=== PATIENT | male | born 1950 | race Caucasian/White ===

== ENCOUNTER 2018-05-17 08:16 | Outpatient (CLI) | payer OTHER, SELFPAY ==
[2018-05-17 08:35] LABS: Bilirubin Negative (Negative); Blood Negative (Negative); Clarity Clear; Glucose Negative (Negative); Ketones Negative (Negative); Leukocyte Esterase Negative (Negative); Nitrite Negative (Negative); Specific Gravity >= 1.030 (1.005-1.025); Urobilinogen 0.2 EU/dL (Up TO 0.2)
[2018-05-17 09:06] LABS: COMMENT (LAB VIEW ONLY) 278.23 mg/dL; Microalb ug/mg Crea 4.6 ug/mg Cr
[2018-05-17 10:57] LABS: CREATININE 0.91 mg/dL (0.70-1.30); Magnesium 1.9 mg/dL (1.8-2.4); Vitamin B12 258 pg/mL (193-986)
[2018-05-18 12:43] LABS: Hepatitis C Ab w Rflx HCV PCR Negative (NEGAT)
== END 2018-05-17 08:36 ==
LOC: LBO 08:16 → NCHCO 08:20
PROVIDERS: PCP Internal Medicine; Visit Provider Nurse Practitioner Family
DX: I10 Essential (primary) hypertension (principal); F43.0 Acute stress reaction; K50.90 Crohn's disease, unspecified, without complications; K21.9 Gastro-esophageal reflux disease without esophagitis; G47.33 Obstructive sleep apnea (adult) (pediatric); Z11.59 Encounter for screening for other viral diseases
CPT/HCPCS: 36415; 86803; 81003; 82043; 82565; 82570; 82607; 83735

== ENCOUNTER 2018-11-01 08:12 | Outpatient (CLI) | payer OTHER, SELFPAY ==
[2018-11-01 09:31] LABS: Cholesterol 129 mg/dL (50-200); HDL Cholesterol 41 mg/dL (40-60); LDL CHOLESTEROL 62 mg/dL (<100); Triglyceride 152 mg/dL (30-150)
== END 2018-11-01 08:32 ==
PROVIDERS: PCP Internal Medicine; Visit Provider Nurse Practitioner Family
DX: Z13.220 Encounter for screening for lipoid disorders (principal)
CPT/HCPCS: 36415; 80061; 83721

== ENCOUNTER 2019-02-13 11:21 | Outpatient (REF) | payer OTHER, SELFPAY ==
[2019-02-13 21:14] LABS: HCT 43.1 % (40.0-50.0); HGB 14.4 g/dL (13.5-17.5); Mean Corp. HGB Concentration 33.4 g/dL (32.0-36.0); Mean Corpuscular Hemoglobin 28.7 pg (27.0-33.0); Mean Platelet Volume 10.7 fL (8.0-11.0); Platelet Count 347 x1000/uL (130-400); RBC 5.01 m/cumm (4.50-6.00); RBC Distribution Width 13.1 % (11.8-14.1); White Blood Cell Count 7.81 k/cumm (4.4-10.8)
[2019-02-13 21:41] LABS: ALT 31 U/L (12-78); AST 24 U/L (15-37); Albumin 4.1 g/dL (3.4-5.0); Alkaline Phosphatase 56 U/L (46-116); BUN 16 mg/dL (7-18); Bilirubin, Total 0.5 mg/dL (0.2-1.0); CREATININE 0.92 mg/dL (0.70-1.30); Calcium 8.8 mg/dL (8.5-10.1); Chloride 105 mmol/L (98-107); Glucose 88 mg/dL (70-100); Potassium 3.9 mmol/L (3.5-5.1); Sodium 143 mmol/L (136-145); TSH (W/Ref FT4) 1.84 uIU/mL (0.36-3.74); Total Protein 7.2 g/dL (6.4-8.2)
== END 2019-02-13 11:41 ==
LOC: NCHCN 11:21
PROVIDERS: PCP Internal Medicine; Visit Provider Specialist/Technologist Athletic Trainer
DX: Z00.00 Encounter for general adult medical examination without abnormal findings (principal); Z13.29 Encounter for screening for other suspected endocrine disorder; Z13.228 Encounter for screening for other metabolic disorders; Z13.0 Encounter for screening for diseases of the blood and blood-forming organs and certain disorders involving the immune mechanism
CPT/HCPCS: 80053; 85027; 84443

== ENCOUNTER 2019-02-24 11:40 | Outpatient (REF) | payer OTHER, SELFPAY ==
[2019-02-27 12:19] LABS: Syphilis Serology (RPR) Negative (Negative)
[2019-02-27 14:23] LABS: HIV-1/2 Ag & Ab Screen Negative (NEGAT)
== END 2019-02-24 12:00 ==
LOC: NCHCN 11:40
PROVIDERS: PCP Internal Medicine; Visit Provider Specialist/Technologist Athletic Trainer
DX: Z11.3 Encounter for screening for infections with a predominantly sexual mode of transmission (principal); Z11.4 Encounter for screening for human immunodeficiency virus [HIV]
CPT/HCPCS: 87389; 86592

== ENCOUNTER 2019-06-01 10:34 | Outpatient (CLI) | payer OTHER, SELFPAY ==
[2019-06-02 10:03] LABS: PSA, Screening 7.5 ng/ml (0-6.5)
== END 2019-06-01 10:54 ==
PROVIDERS: PCP Internal Medicine; Visit Provider Nurse Practitioner Gerontology
DX: N40.1 Benign prostatic hyperplasia with lower urinary tract symptoms (principal); Z12.5 Encounter for screening for malignant neoplasm of prostate
CPT/HCPCS: 36415; 84153

== ENCOUNTER 2019-08-04 07:28 | Outpatient (CLI) | payer OTHER, SELFPAY ==
[2019-08-07 11:53] LABS: PSA, Screening 8.4 ng/mL (0.0-6.5)
== END 2019-08-04 07:48 ==
PROVIDERS: PCP Internal Medicine; Visit Provider Nurse Practitioner Gerontology
DX: N40.1 Benign prostatic hyperplasia with lower urinary tract symptoms (principal); Z12.5 Encounter for screening for malignant neoplasm of prostate
CPT/HCPCS: 36415; 84153

== ENCOUNTER 2019-08-18 07:50 | Outpatient (CLI) | payer OTHER, SELFPAY ==
[2019-08-18 08:56] LABS: HCT 40.5 % (40.0-50.0); HGB 13.4 g/dL (13.5-17.5); Mean Corp. HGB Concentration 33.1 g/dL (32.0-36.0); Mean Corpuscular Hemoglobin 28.7 pg (27.0-33.0); Mean Corpuscular Volume 86.7 fL (80-95); Mean Platelet Volume 10.4 fL (8.0-11.0); Platelet Count 324 x1000/uL (130-400); RBC 4.67 m/cumm (4.50-6.00); RBC Distribution Width 12.8 % (11.8-14.1); White Blood Cell Count 5.71 k/cumm (4.4-10.8)
[2019-08-18 09:19] LABS: Anion Gap 8.5 mmol/L (3-11); BUN 16 mg/dL (7-18); CO2 29.5 mmol/L (21.0-32.0); CREATININE 0.97 mg/dL (0.70-1.30); Calcium 8.6 mg/dL (8.5-10.1); Chloride 108 mmol/L (98-107); Glucose 89 mg/dL (74-106); Potassium 4.2 mmol/L (3.5-5.1); Sodium 146 mmol/L (136-145)
== END 2019-08-18 08:10 ==
PROVIDERS: PCP Internal Medicine; Visit Provider Internal Medicine
DX: R55 Syncope and collapse (principal)
CPT/HCPCS: 36415; 80048; 85027

== ENCOUNTER 2019-09-06 10:58 | Outpatient (CLI) | payer OTHER, SELFPAY ==
[2019-09-06 11:41] LABS: Bilirubin Negative (Negative); Blood Negative (Negative); Clarity Clear (Clear); Glucose Negative (Negative); Ketones Negative (Negative); Leukocyte Esterase Negative (Negative); Nitrite Negative (Negative); Specific Gravity 1.015 (1.005-1.025); Urobilinogen 0.2 EU/dL (Up TO 0.2)
[2019-09-06 12:06] LABS: COMMENT (LAB VIEW ONLY) 106.63 mg/dL; Microalb ug/mg Crea 13.2 ug/mg Cr
[2019-09-06 12:38] LABS: Vitamin B12 252 pg/mL (193-986)
== END 2019-09-06 11:18 ==
PROVIDERS: PCP Internal Medicine; Visit Provider Nurse Practitioner Family
DX: I10 Essential (primary) hypertension (principal); N40.0 Benign prostatic hyperplasia without lower urinary tract symptoms; M54.5 Low back pain; R55 Syncope and collapse; F43.23 Adjustment disorder with mixed anxiety and depressed mood; F41.8 Other specified anxiety disorders; G47.62 Sleep related leg cramps; K21.9 Gastro-esophageal reflux disease without esophagitis
CPT/HCPCS: 36415; 81003; 82043; 82570; 82607; 83735

== ENCOUNTER 2019-09-27 10:22 | Outpatient (CLI) | payer OTHER, SELFPAY ==
[2019-09-28 14:18] LABS: Free PSA/PSA Ratio 0.16 ratio
== END 2019-09-27 10:42 ==
PROVIDERS: PCP Internal Medicine; Visit Provider Nurse Practitioner Gerontology
DX: N40.1 Benign prostatic hyperplasia with lower urinary tract symptoms (principal); R97.20 Elevated prostate specific antigen [PSA]
CPT/HCPCS: 36415; 84154

== ENCOUNTER 2020-04-05 02:36 | Outpatient (CLI) | payer OTHER, SELFPAY | END 2020-04-05 02:56 | PROVIDERS: PCP Internal Medicine; Visit Provider Nurse Practitioner Gerontology | DX: N40.1 Benign prostatic hyperplasia with lower urinary tract symptoms (principal); Z12.5 Encounter for screening for malignant neoplasm of prostate | CPT/HCPCS: 36415; 84153 ==

== ENCOUNTER 2020-06-16 22:58 | Emergency (ER) | payer OTHER, SELFPAY ==
[2020-06-16] VITALS (11 sets, daily range): BP systolic 137–182; BP diastolic 71–83; PULSE 63–74; RESP 9–18; TEMP 36.5; O2SAT 98–100
--- NOTE | 2020-06-16 23:00 | RT.EKG_ITS ---
APPROVED REPORT Exam: Resting ECG Patient Location: E HR:67 bpm ECG Measurements Heart Rate 67 AXIS NM 203 P 83 QRSd 87 QRS -26 QT 422 T 60 QTc 445 Conclusion Sinus rhythm...normal P axis, V-rate 60- 99 Consider anterior infarct...Q >30mS in V2-V5
--- NOTE | 2020-06-16 23:15 | DI.CT_ITS ---
EXAM: CT HEAD WO CLINICAL HISTORY: dizziness,vertigo. TECHNIQUE: Imaging Protocol: Axial computed tomography images with coronal and sagittal reformatted images were created and reviewed COMPARISON: No exams were available for comparison FINDINGS: Ventricles and Extra axial spaces: Normal in size and morphology for the patient's age. Hemorrhage: None. Cerebral parenchyma: Normal. No infarct or mass. Mild atrophy consistent with the patient's age. Midline shift: None. Brainstem/Cerebellum: Normal. Calvarium: Normal. Visualized Paranasal sinuses/Mastoids: Opacification of the ethmoid sinuses as well as prominent circ umferential mucosal thickening involving the maxillary sinus and appearance suggesting chronic sinusi tis. There is no evidence of acute sinusitis or bony erosion. Mastoid air cells appear clear. Soft Tissues: Unremarkable. IMPRESSION: No acute intracranial process.Severe sinus disease. RADIATION DOSE DELIVERED: 760.2mGy.cm Total DLP DATA REPOSITORY: All CT scans at this facility are submitted to the National Radiology Data Registry (NRDR) Dose Index Registry (DIR) with the [employer] ([employer]). RADIATION OPTIMIZATION: All CT scans at this facility use at least one of these dose optimization te chniques: automated exposure control; mA and/or kV adjustment per patient size (includes targeted exa ms where dose is matched to clinical indication); or iterative reconstruction.
--- NOTE | 2020-06-16 23:18 | W.ED.GENAD ---
Discharge Plan Disposition Patient Disposition: HOME Condition: Stable Discharge Details Clinical Impression: Light-headed, Maxillary sinusitis, Hypokalemia Primary Care Provider: Anil Mcwilliams ED Provider: Cachorro Maharaj Home Meds and New Rx's Prescriptions: New amoxicillin-pot clavulanate [Augmentin] 875-125 mg tablet 1 tab PO BID Qty: 14 RF: 0 Continued tamsulosin [Flomax] 0.4 mg capsule 0.4 mg PO DAILY Qty: 90 RF: 3 venlafaxine 37.5 mg capsule,extended release 24hr 37.5 mg PO DAILY RF: 0 omeprazole 20 MG capsule,delayed release(DR/EC) 20 mg PO DAILY@0730 RF: 0 amlodipine 5 MG tablet 5 mg PO DAILY RF: 0 oxcarbazepine 300 mg tablet 300 mg PO DAILY RF: 0 sildenafil 100 mg tablet 100 mg PO PRN RF: 0 aspirin [Ecotrin Low Strength] 81 MG tablet,delayed release (DR/EC) 81 mg PO DAILY RF: 0 multivitamin 1 EACH capsule 1 ea PO DAILY RF: 0 Discharge Instructions Instructions: Sinusitis (ED), Hypokalemia (ED) Additional Instructions: your blood work showed your potassium level was mildly low, this should be rechecked when you follow up with your primary care provider within 1-2 weeks your cat scan showed sinus disease otherwise no concerning findings in the head if you feel more ill, have chest pain or difficulty breathing return to the emergency department Medical Decision Making 70 yo male with hx of bph, gerd, who comes in with 2 weeks of intermittent head fogginess and feeling lightheaded and dizziness with standing up primarily but has been more persistent today. Denies fevers, cough, headache, n/v, chest pain, dyspnea, falls. He arrives walking with normal gait and speaking in full sentences with clear speech. NIH of 0 on exam, CN II-XII intact, no neck stiffness, normal lung exam no carotid bruits. Suspect possible vertigo normal ecg so doubt arrythmia as feels lightheaded now with normal rhythm. Exam reassuring including HINTS exam that it is not central vertigo but given head fogginess sensation will image to evaluate for possible mass and monitor. He does have bilateral cerumen impaction, will have nursing irrigate this to see if it relieves any symptoms ct shows sinus disease otherwise unremarkable and labs show mild low K otherwise unremarkable, did have some relief of symptoms after ear irrigation and normal tm's on exam. He still has reassuring neuro exam and stable gait and is tolerating PO. Will d/c and have him f/u with pcp, return precautions given Differential Diagnosis Differential Diagnosis: vertigo, dizziness, anemia, electrolyte abnormality Medical Records Medical records reviewed: Yes I reviewed the patient's medical records. Imaging Data Radiologic Study: Attestation: I personally reviewed and interpreted this imaging study as follows: Imaging: CT Scan Radiologist's impression: IMPRESSION: 1. No acute intracranial findings. 2. Moderate sinus disease, likely at least partially chronic. Lab Data Lab results reviewed: Yes I reviewed the patient's lab results. ECG Data Attestation: I personally reviewed and interpreted this ECG (s) as follows: Prior ECG tracings: not available for review Interpretation: sinus rhythm, rate of 67, pr 203, qtc 445 HPI General Mode of arrival: ambulatory. Date/Time Provider Initiated Documentation: 06/16/20 22:58. Limitations to Documentation: no limitations. Information obtained by: patient. History of Present Illness 70 year old M presents to the emergency department with the chief complaint of head foggy, described as moderate, Patient started experiencing this week(s) (2) and it has been intermittent. No relieving factors improve symptom(s), No exacerbating factors reported . Patient did receive the following treatments prior to arrival, none Related Data Home Medications Medication Instructions Recorded Confirmed omeprazole 20 mg PO DAILY@0730 02/04/13 06/16/20 amlodipine 5 mg PO DAILY 11/01/14 06/16/20 aspirin [Ecotrin Low Strength] 81 mg PO DAILY 07/01/16 06/16/20 multivitamin 1 ea PO DAILY 07/01/16 06/16/20 tamsulosin 0.4 mg capsule 0.4 mg PO DAILY #90 cap 05/16/19 06/16/20 venlafaxine 37.5 mg 37.5 mg PO DAILY 05/16/19 06/16/20 capsule,extended release 24 hr oxcarbazepine 300 mg PO DAILY 06/16/20 06/16/20 sildenafil 100 mg PO PRN 06/16/20 06/16/20 amoxicillin-pot clavulanate 1 tab PO BID #14 tab 06/17/20 [Augmentin] Previous Rx's Medication Instructions Recorded tamsulosin 0.4 mg capsule 0.4 mg PO DAILY #90 cap 05/16/19 amoxicillin-pot clavulanate 1 tab PO BID #14 tab 06/17/20 [Augmentin] Allergies Allergy/AdvReac Type Severity Reaction Status Date / Time oxycodone Allergy Intermediate Hives, Verified 06/16/20 23:08 Itching lisinopril AdvReac Cough Verified 06/16/20 23:08 General Stated Complaint: Dizzy/Sync WAYNE: 3 Review of Systems All systems reviewed & are unremarkable except as noted in HPI and below Constitutional Constitutional: Denies chills, Denies fever(s) and Denies weakness Cardiovascular Cardiovascular: Denies chest pain and Denies dyspnea Respiratory Respiratory: Denies cough and Denies dyspnea Gastrointestinal Gastrointestinal: Denies abdominal pain, Denies nausea and Denies vomiting Musculoskeletal Musculoskeletal: Denies joint swelling Neurologic Neurologic: Denies weakness [facility] Medical History (Updated 06/17/20 @ 00:21 by Cachorro Maharaj MD) Abnormal EKG BPH (benign prostatic hyperplasia) GERD (gastroesophageal reflux disease) HBP (high blood pressure) Sleep apnea Surgical History (Updated 05/11/18 @ 14:35 by for; to (do) [facility] [place]) Repair of inguinal hernia (08/03/17) right, direct Transurethral prostatectomy Social History Smoking/Tobacco Use Status: Former Tobacco Use Smoking risk assessment performed?: Yes Alcohol Intake: current Alcohol Intake frequency: holidays/special occasions only Drug use: Never Do you feel safe at home: Yes Do you feel safe in your relationship?: Yes Exam Const General: no acute distress Orientation: alert [facility] Head: normal to inspection Ears: external ears normal General nose exam: external nose normal Mouth: moist mucous membranes Eyes General: appearance normal, both eyes and all related structures Neck Neck: normal visual inspection Resp Effort & Inspection: normal respiratory effort and able to speak in complete sentences Cardio Rate: regular rate Skin General skin exam: no rashes or lesions noted Neuro General: patient alert and patient oriented x3 Extrem General: normal to inspection Psych Mental Status: mental status grossly normal Course Vital Signs Vital signs: Vital Signs Temperature 36.5 C 06/16/20 23:02 Pulse 70 06/16/20 23:02 Respiratory Rate 13 06/16/20 23:02 Blood Pressure 182/79 H 06/16/20 23:02 Pulse Oximetry 99 06/16/20 23:02 Temperature 36.5 C 06/16/20 23:02 Pulse 70 06/16/20 23:02 Respiratory Rate 16 06/16/20 23:13 Respiratory Effort Non-Labored 06/16/20 23:13 Blood Pressure 182/79 H 06/16/20 23:02 Pulse Oximetry 99 06/16/20 23:02 Pain Level 0 06/16/20 23:02
[2020-06-16 23:30] LABS: Abs Immature Grans 0.02 10^3/uL (0.0-0.06); Absolute Basophil Count 0.06 10^3/uL (0.0-0.2); Absolute Eosinophil Count 0.33 10^3/uL (0.0-0.7); Absolute Lymphocyte Count 1.79 10^3/uL (1.2-3.4); Absolute Neutrophil Count 2.62 10^3/uL (1.2-6.7); Basophils % 1.1; Eosinophils % 6.2; HCT 39.5 % (40.0-50.0); HGB 13.7 g/dL (13.5-17.5); Immature Grans % 0.4; Lymphocytes % 33.6; MCH 29.7 pg (27.0-33.0); MCHC 34.7 % (32.0-36.0); MCV 85.5 fL (80-95); Monocytes % 9.4; Neutrophils % 49.3; Nucleated RBC 0 %; Platelet Count 268 10^3/uL (130-400); RBC 4.62 10^6/uL (4.36-5.78); RDW 12.3 % (11.8-14.1); RDW-SD 38.4 fL; WBC 5.32 10^3/uL (4.4-10.8)
[2020-06-16 23:44] LABS: ALT 26 U/L (16-63); AST 23 U/L (15-37); Alkaline Phosphatase 67 U/L (46-116); Anion Gap 9.3 mmol/L (3-11); BUN 15 mg/dL (7-18); Bilirubin, Total 0.3 mg/dL (0.2-1.0); CO2 25.7 mmol/L (21.0-32.0); Calcium 8.1 mg/dL (8.5-10.1); Chloride 107 mmol/L (98-107); Glucose 142 mg/dL (74-106); PTT Activated 21.9 sec (21.0-27.5); Potassium 3.1 mmol/L (3.5-5.1); Prothrombin Time 10.4 sec (9.3-11.0); Sodium 142 mmol/L (136-145); Total Protein 7.4 g/dL (6.4-8.2)
[2020-06-16 23:54] LABS: Magnesium 2.1 mg/dL (1.8-2.4)
[2020-06-16 23:55] LABS: ETHANOL BLOOD < 3.0 mg/dL (<3); Troponin I < 0.05 ng/mL (<0.06)
--- NOTE | 2020-06-16 23:55 | DI.VRAD_ITS ---
PROCEDURE INFORMATION: Exam: CT Head Without Contrast Exam date and time: 06/16/2020 23:40 Age: 70 years old Clinical indication: Patient HX: Dizziness, vertigo; Additional info: Dizziness, vertigo, usually in morning had improved but worse again and felt bad all day TECHNIQUE: Imaging protocol: Computed tomography of the head without contrast. Radiation optimization: All CT scans at this facility use at least one of these dose optimization techniques: automated exposure control; mA and/or kV adjustment per patient size (includes targeted exams where dose is matched to clinical indication); or iterative reconstruction. COMPARISON: No relevant prior studies available. FINDINGS: Brain: Mild cerebral atrophy. No edema or hemorrhage. No significant white matter disease for the patient's age. Cerebral ventricles: No ventriculomegaly. Bones/joints: Moderate opacification in the maxillary sinuses associated with hyperostosis. Moderate mucosal thickening in the ethmoid and right frontal sinuses. No air-fluid levels. Paranasal sinuses: Moderate sinus disease, likely at least partially chronic. Mastoid air cells: No mastoid effusion. Soft tissues: No suspicious lesions. IMPRESSION: 1. No acute intracranial findings. 2. Moderate sinus disease, likely at least partially chronic. Dictated and Authenticated by: Zuly Malagon MD. Ordering:SARAH Ivory MD
[2020-06-17] VITALS: BP 158/84; PULSE 69; PULSE 70; RESP 19; O2SAT 97
[2020-06-17 00:01] VITALS: PULSE 69; RESP 14; O2SAT 96
[2020-06-17 00:10] VITALS: PULSE 71; RESP 14; O2SAT 97
[2020-06-17 00:16] VITALS: BP 162/83; PULSE 72; PULSE 74; RESP 15; O2SAT 98
[2020-06-17 00:20] VITALS: PULSE 74; RESP 14; O2SAT 96
[2020-06-17] MEDS: Amoxicillin 875/Clav. 125 TAB PO (00:25)
== END 2020-06-17 00:35 | disposition home or self-care (01) ==
PROVIDERS: Emergency Provider Emergency Medicine; PCP Internal Medicine
DX: J01.00 Acute maxillary sinusitis, unspecified (principal); R42 Dizziness and giddiness; E87.6 Hypokalemia
CPT/HCPCS: 36415; 69209; 80053; 93005; 99285; 70450; 80320; 83735; 84443; 84484; 85025; 85610; 85730; 93010; 99284

== ENCOUNTER 2020-06-25 18:45 | Outpatient (REF) | payer OTHER, SELFPAY ==
[2020-06-25 23:39] LABS: Potassium 3.3 mmol/L (3.5-5.1)
== END 2020-06-25 19:05 ==
LOC: NCHCN 18:45
PROVIDERS: PCP Internal Medicine; Visit Provider Internal Medicine
DX: E87.6 Hypokalemia (principal)
CPT/HCPCS: 84132

== ENCOUNTER 2020-07-30 11:48 | Outpatient (REF) | payer BC, SELFPAY ==
[2020-07-30 14:11] LABS: BUN 12 mg/dL (7-18); CREATININE 0.99 mg/dL (0.70-1.30); Calcium 8.5 mg/dL (8.5-10.1); Calculated LDL 60 mg/dL (<100); Chloride 106 mmol/L (98-107); Cholesterol 119 mg/dL (<200); Glucose 87 mg/dL (74-106); HDL Cholesterol 38 mg/dL (40-60); Magnesium 1.9 mg/dL (1.8-2.4); Potassium 3.6 mmol/L (3.5-5.1); Sodium 141 mmol/L (136-145); Triglyceride 107 mg/dL (<150); Vitamin B12 324 pg/mL (193-986)
== END 2020-07-30 12:08 ==
LOC: NCHCN 11:48
PROVIDERS: PCP Internal Medicine; Visit Provider Nurse Practitioner Family
DX: H83.09 Labyrinthitis, unspecified ear (principal); J32.9 Chronic sinusitis, unspecified; R42 Dizziness and giddiness; E87.6 Hypokalemia; M54.5 Low back pain; F41.8 Other specified anxiety disorders; G47.62 Sleep related leg cramps; I10 Essential (primary) hypertension
CPT/HCPCS: 80048; 80061; 82607; 83735

== ENCOUNTER 2020-09-02 11:01 | Outpatient (REF) | payer MEDICARE, SELFPAY ==
[2020-09-02 17:36] LABS: Microalb ug/mg Crea 7.6 ug/mg Cr
== END 2020-09-02 11:02 | disposition home or self-care (01) ==
LOC: NCHCN 11:01
PROVIDERS: PCP Internal Medicine; Visit Provider Nurse Practitioner Family
DX: R42 Dizziness and giddiness (principal); E87.6 Hypokalemia; F41.8 Other specified anxiety disorders; G47.62 Sleep related leg cramps; M54.5 Low back pain
CPT/HCPCS: 82043; 82570

== ENCOUNTER → 2020-10-07 11:06 | Outpatient (BNVA) | payer MEDICARE, SELFPAY | PROVIDERS: PCP Internal Medicine; Referring Provider Internal Medicine; Visit Provider Student in an Organized Health Care Education/Training Program | DX: M65.312 Trigger thumb, left thumb (principal) | CPT/HCPCS: 99213 ==

== ENCOUNTER 2020-11-08 01:01 | Outpatient (CLI) | payer MEDICARE, SELFPAY | END 2020-11-08 01:02 | disposition home or self-care (01) | LOC: LOS 01:01 | PROVIDERS: PCP Internal Medicine; Visit Provider Nurse Practitioner Gerontology | DX: R97.20 Elevated prostate specific antigen [PSA] (principal); N40.1 Benign prostatic hyperplasia with lower urinary tract symptoms | CPT/HCPCS: 36415; 84153 ==

== ENCOUNTER → 2020-11-11 09:22 | Outpatient (BNVA) | payer MEDICARE, SELFPAY | PROVIDERS: PCP Internal Medicine; Referring Provider Internal Medicine; Visit Provider Nurse Practitioner Gerontology | DX: N40.1 Benign prostatic hyperplasia with lower urinary tract symptoms (principal); R97.20 Elevated prostate specific antigen [PSA]; N28.89 Other specified disorders of kidney and ureter | CPT/HCPCS: 99214 ==

== ENCOUNTER 2020-12-04 08:57 | Emergency (ER) | payer MEDICARE, OTHER, SELFPAY ==
[2020-12-04] VITALS (58 sets, daily range): BP systolic 135–172; BP diastolic 72–128; PULSE 63–89; RESP 10–29; TEMP 36.4–36.5; O2SAT 96–100
--- NOTE | 2020-12-04 09:00 | RT.EKG_ITS ---
APPROVED REPORT Exam: Resting ECG Reason for Exam: dizziness Patient Location: E HR:66 bpm ECG Measurements Heart Rate 66 AXIS ID 178 P 26 QRSd 86 QRS -29 QT 423 T 31 QTc 444 Conclusion Sinus rhythm...normal P axis, V-rate 60- 99 Inferior infarct, old...Q >35mS, II III aVF Anterior infarct, old...Q >40mS, abnormal ST-T, V2-V5 sinus rhythm at 66, normal axis, QTC 444, no WPW, no Brugada, no HOCM, Q waves leads III and aVF, ross ds V1 through V3, no STEMI, nondiagnostic EKG
--- NOTE | 2020-12-04 09:23 | ED.GENADUL_ITS ---
Discharge Plan Disposition Patient Disposition: HOME Condition: Stable Discharge Details Clinical Impression: Vertigo, Fatigue, Hematuria Primary Care Provider: Anil Mcwilliams ED Provider: Mercedes Damon Home Meds and New Rx's Prescriptions: New diazepam [Valium] 5 mg tablet 5 mg PO BID PRN (Reason: vertigo) Qty: 8 RF: 0 Continued mesalamine [Lialda] 1.2 gram tablet,delayed release (DR/EC) 2.4 g PO DAILY RF: 0 prednisone 2.5 mg tablet 2.5 mg PO DAILY RF: 0 venlafaxine 37.5 mg capsule,extended release 24hr 37.5 mg PO DAILY RF: 0 tamsulosin [Flomax] 0.4 mg capsule 0.4 mg PO DAILY Qty: 90 RF: 3 omeprazole 20 MG capsule,delayed release(DR/EC) 20 mg PO DAILY@0730 RF: 0 amlodipine 5 MG tablet 5 mg PO DAILY RF: 0 oxcarbazepine 300 mg tablet 300 mg PO DAILY RF: 0 sildenafil 100 mg tablet 100 mg PO PRN RF: 0 losartan 25 mg tablet 25 mg PO DAILY RF: 0 aspirin [Ecotrin Low Strength] 81 MG tablet,delayed release (DR/EC) 81 mg PO DAILY RF: 0 multivitamin 1 EACH capsule 1 ea PO DAILY RF: 0 Discharge Instructions Instructions: Vertigo (ED), Hematuria (ED), Fatigue (ED) Additional Instructions: Please return immediately to the emergency department if you develop any new or worsening symptoms, if your condition does not improve as expected, or if you become otherwise concerned. It is extremely important that you call soon as possible to make an appointment to be seen in follow-up for this visit by your primary care doctor. Referrals: Anil Mcwilliams MD [Primary Care Provider] - Discharge Data Discharge Date/Time-TO BE ENTERED AT DEPARTURE: 12/04/20 16:00 Medical Decision Making Ashkan Mejia is a 70-year-old man who presented to the emergency department with intermittent sensation that his head is moving, brain fog, fatigue over the past 2 days. On exam patient is well enough and nontoxic appearing. Right-sided cerumen impaction, left TM normal. Neurologic exam is nonfocal. HINTS exam is normal except for absence of saccade during horizontal head impulse test. Concern for peripheral versus central vertigo, metabolic/lyte disturbance, other. Doubt acute coronary syndrome. Exam/history at this time is not consistent with sepsis, meningitis, subarachnoid hemorrhage. Plan for CT head, EKG, screening labs. Will monitor and reassess. CT head negative. Labs reviewed, WBC 8.5, lactate 2.3, potassium 3.4, anion gap 11.3, trace hematuria on UA. Suspect dehydration, will continue IV fluid hydration. Plan for MRI/MRA for rule out central vertigo. MRI is negative per radiology. Patient reports feeling significantly improved after fluids, though does state that he has occasional spinning sensation with movement. Patient again declines meclizine due to risk of urinary retention that he has had with medication in the past, plan for Valium, outpatient follow- up. Patient is scheduled to have outpatient follow-up with his PCP next week. I had a lengthy discussion with the patient regarding RTED precautions, home care, and importance of outpt f/u. Pt verbalized understanding of the plan and was amenable. All questions were answered. Pt was discharged to home with clear plan for outpt f/u. Medical Records Medical records reviewed: Yes I reviewed the patient's medical records. Imaging Data Radiologic Study: Attestation: I personally reviewed and interpreted this imaging study as follows: Radiologist's impression: EXAM: CT HEAD WO CLINICAL HISTORY: vertigo. TECHNIQUE: Imaging Protocol: Axial computed tomography images with coronal and sagittal reformatted images were created and reviewed COMPARISON: CT CT HEAD WO from 06/16/2020 FINDINGS: There are no skull fractures. Mucoperiosteal thickening in the visualized maxillary sinuses again noted. Also mucosal thickening in the ethmoid air cells. There is no evidence of intracranial hemorrhage, mass effect, or shift of midline structures. There are no extra-axial fluid collections. The ventricles are not enlarged or shifted and there is no blood within the ventricular system nor within the basal cisterns. IMPRESSION: No acute intracranial findings on this noninfused CT scan of the brain. No significant change compared to 06/16/2020. Paranasal sinus disease again noted described above. Please note that only part of the paranasal sinuses are included in the field of view of this study. EXAM: XR CHEST 2V PA LATERAL CLINICAL HISTORY: dizzy, general malaise. TECHNIQUE: 2D digital imaging was performed. COMPARISON: No exams were available for comparison FINDINGS: Heart size is normal. The mediastinum is not widened. There is subtle suggestion of a 7 millimeter noncalcified nodule in the mid- lower right lung field. Possibly significant versus is breast nipple. Recommend repeating the frontal view with bilateral metallic nipple markers in place. No other pulmonary findings nor pleural effusions. No pneumothorax. Chest leads in place. There is a moderate compression fracture midthoracic vertebral body which not evident IMPRESSION: As above. Recommend repeating the frontal view with bilateral metallic nipple markers in place. Mid level thoracic compression fracture, not previously present in 2016. Lab Data Lab results reviewed: Yes I reviewed the patient's lab results. Labs: Laboratory Tests Range/Units 12/04/20 12/04/20 12/04/20 10:00 10:00 10:00 WBC (4.4-10.8) 10^3/uL 8.52 RBC (4.36-5.78) 10^6/uL 5.41 Hgb (13.5-17.5) g/dL 15.5 Hct (40.0-50.0) % 46.1 MCV (80-95) fL 85.2 MCH (27.0-33.0) pg 28.7 MCHC (32.0-36.0) % 33.6 RDW (11.8-14.1) % 12.9 Plt Count (130-400) 10^3/uL 352 MPV (8.0-11.0) fL 9.6 Immature Gran % 0.6 Neutrophils % 74.3 Lymphocytes % 15.1 Monocytes % 6.9 Eosinophils % 2.2 Basophils % 0.9 Nucleated RBC % % 0 Absolute Neutrophils (1.2-6.7) 10^3/uL 6.32 Absolute Lymphocytes (1.2-3.4) 10^3/uL 1.29 Absolute Monocytes (0.1-0.8) 10^3/uL 0.59 Absolute Eosinophils (0.0-0.7) 10^3/uL 0.19 Absolute Basophils (0.0-0.2) 10^3/uL 0.08 VBG Lactate (0.6-1.4) mmol/L 2.3 H* Sodium (136-145) mmol/L 143 Potassium (3.5-5.1) mmol/L 3.4 L Chloride (98-107) mmol/L 104 Carbon Dioxide (21.0-32.0) mmol/L 27.7 Anion Gap (3-11) mmol/L 11.3 H BUN (7-18) mg/dL 12 Creatinine (0.70-1.30) mg/dL 1.0 Estimated GFR/1.73 m2 (mL/min/1.73m2) >= 60.00 Glucose (74-106) mg/dL 99 Calcium (8.5-10.1) mg/dL 8.9 Total Bilirubin (0.2-1.0) mg/dL 0.4 AST (15-37) U/L 20 ALT (16-63) U/L 28 Alkaline Phosphatase (46-116) U/L 57 Troponin I (<0.06) ng/mL < 0.05 Total Protein (6.4-8.2) g/dL 8.2 Albumin (3.4-5.0) g/dL 4.3 TSH (0.36-3.74) uIU/mL 1.84 Urine Color (Yellow) Urine Clarity (Clear) Urine pH (5-8) Ur Specific [place] (1.005-1.025) Urine Protein (Negative) mg/dL Urine Ketones (Negative) mg/dL Urine Blood (Negative) Urine Nitrite (Negative) Urine Bilirubin (Negative) Urine Urobilinogen (Up TO 0.2) EU/dL Ur Leukocyte Esterase (Negative) Urine RBC (0-2) HPF Urine WBC (0-5) HPF Ur Epithelial Cells (Negative) HPF Urine Crystals (Negative) HPF Urine Bacteria (Negative) HPF Urine Casts (Negative) LPF Urine Mucus (Negative) Ur Culture Indicated? Urine Glucose (Negative) mg/dL Range/Units 12/04/20 12/04/20 12:33 14:18 WBC (4.4-10.8) 10^3/uL RBC (4.36-5.78) 10^6/uL Hgb (13.5-17.5) g/dL Hct (40.0-50.0) % MCV (80-95) fL MCH (27.0-33.0) pg MCHC (32.0-36.0) % RDW (11.8-14.1) % Plt Count (130-400) 10^3/uL MPV (8.0-11.0) fL Immature Gran % Neutrophils % Lymphocytes % Monocytes % Eosinophils % Basophils % Nucleated RBC % % Absolute Neutrophils (1.2-6.7) 10^3/uL Absolute Lymphocytes (1.2-3.4) 10^3/uL Absolute Monocytes (0.1-0.8) 10^3/uL Absolute Eosinophils (0.0-0.7) 10^3/uL Absolute Basophils (0.0-0.2) 10^3/uL VBG Lactate (0.6-1.4) mmol/L Sodium (136-145) mmol/L Potassium (3.5-5.1) mmol/L Chloride (98-107) mmol/L Carbon Dioxide (21.0-32.0) mmol/L Anion Gap (3-11) mmol/L BUN (7-18) mg/dL Creatinine (0.70-1.30) mg/dL Estimated GFR/1.73 m2 (mL/min/1.73m2) Glucose (74-106) mg/dL Calcium (8.5-10.1) mg/dL Total Bilirubin (0.2-1.0) mg/dL AST (15-37) U/L ALT (16-63) U/L Alkaline Phosphatase (46-116) U/L Troponin I (<0.06) ng/mL < 0.05 Total Protein (6.4-8.2) g/dL Albumin (3.4-5.0) g/dL TSH (0.36-3.74) uIU/mL Urine Color (Yellow) Yellow Urine Clarity (Clear) Clear Urine pH (5-8) 7.0 Ur Specific [place] (1.005-1.025) 1.020 Urine Protein (Negative) mg/dL Negative Urine Ketones (Negative) mg/dL Negative Urine Blood (Negative) Trace-lysed H Urine Nitrite (Negative) Negative Urine Bilirubin (Negative) Negative Urine Urobilinogen (Up TO 0.2) EU/dL 0.2 Ur Leukocyte Esterase (Negative) Negative Urine RBC (0-2) HPF 3-5 H Urine WBC (0-5) HPF 0-2 Ur Epithelial Cells (Negative) HPF Few Urine Crystals (Negative) HPF Negative Urine Bacteria (Negative) HPF Rare Urine Casts (Negative) LPF Negative Urine Mucus (Negative) Trace Ur Culture Indicated? No Urine Glucose (Negative) mg/dL Negative ECG Data Attestation: I personally reviewed and interpreted this ECG (s) as follows: Interpretation: EKG shows sinus rhythm at 66, normal axis, QTC 444, no WPW, no Brugada, no HOCM, Q waves leads III and aVF, leads V1 through V3, no STEMI, nondiagnostic EKG HPI General Mode of arrival: ambulatory . Date/Time Provider Initiated Documentation: 12/04/20 09:21 . Limitations to Documentation: no limitations . Information obtained by: patient, RN notes reviewed and old records reviewed . HPI Narrative: Ashkan Mejia is a 70-year-old man with history of GERD, hypertension presenting to the emergency department with dizziness. Patient reports that he has a history of high blood pressure and takes amlodipine. He recently was trialed on lisinopril but developed a cough, and that medication was stopped. Patient was reports that he was prescribed losartan by PCP and started that medication on 12/01/2020. Patient reports that that day he had some intermittent episodes of feeling dizzy with bending over, they resolved within seconds. Patient reports that he gradually has begun to feel overall unwell, including fatigue, clammy, and brain fog. Patient also reports that he did have some further sensation of motion this morning that is currently not occurring. Patient reports that his dizziness feels like his head is moving when it is not. Patient reports that he had all of these symptoms when he was seen here previously in May, per patient and record review, he was seen here in this emergency department, underwent CT head, was diagnosed with sinusitis and labyrinthitis, and was discharged home. Patient then underwent further work-up by GI in [place], and it was determined that he has ulcerative colitis. Patient has been treated with high-dose prednisone since that diagnosis, and is currently tapering off prednisone. His current dose is 2.5 mg/day, and he is on day 10 of that dose. Patient reports that he received a second dose of the Moderna Covid vaccine on October 04. Patient reports that he felt like his vision was blurry this morning and he could not focus. Patient states that his vision is now normal and at baseline. He denies appetite changes, fever, shortness of breath, cough, vomiting, diarrhea, constipation, numbness, weakness, rash, hearing changes. Related Data Home Medications Medication Instructions Recorded Confirmed omeprazole 20 mg PO DAILY@0730 02/04/13 12/04/20 amlodipine 5 mg PO DAILY 11/01/14 12/04/20 aspirin [Ecotrin Low Strength] 81 mg PO DAILY 07/01/16 12/04/20 multivitamin 1 ea PO DAILY 07/01/16 12/04/20 venlafaxine 37.5 mg 37.5 mg PO DAILY 05/16/19 12/04/20 capsule,extended release 24 hr oxcarbazepine 300 mg PO DAILY 06/16/20 11/11/20 sildenafil 100 mg PO PRN 06/16/20 12/04/20 tamsulosin 0.4 mg capsule 0.4 mg PO DAILY #90 cap 06/26/20 12/04/20 mesalamine 1.2 gram tablet,delayed 2.4 g PO DAILY 11/11/20 12/04/20 release prednisone 2.5 mg tablet 2.5 mg PO DAILY 11/11/20 12/04/20 diazepam [Valium] 5 mg PO BID PRN #8 tab 12/04/20 losartan 25 mg PO DAILY 12/04/20 12/04/20 Previous Rx's Medication Instructions Recorded tamsulosin 0.4 mg capsule 0.4 mg PO DAILY #90 cap 06/26/20 diazepam [Valium] 5 mg PO BID PRN #8 tab 12/04/20 Allergies Allergy/AdvReac Type Severity Reaction Status Date / Time oxycodone Allergy Intermediate Hives, Verified 12/04/20 09:22 Itching lisinopril AdvReac Cough Verified 12/04/20 09:22 General Stated Complaint: Dizzy/Sync WAYNE: 3 Review of Systems Narrative: Constitutional: denies fevers Eyes: denies eye pain, reports blurry vision this morning now resolved ENT: denies ear pain,, hearing changes, dental pain, sore throat Cardiovascular: denies chest pain, edema Respiratory: denies SOB, cough GI: denies abdominal pain, vomiting, diarrhea : denies flank pain MSK: denies back pain, neck pain, arthralgias, myalgias Skin: denies rash Neuro: denies headaches, numbness, weakness reports a sensation of his head moving [facility] Medical History Abnormal EKG BPH (benign prostatic hyperplasia) GERD (gastroesophageal reflux disease) HBP (high blood pressure) Sleep apnea Trigger thumb of left hand Surgical History (Updated 05/11/18 @ 14:35 by [place]) Repair of inguinal hernia (08/03/17) right, direct Transurethral prostatectomy Social History Smoking/Tobacco Use Status: Former Tobacco Use Smoking risk assessment performed?: Yes Alcohol Intake: current Alcohol Intake frequency: holidays/special occasions only Drug use: Never Substance use type: does not use Do you feel safe at home: Yes Do you feel safe in your relationship?: Yes Exam Narrative Exam Narrative: Constitutional: well and [id number], pleasant, conversing normally HENT: head atraumatic/normocephalic/normal inspection, mucous membranes moist, right TM not visible secondary to cerumen, left TM normal Eyes: conjunctiva normal, sclera normal, pupils 3mm b/l, equal round reactive to light and accommodation, right-sided horizontal nystagmus, extraocular movements intact Neck: no stridor, normal ROM, trachea midline Chest: normal inspection Resp: normal work of breathing, LCTAB Cardio: normal rate, normal rhythm, no murmur appreciated GI: abdomen soft, non-tender, non-distended Back: normal inspection, no rash Skin: warm, dry, normal color, no rash Neuro: alert, not altered, grossly non-focal, normal tone, cranial nerves II through XII intact, motor 5 out of 5 throughout, no session and heel-to-toe intact bilaterally. Sensation intact throughout. Ext: no edema, no posterior calf tenderness to palpation Psych: normal mood, normal affect, normal behavior Course Vital Signs Vital signs: Vital Signs Temperature 36.4 C L 12/04/20 09:17 Pulse 70 12/04/20 09:17 Respiratory Rate 12 12/04/20 09:17 Blood Pressure 156/73 H 12/04/20 09:17 Pulse Oximetry 97 12/04/20 09:17 Temperature 36.4 C L 12/04/20 09:17 Temperature Source Skin 12/04/20 09:17 Pulse 70 12/04/20 09:17 Respiratory Rate 12 12/04/20 09:17 Respiratory Effort Non-Labored 12/04/20 09:20 Blood Pressure 156/73 H 12/04/20 09:17 Blood Pressure Position Supine 12/04/20 09:17 Pulse Oximetry 97 12/04/20 09:17 Oxygen Delivery Method Room Air 12/04/20 09:17 Oxygen Flow Rate 0 12/04/20 09:17 Pain Level 0 12/04/20 09:17
--- NOTE | 2020-12-04 09:45 | DI.CT_ITS ---
Exam(s) CT HEAD WO EXAM: CT HEAD WO CLINICAL HISTORY: vertigo. TECHNIQUE: Imaging Protocol: Axial computed tomography images with coronal and sagittal reformatted images were created and reviewed COMPARISON: CT CT HEAD WO from 06/16/2020 FINDINGS: There are no skull fractures. Mucoperiosteal thickening in the visualized maxillary sinuses again n oted. Also mucosal thickening in the ethmoid air cells. There is no evidence of intracranial hemorrhage, mass effect, or shift of midline structures. There are no extra-axial fluid collections. The ventricles are not enlarged or shifted and there is no blo od within the ventricular system nor within the basal cisterns. IMPRESSION: No acute intracranial findings on this noninfused CT scan of the brain. No significant change compar ed to 06/16/2020. Paranasal sinus disease again noted described above. Please note that only part of the paranasal sin uses are included in the field of view of this study. RADIATION DOSE DELIVERED: 726.06mGy.cm Total DLP DATA REPOSITORY: All CT scans at this facility are submitted to the National Radiology Data Registry (NRDR) Dose Index Registry (DIR) with the [employer] ([employer]). RADIATION OPTIMIZATION: All CT scans at this facility use at least one of these dose optimization te chniques: automated exposure control; mA and/or kV adjustment per patient size (includes targeted exa ms where dose is matched to clinical indication); or iterative reconstruction.
[2020-12-04 10:09] LABS: Abs Immature Grans 0.05 10^3/uL (0.0-0.06); Absolute Basophil Count 0.08 10^3/uL (0.0-0.2); Absolute Eosinophil Count 0.19 10^3/uL (0.0-0.7); Absolute Lymphocyte Count 1.29 10^3/uL (1.2-3.4); Absolute Monocyte Count 0.59 10^3/uL (0.1-0.8); Absolute Neutrophil Count 6.32 10^3/uL (1.2-6.7); Basophils % 0.9; Eosinophils % 2.2; HCT 46.1 % (40.0-50.0); HGB 15.5 g/dL (13.5-17.5); Immature Grans % 0.6; Lactate 2.3 mmol/L (0.6-1.4); Lymphocytes % 15.1; MCH 28.7 pg (27.0-33.0); MCHC 33.6 % (32.0-36.0); MCV 85.2 fL (80-95); MPV 9.6 fL (8.0-11.0); Monocytes % 6.9; Neutrophils % 74.3; Nucleated RBC 0 %; Platelet Count 352 10^3/uL (130-400); RBC 5.41 10^6/uL (4.36-5.78); RDW 12.9 % (11.8-14.1); RDW-SD 39.8 fL; WBC 8.52 10^3/uL (4.4-10.8)
[2020-12-04 10:30] LABS: ALT 28 U/L (16-63); AST 20 U/L (15-37); Albumin 4.3 g/dL (3.4-5.0); Alkaline Phosphatase 57 U/L (46-116); Anion Gap 11.3 mmol/L (3-11); BUN 12 mg/dL (7-18); Bilirubin, Total 0.4 mg/dL (0.2-1.0); CO2 27.7 mmol/L (21.0-32.0); Calcium 8.9 mg/dL (8.5-10.1); Chloride 104 mmol/L (98-107); Glucose 99 mg/dL (74-106); Potassium 3.4 mmol/L (3.5-5.1); Sodium 143 mmol/L (136-145); TSH (W/Ref FT4) 1.84 uIU/mL (0.36-3.74); Total Protein 8.2 g/dL (6.4-8.2); Troponin I < 0.05 ng/mL (<0.06)
--- NOTE | 2020-12-04 11:26 | DI.RAD_ITS ---
Exam(s) XR CHEST 2V PA LATERAL EXAM: XR CHEST 2V PA LATERAL CLINICAL HISTORY: dizzy, general malaise. TECHNIQUE: 2D digital imaging was performed. COMPARISON: No exams were available for comparison FINDINGS: Heart size is normal. The mediastinum is not widened. There is subtle suggestion of a 7 millimeter noncalcified nodule in the mid-lower right lung field. Possibly significant versus is breast nipple. Recommend repeating the frontal view with bilateral me tallic nipple markers in place. No other pulmonary findings nor pleural effusions. No pneumothorax. Chest leads in place. There is a moderate compression fracture midthoracic vertebral body which not evident IMPRESSION: As above. Recommend repeating the frontal view with bilateral metallic nipple markers in place. Mid level thoracic compression fracture, not previously present in 2016. DATA REPOSITORY: RADIATION DOSE DELIVERED:
--- NOTE | 2020-12-04 12:15 | DI.MRI_ITS ---
Exam(s) MR ANGIO BRAIN WO EXAM: MR ANGIO BRAIN WO CLINICAL HISTORY: vertigo, visual changes TECHNIQUE: Performed on 1.5 raphael unit with [id number] sequence. COMPARISON: CT scan earlier same date was reviewed FINDINGS: ANTERIOR CIRCULATION: Both internal carotid arteries are demonstrated be patent in the skull base-carotid canals as well as within the cavernous sinuses and the supraclinoid aspect of these vessels are also demonstrated to b e patent. Both middle cerebral arteries are patent. Also no aneurysms evident in these vessels. David th A1 segments are patent as are both anterior cerebral arteries. There is no evidence of aneurysm a t the level of the anterior communicating artery. POSTERIOR CIRCULATION: The basilar artery at the skull base is formed by both vertebral arteries and the basilar artery asce nds slightly to the left of midline with normal luminal diameter and no intraluminal thrombus nor dis section. Distally the basilar artery gives off superior cerebellar arteries which appear patent and above this level terminates as patent bilateral posterior cerebral arteries. There is a thin posterior communi cating artery on the left side of the [id number]. There is no evidence of aneurysm of the tip of the basilar artery nor elsewhere in the [id number] IMPRESSION: 1. Patent intracranial arteries. No evidence of intraluminal thrombus. 2. No aneurysm is evident. DATA REPOSITORY:
--- NOTE | 2020-12-04 12:15 | DI.MRI_ITS ---
Exam(s) MR BRAIN WO EXAM: MR BRAIN WO CLINICAL HISTORY: visual changes, vertigo TECHNIQUE: Multiplanar multisequence MRI of the brain was performed. COMPARISON: CT CT HEAD WO from 12/04/[address] HEAD WO from 12/04/2020 FINDINGS: CEREBRAL PARENCHYMA: There is no evidence of intracranial hemorrhage, mass effect, or shift of midline structures. There are no extra-axial fluid collections. Ventricles are not enlarged or shifted. There is no significant focal signal abnormality in the cerebellar hemispheres nor within the tanya, m idbrain, and thalami. There is no abnormal signal abnormality in the periventricular white matter. There is no significant focal signal abnormality evident on diffusion imaging to suggest acute ischem ic event. PITUITARY GLAND: No mass nor parasellar abnormality. No obvious abnormality in the cavernous sinuses. FLOW VOIDS: The expected flow void are noted. No evidence of obvious aneurysm nor obvious vascular ma lformation. PARANASAL SINUSES: Mucosal thickening noted in the maxillary sinuses as well as the sphenoid sinuses and frontal sinuses. Also mild mucosal thickening noted in the mastoid air cells right side. ORBITS: No obvious findings. IMPRESSION: No significant acute intracranial findings on this noninfused MRI scan of the brain. Paranasal sinus disease. DATA REPOSITORY:
--- NOTE | 2020-12-04 12:15 | DI.MRI_ITS ---
Exam(s) MR ANGIO NECK WO EXAM: MRA of the neck CLINICAL HISTORY: vertigo, visual changes. TECHNIQUE: Noninfused study performed on 1.5 raphael unit with [id number] sequence. CONTRAST MATERIAL: None COMPARISON: CT scan earlier today reviewed FINDINGS: The aortic arch and appear appears conventional. There is no obvious stenosis at the origin of the c ommon carotid arteries. Mild plaque seen at the carotid bifurcations and proximal ICAs but no eviden ce of significant stenosis at these levels and the internal carotid arteries are demonstrated to be n icely patent in the mid-upper neck and skull base. POSTERIOR CIRCULATION: Both vertebral arteries are patent in the foramen transverse area. The right is dominant. Both vert ebral arteries contribute to the formation of the basilar artery at the skull base. There is no evid ence of vertebral artery thrombosis nor vertebral artery dissection IMPRESSION: No evidence of hemodynamically significant stenosis in the visualized common carotid arteries, caroti d bulbs, and internal carotid arteries in the neck. Both vertebral arteries are patent and both contribute to the formation of the basilar artery. DATA REPOSITORY:
[2020-12-04 13:15] LABS: Bilirubin Negative (Negative); Blood Trace-lysed (Negative); Clarity Clear (Clear); Glucose Negative (Negative); Ketones Negative (Negative); Leukocyte Esterase Negative (Negative); Nitrite Negative (Negative); Urobilinogen 0.2 EU/dL (Up TO 0.2)
[2020-12-04 13:31] LABS: Bacteria Rare HPF (Negative); C & S Indicated? No; Casts Negative LPF (Negative); Crystals Negative HPF (Negative); Epithelial Cells Few HPF (Negative); Mucus Trace (Negative); WBC 0-2 HPF (0-5)
[2020-12-04 14:42] LABS: Troponin I < 0.05 ng/mL (<0.06)
[2020-12-04] MEDS: diazePAM 5 MG TAB PO (15:26)
== END 2020-12-04 16:00 | disposition home or self-care (01) ==
PROVIDERS: Emergency Provider Student in an Organized Health Care Education/Training Program; PCP Internal Medicine
DX: R42 Dizziness and giddiness (principal); R53.83 Other fatigue; R31.9 Hematuria, unspecified
CPT/HCPCS: 70544; 70547; 80053; 93005; 99285; 70450; 70551; 71046; 81003; 81015; 83605; 84443; 84484; 85025; 93010; 99284

== ENCOUNTER → 2021-03-27 09:25 | Outpatient (BNVA) | payer MEDICARE, SELFPAY | PROVIDERS: PCP Internal Medicine; Referring Provider Internal Medicine; Visit Provider Nurse Practitioner Gerontology | DX: R31.9 Hematuria, unspecified (principal); R31.0 Gross hematuria | CPT/HCPCS: 81003; 99214 ==

== ENCOUNTER 2021-03-27 14:43 | Outpatient (REF) | payer MEDICARE, OTHER, SELFPAY ==
[2021-03-27 12:42] LABS: WBC >50 HPF (0-5)
[2021-03-27 12:43] LABS: Bacteria Moderate HPF (Negative); C & S Indicated? C&S Done As Ordered; Casts Negative LPF (Negative); Crystals Few Calcium Oxalate HPF (Negative); Epithelial Cells Rare HPF (Negative); Mucus Trace (Negative)
== END 2021-03-27 14:44 | disposition home or self-care (01) ==
LOC: LBN 14:43
PROVIDERS: PCP Internal Medicine; Visit Provider Nurse Practitioner Gerontology
DX: R31.0 Gross hematuria (principal)
CPT/HCPCS: 87077; 81015; 87086; 87186

== ENCOUNTER 2021-06-04 02:54 | Outpatient (CLI) | payer MEDICARE, SELFPAY ==
[2021-06-04 22:46] LABS: PSA, Diagnostic 10.1 ng/mL (0.0-6.5)
== END 2021-06-04 02:55 | disposition home or self-care (01) ==
LOC: LBO 02:54
PROVIDERS: PCP Internal Medicine; Visit Provider Nurse Practitioner Gerontology
DX: N40.1 Benign prostatic hyperplasia with lower urinary tract symptoms (principal); R97.20 Elevated prostate specific antigen [PSA]
CPT/HCPCS: 36415; 84153

== ENCOUNTER 2021-06-05 01:21 | Outpatient (CLI) | payer MEDICARE, SELFPAY ==
--- NOTE | 2021-06-05 08:00 | DI.US_ITS ---
Exam(s) US RENAL EXAM: US RENAL CLINICAL HISTORY: left kidney concern on CT done at [facility],LT RENAL MASS,BPH,ELEVATED PSA. TECHNIQUE: Harris scale, color and spectral Doppler were used. COMPARISON: CT CT ABD/PELVIS W CONTRAST from 10/17/[address] ABD/PELVIS W CONTRAST from 10/17/2020 FINDINGS: Renal size in cm: Right: 11.8 left: 10.2 Echogenicity: Normal Hydronephrosis: No Cyst or mass: 2.7 x 1.8 x 3.2 centimeters exophytic cyst superior pole right kidney. Contour deformi ty inferior pole left kidney with a small amount of fluid, likely a postsurgical or post ablation fin ding. There is no visible mass. Nephrolithiasis: No Bladder:Normal Prevoid vol: 288 Postvoid vol:Patient unable to void Prostate: Enlarged, 65 cc IMPRESSION: Contour deformity inferior pole left kidney. No mass is visible. Further follow-up with CT could be considered for direct comparison with the previous exam. DATA REPOSITORY:
== END 2021-06-05 01:41 ==
PROVIDERS: PCP Internal Medicine; Visit Provider Nurse Practitioner Gerontology
DX: N28.89 Other specified disorders of kidney and ureter (principal); N28.1 Cyst of kidney, acquired; N40.1 Benign prostatic hyperplasia with lower urinary tract symptoms; R97.20 Elevated prostate specific antigen [PSA]
CPT/HCPCS: 76770

== ENCOUNTER → 2021-06-09 08:30 | Outpatient (BNVA) | payer MEDICARE, SELFPAY | PROVIDERS: PCP Internal Medicine; Referring Provider Internal Medicine; Visit Provider Nurse Practitioner Gerontology | DX: R31.0 Gross hematuria (principal); N40.1 Benign prostatic hyperplasia with lower urinary tract symptoms; R97.20 Elevated prostate specific antigen [PSA]; N28.89 Other specified disorders of kidney and ureter | CPT/HCPCS: 81003; 99214 ==

== ENCOUNTER 2021-08-01 10:49 | Emergency (ER) | payer MEDICARE, SELFPAY ==
[2021-08-01] VITALS (49 sets, daily range): BP systolic 118–170; BP diastolic 44–96; PULSE 70–95; RESP 11–22; TEMP 36–37.2; O2SAT 92–100
--- NOTE | 2021-08-01 10:30 | RT.EKG_ITS ---
APPROVED REPORT Exam: Resting ECG Reason for Exam: Syncope Patient Location: E HR:81 bpm ECG Measurements Heart Rate 81 AXIS WA 188 P 59 QRSd 87 QRS -36 QT 403 T 62 QTc 471 Conclusion Sinus rhythm...normal P axis, V-rate 60- 99 Multiple ventricular premature complexes...V complexes w/ short R-R intervls Inferior infarct, old...Q >35mS, II III aVF Consider anteroseptal infarct...Q >30mS, dimin R, V1-V2. Sinus. PVCs. No STEMI. I have reviewed and interpreted ECG and agree with software generated interpretation.
--- NOTE | 2021-08-01 10:58 | ED.GENADUL_ITS ---
Discharge Plan Disposition Patient Disposition: HOME Condition: Improving Discharge Details Clinical Impression: Vertigo, Acute urinary retention, History of BPH Primary Care Provider: Anil Mcwilliams ED Provider: Claudette Currie Home Meds and New Rx's Prescriptions: New ondansetron 4 mg tablet,disintegrating 4 mg PO TID PRN (Reason: nausea and vomiting) Qty: 6 RF: 0 diazepam 5 mg tablet 5 mg PO BID PRNQty: 7 RF: 0 Continued mesalamine [Lialda] 1.2 gram tablet,delayed release (DR/EC) 2.4 g PO DAILY RF: 0 venlafaxine 37.5 mg capsule,extended release 24hr 37.5 mg PO DAILY RF: 0 tamsulosin [Flomax] 0.4 mg capsule 0.4 mg PO DAILY Qty: 90 RF: 3 omeprazole 20 MG capsule,delayed release(DR/EC) 20 mg PO DAILY@0730 RF: 0 amlodipine 5 MG tablet 5 mg PO DAILY RF: 0 sildenafil 100 mg tablet 100 mg PO PRN RF: 0 losartan 25 mg tablet 25 mg PO DAILY RF: 0 aspirin [Ecotrin Low Strength] 81 MG tablet,delayed release (DR/EC) 81 mg PO DAILY RF: 0 multivitamin 1 EACH capsule 1 ea PO DAILY RF: 0 Discharge Instructions Instructions: Urinary Retention in Men (ED), Vertigo (ED), Benign Paroxysmal Positional Vertigo (ED) Additional Instructions: Your lab work, EKG and imaging is reassuring today and shows no evidence of acute concerning findings. It is suspected that your episode of dizziness today is likely related to your previous diagnosis of BPPV which is benign positional paroxysmal vertigo which is usually due to a small crystal within the bone of your ear which can become dislodged and can cause a sensation of dizziness that occurs with head movement. Drink plenty of fluids and get plenty of rest. Prescriptions for Valium which may help with dizziness and Zofran which can help with nausea or vomiting were sent electronically to your pharmacy. If you have no relief with the medication, you can repeat the Art maneuver on your own at home which was performed in the ED today and resulted in improvement of your symptoms. Follow-up with your primary care doctor in 1 week. A urinary catheter has been placed today for your urinary retention. Call Dr. Graham's office on Wednesday morning for follow-up next week with plan for likely removal of the catheter next week. Continue your Flomax as directed. Return to the emergency department with any worsening or new concerning symptoms. Referrals: Steven Graham MD [ [facility] STAFF PHYSICIAN] - Discharge Data Discharge Date/Time-TO BE ENTERED AT DEPARTURE: 08/01/21 16:27 Discharge Physician: Claudette Currie Medical Decision Making 71-year-old male with a history of BPPV, GERD, BPH, hypertension presents for dizziness since this morning. States this feels similar compared to his previous BPPV. Blood pressure hypertensive, remainder vitals within normal limits. Patient appears uncomfortable and vertigo appears reproducible with head movement. He h as horizontal nystagmus. No focal deficits. Review of records note that patient had a normal brain MRI and MRA during his ED visit in November 2020 for vertigo. Suspect most likely BPPV. Will place an IV, bolus IV fluids, meclizine, Valium, Zofran, screening labs and chest x-ray. Do not feel indication for repeat brain imaging as he has no focal deficits and presentation similar to previous vertigo 8 months ago and he has no focal deficits or meningeal signs. Labs reviewed and unremarkable for acute significant findings. Patient reassessed and he admitted to feeling better until having to sit up for x-ray. He declines further meclizine due to history of urinary retention with it. Will give additional IV fluids, IV Decadron, IV Tylenol and p.o. Valium and reassess. Patient admitted to some improvement of his dizziness after medication. Art maneuver performed at bedside and patient had complete relief of his vertigo and no further nystagmus noted. Patient was able to eat and drink and feels much better. Patient expressed concern for inability to urinate since 8 AM. He does have a history of BPH and has had Conner catheters placed several times. Bladder scan revealed 820 cc. Case discussed with Dr. Graham who recommends placing a Conner catheter which patient is agreeable with --Dr. Graham does not give 1 dose of meclizine would contribute to his retention. Plan is for patient to follow-up with Dr. Graham on Wednesday to check in with plan for likely removal of the catheter midweek Case discussed with patient's who is here to pick him up. Just prior to p lacement of Conner catheter, patient vomited. He was given a dose of Zofran. If patient has no further vomiting and feels comfortable, will plan for discharge home with Conner catheter with follow-up with Dr. Graham and his primary care doctor next week. Case d/w Dr. Whyte to follow up with pt prior to discharge if his symptoms do not improve. Otherwise, he will be discharged to home with his . Usual and customary return precautions given prior to discharge. Medical Records Medical records reviewed: Yes I reviewed the patient's medical records. Imaging Data Radiologic Study: Radiologist's impression: XR PORTABLE CHEST AP CLINICAL HISTORY: repeat exam with nipple markers TECHNIQUE: 2D digital imaging was performed of the chest. One image was obtained. An AP view was obtained. COMPARISON: CR XR PORTABLE CHEST AP from 08/01/2021 FINDINGS: MEDIASTINUM: Normal. HEART: Normal. PULMONARY VASCULATURE: Normal. LUNGS: Clear. No pulmonary nodules are identified. PLEURAL SPACE: No pleural effusion or pneumothorax. BONE:Within normal limits for the patient's age. OTHER FINDINGS:Normal. IMPRESSION: 1. No acute pulmonary findings. 2. Results of this exam have been verbally communicated with provider. Lab Data Lab results reviewed: Yes I reviewed the patient's lab results. Labs: Laboratory Tests Range/Units 08/01/21 08/01/21 10:58 10:58 WBC (4.4-10.8) 10^3/uL 8.73 RBC (4.36-5.78) 10^6/uL 5.76 Hgb (13.5-17.5) g/dL 16.6 Hct (40.0-50.0) % 50.0 MCV (80-95) fL 86.8 MCH (27.0-33.0) pg 28.8 MCHC (32.0-36.0) % 33.2 RDW (11.8-14.1) % 12.3 Plt Count (130-400) 10^3/uL 371 MPV (8.0-11.0) fL 10.2 Immature Gran % 0.5 Neutrophils % 71.4 Lymphocytes % 17.2 Monocytes % 7.2 Eosinophils % 2.9 Basophils % 0.8 Nucleated RBC % % 0 Absolute Neutrophils (1.2-6.7) 10^3/uL 6.24 Absolute Lymphocytes (1.2-3.4) 10^3/uL 1.50 Absolute Monocytes (0.1-0.8) 10^3/uL 0.63 Absolute Eosinophils (0.0-0.7) 10^3/uL 0.25 Absolute Basophils (0.0-0.2) 10^3/uL 0.07 Sodium (136-145) mmol/L 142 Potassium (3.5-5.1) mmol/L 3.8 Chloride (98-107) mmol/L 104 Carbon Dioxide (21.0-32.0) mmol/L 23.0 Anion Gap (3-11) mmol/L 15.0 H BUN (7-18) mg/dL 14 Creatinine (0.70-1.30) mg/dL 1.2 Estimated GFR/1.73 m2 (mL/min/1.73m2) 59.35 Glucose (74-106) mg/dL 128 H Calcium (8.5-10.1) mg/dL 9.5 Total Bilirubin (0.2-1.0) mg/dL 0.4 AST (15-37) U/L 27 ALT (16-63) U/L 34 Alkaline Phosphatase (46-116) U/L 77 Total Protein (6.4-8.2) g/dL 8.6 H Albumin (3.4-5.0) g/dL 4.5 ECG Data Attestation: I personally reviewed and interpreted this ECG (s) as follows: Interpretation: Rate of 81, sinus, PVCs, no acute ST elevation or depression. OK 188. QRS 87. QTc 471. HPI General Mode of arrival: EMS . Date/Time Provider Initiated Documentation: 08/01/21 11:03 . Limitations to Documentation: no limitations . Information obtained by: patient . HPI Narrative: Patient is a 71-year-old male with a history of BPPV seen in the emergency department in November 2020 for vertigo presents with dizziness this morning. Patient states he felt fine yesterday and upon awakening this morning. He states he was walking around the house when he felt that the room began spinning. Patient has not taken any medication for his symptoms this morning. He states that he began vomiting just outside the emergency department. Patient states his dizziness is worse with head movement. He denies any headache, blurry vision, chest pain, shortness of breath, abdominal pain, extremity weakness or numbness. He denies any recent illness, fever, new medications, recent surgeries, leg pain or swelling, recent travel. Related Data Home Medications Medication Instructions Recorded Confirmed omeprazole 20 mg PO DAILY@0730 02/04/13 08/01/21 amlodipine 5 mg PO DAILY 11/01/14 08/01/21 aspirin [Ecotrin Low Strength] 81 mg PO DAILY 07/01/16 08/01/21 multivitamin 1 ea PO DAILY 07/01/16 08/01/21 venlafaxine 37.5 mg 37.5 mg PO DAILY 05/16/19 08/01/21 capsule,extended release 24 hr sildenafil 100 mg PO PRN 06/16/20 08/01/21 mesalamine 1.2 gram tablet,delayed 2.4 g PO DAILY 11/11/20 08/01/21 release losartan 25 mg PO DAILY 12/04/20 08/01/21 tamsulosin 0.4 mg capsule 0.4 mg PO DAILY #90 cap 06/09/21 08/01/21 diazepam 5 mg PO BID PRN #7 tab 08/01/21 ondansetron 4 mg PO TID PRN #6 tab 08/01/21 Previous Rx's Medication Instructions Recorded tamsulosin 0.4 mg capsule 0.4 mg PO DAILY #90 cap 06/09/21 diazepam 5 mg PO BID PRN #7 tab 08/01/21 ondansetron 4 mg PO TID PRN #6 tab 08/01/21 Allergies Allergy/AdvReac Type Severity Reaction Status Date / Time oxycodone Allergy Intermediate Hives, Verified 08/01/21 11:01 Itching lisinopril AdvReac Cough Verified 08/01/21 11:01 General Stated Complaint: Dizzy/Sync WAYNE: 3 Review of Systems All systems reviewed & are unremarkable except as noted in HPI and below Constitutional Constitutional: Reports as per HPI, Denies chills and Denies fever(s) Eyes Eyes: Denies blurry vision ENT Ears, Nose, Mouth, and Throat: Reports dizziness, Denies sore throat and Denies throat swelling Cardiovascular Cardiovascular: Denies chest pain and Denies dyspnea Respiratory Respiratory: Denies cough and Denies dyspnea Gastrointestinal Gastrointestinal: Denies abdominal pain, Denies diarrhea and Reports vomiting Genitourinary Genitourinary: Denies hematuria and Denies dysuria Musculoskeletal Musculoskeletal: Denies back pain and Denies numbness Integumentary/Breasts Skin/Breast: Denies lesions and Denies rash Neurologic Neurologic: Reports dizziness, Denies localized weakness and Denies numbness Allergic/Immunologic Allergic/Immunologic: Denies throat swelling PFSH All Active Problems (Updated 08/01/21 @ 15:29 by Claudette Currie DO) Vertigo (Acute) Acute urinary retention (Acute) History of BPH (Acute) Gross hematuria (Acute) Vertigo (Acute) Fatigue (Acute) Hematuria (Acute) Trigger thumb of left hand (Acute) Gastroesophageal reflux disease (Chronic 02/04/13) Fracture of tibia with fibula, left, closed (Acute 09/19/15) BPH loc w urin obs/LUTS (Acute) Elevated PSA (Acute) Medical History Abnormal EKG BPH (benign prostatic hyperplasia) GERD (gastroesophageal reflux disease) HBP (high blood pressure) Sleep apnea Trigger thumb of left hand Surgical History Repair of inguinal hernia (08/03/17) right, direct Transurethral prostatectomy Social History Smoking/Tobacco Use Status: Former Tobacco Use Smoking risk assessment performed?: Yes Alcohol Intake: current Alcohol Intake frequency: holidays/special occasions only Drug use: Never Substance use type: does not use Do you feel safe at home: Yes Do you feel safe in your relationship?: Yes Exam Const General: cooperative, uncomfortable and no acute distress Orientation: alert, awake and oriented x3 HENMT Head: normal to inspection Ears: hearing grossly normal bilaterally, external ears normal and TM's normal bilaterally General nose exam: external nose normal Face and sinus: normal facial exam Mouth: oral mucosae normal Throat: posterior oropharynx normal Eyes General: appearance normal, both eyes and all related structures Pupils: PERRL EOM: EOM intact bilaterally Neck Neck: normal visual inspection and No submandibular swelling Lymphatic: no lymphadenopathy noted Chest Chest: normal inspection of the chest and no tenderness Resp Effort & Inspection: normal respiratory effort and able to speak in complete sentences Auscultation: clear to auscultation bilaterally Cardio Rate: regular rate Rhythm: regular rhythm GI Inspection: normal to inspection Palpation: soft, not firm, not rigid and nontender Auscultation: normal bowel sounds Skin General skin exam: no rashes or lesions noted Neuro General: patient alert, patient awake, patient oriented x3, moves all extr emities, no meningeal signs, no focal motor deficits and CN's II-XI intact bilaterally Cranial Nerves: CN's II-XI intact bilaterally and nystagmus horizontal Cognition: normal cognition Speech: speech normal Motor: muscle tone normal throughout and strength 5/5 throughout Sensory Exam: no sensory deficits noted Extrem General: normal to inspection, full ROM, capillary refill normal, no calf tenderness bilaterally and no edema Psych Appearance: grossly normal Mental Status: mental status grossly normal Speech and Movement: speech and movement normal Affect: normal affect Course Vital Signs Vital signs: Vital Signs Pulse 78 08/01/21 10:48 Respiratory Rate 16 08/01/21 10:48 Temperature Source Oral 08/01/21 10:48 Pulse 78 08/01/21 10:48 Respiratory Rate 16 08/01/21 10:48 Blood Pressure Position Supine 08/01/21 10:48 Oxygen Delivery Method Room Air 08/01/21 10:48 Oxygen Flow Rate 0 08/01/21 10:48
[2021-08-01] MEDS: Ondansetron 4 MG/2 ML VIAL IVP (11:13)
[2021-08-01 11:18] LABS: Abs Immature Grans 0.04 10^3/uL (0.0-0.06); Absolute Basophil Count 0.07 10^3/uL (0.0-0.2); Absolute Eosinophil Count 0.25 10^3/uL (0.0-0.7); Absolute Monocyte Count 0.63 10^3/uL (0.1-0.8); Absolute Neutrophil Count 6.24 10^3/uL (1.2-6.7); Basophils % 0.8; Eosinophils % 2.9; HGB 16.6 g/dL (13.5-17.5); Immature Grans % 0.5; Lymphocytes % 17.2; MCH 28.8 pg (27.0-33.0); MCHC 33.2 % (32.0-36.0); MCV 86.8 fL (80-95); MPV 10.2 fL (8.0-11.0); Monocytes % 7.2; Neutrophils % 71.4; Nucleated RBC 0 %; Platelet Count 371 10^3/uL (130-400); RBC 5.76 10^6/uL (4.36-5.78); RDW 12.3 % (11.8-14.1); RDW-SD 39.2 fL; WBC 8.73 10^3/uL (4.4-10.8)
[2021-08-01 11:30] LABS: ALT 34 U/L (16-63); AST 27 U/L (15-37); Albumin 4.5 g/dL (3.4-5.0); Alkaline Phosphatase 77 U/L (46-116); BUN 14 mg/dL (7-18); Bilirubin, Total 0.4 mg/dL (0.2-1.0); CREATININE 1.2 mg/dL (0.70-1.30); Calcium 9.5 mg/dL (8.5-10.1); Chloride 104 mmol/L (98-107); Estimated GFR 59.35 (mL/min/1.73m2); Glucose 128 mg/dL (74-106); Potassium 3.8 mmol/L (3.5-5.1); Sodium 142 mmol/L (136-145); Total Protein 8.6 g/dL (6.4-8.2)
[2021-08-01] MEDS: Normal Saline 1,000 ML 1000 ML IV (11:42)
[2021-08-01] MEDS: diazePAM 5 MG TAB PO ×2 (11:42→13:23)
[2021-08-01] MEDS: Meclizine 25 MG TAB PO (11:42)
--- NOTE | 2021-08-01 12:30 | DI.RAD_ITS ---
Exam(s) XR PORTABLE CHEST AP EXAM: XR PORTABLE CHEST AP CLINICAL HISTORY: dizziness, r/o acute disease TECHNIQUE: 2D digital imaging was performed of the chest. One image was obtained. An AP view was ob tained. COMPARISON: CR CHEST ONE VIEW IN RAD DEPT from 09/19/2015 CR XR CHEST 2V PA LATERAL from 12/04/2020 FINDINGS: There is poor inspiration and the patient is rotated. MEDIASTINUM: Normal. HEART: Normal. PULMONARY VASCULATURE: Normal. LUNGS: There is a rounded nodule at the lateral aspect of the left lung overlying the 8th rib. Its l ocation suggests a nipple shadow. The lungs are otherwise clear. PLEURAL SPACE: No pleural effusion or pneumothorax. BONE:Within normal limits for the patient's age. OTHER FINDINGS:Normal. IMPRESSION: 1. No focal consolidating infiltrates. 2. Rounded density projected over the posterior aspect of the left 8th rib laterally. This may repre sent a nipple shadow. A repeat examination may be obtained with nipple markers. DATA REPOSITORY: RADIATION DOSE DELIVERED:
[2021-08-01] MEDS: ACETAMINOPHEN 1,000 MG/100 ML BTL 400 MG IVPB (13:21)
[2021-08-01] MEDS: Dexamethasone 10 MG/ML VIAL IVP (13:21)
[2021-08-01] MEDS: Normal Saline 500 ML IV (13:22)
--- NOTE | 2021-08-01 14:00 | DI.RAD_ITS ---
Exam(s) XR PORTABLE CHEST AP EXAM: XR PORTABLE CHEST AP CLINICAL HISTORY: repeat exam with nipple markers TECHNIQUE: 2D digital imaging was performed of the chest. One image was obtained. An AP view was ob tained. COMPARISON: CR XR PORTABLE CHEST AP from 08/01/2021 FINDINGS: MEDIASTINUM: Normal. HEART: Normal. PULMONARY VASCULATURE: Normal. LUNGS: Clear. No pulmonary nodules are identified. PLEURAL SPACE: No pleural effusion or pneumothorax. BONE:Within normal limits for the patient's age. OTHER FINDINGS:Normal. IMPRESSION: 1. No acute pulmonary findings. 2. Results of this exam have been verbally communicated with provider. DATA REPOSITORY: RADIATION DOSE DELIVERED:
--- NOTE | 2021-08-01 15:36 | NUR.NOTE ---
Nursing Note: Pt info faxed to urology to be seen by next week for catheter and urinary retention. Sonam, ED
[2021-08-01] MEDS: Ondansetron 4 MG/2 ML VIAL (16:02)
== END 2021-08-01 16:27 | disposition home or self-care (01) ==
PROVIDERS: Emergency Provider Physician Assistant; PCP Internal Medicine
DX: R42 Dizziness and giddiness (principal); N40.1 Benign prostatic hyperplasia with lower urinary tract symptoms; R33.8 Other retention of urine; I10 Essential (primary) hypertension
CPT/HCPCS: 36415; 51702; 80053; 93005; 96361; 96365; 96375; 96376; 99284; 71045; 85025; 93010; J0131; J1100; J2405

== ENCOUNTER → 2021-08-05 08:09 | Outpatient (BNVA) | payer MEDICARE, SELFPAY | PROVIDERS: PCP Internal Medicine; Referring Provider Internal Medicine; Visit Provider Nurse Practitioner Gerontology | DX: R33.8 Other retention of urine (principal) | CPT/HCPCS: 99213 ==

== ENCOUNTER 2021-09-05 02:19 | Outpatient (CLI) | payer MEDICARE, SELFPAY ==
[2021-09-08 09:32] LABS: PSA, Diagnostic 7.5 ng/mL (0.0-6.5)
== END 2021-09-05 02:20 | disposition home or self-care (01) ==
LOC: LBO 02:19
PROVIDERS: PCP Internal Medicine; Visit Provider Nurse Practitioner Gerontology
DX: N40.1 Benign prostatic hyperplasia with lower urinary tract symptoms (principal); R31.0 Gross hematuria; R97.20 Elevated prostate specific antigen [PSA]
CPT/HCPCS: 36415; 84153

== ENCOUNTER → 2021-09-09 08:31 | Outpatient (BNVA) | payer MEDICARE, SELFPAY | PROVIDERS: PCP Internal Medicine; Visit Provider Nurse Practitioner Gerontology | DX: N40.1 Benign prostatic hyperplasia with lower urinary tract symptoms (principal); R97.20 Elevated prostate specific antigen [PSA]; R31.0 Gross hematuria; N28.89 Other specified disorders of kidney and ureter | CPT/HCPCS: 99214 ==

== ENCOUNTER 2021-09-15 19:46 | Outpatient (REF) | payer MEDICARE, SELFPAY ==
[2021-09-15 15:20] LABS: Vitamin B12 222 pg/mL (193-986)
== END 2021-09-15 19:47 | disposition home or self-care (01) ==
LOC: NCHCN 19:46
PROVIDERS: PCP Internal Medicine; Visit Provider Nurse Practitioner Family
DX: I10 Essential (primary) hypertension (principal); F43.23 Adjustment disorder with mixed anxiety and depressed mood; K21.9 Gastro-esophageal reflux disease without esophagitis; M54.59 Other low back pain
CPT/HCPCS: 82607; 83735

== ENCOUNTER 2022-03-03 03:23 | Outpatient (CLI) | payer MEDICARE, SELFPAY ==
[2022-03-03 19:00] LABS: PSA, Diagnostic 6.4 ng/mL (<=6.5)
== END 2022-03-03 03:24 | disposition home or self-care (01) ==
LOC: LBO 03:23
PROVIDERS: PCP Internal Medicine; Visit Provider Nurse Practitioner Gerontology
DX: R97.20 Elevated prostate specific antigen [PSA] (principal); N40.1 Benign prostatic hyperplasia with lower urinary tract symptoms
CPT/HCPCS: 36415; 84153

== ENCOUNTER → 2022-03-17 08:02 | Outpatient (BNVA) | payer MEDICARE, SELFPAY | PROVIDERS: PCP Internal Medicine; Referring Provider Internal Medicine; Visit Provider Nurse Practitioner Gerontology | DX: Z98.890 Other specified postprocedural states (principal); N40.1 Benign prostatic hyperplasia with lower urinary tract symptoms; R31.0 Gross hematuria; R97.20 Elevated prostate specific antigen [PSA]; N28.89 Other specified disorders of kidney and ureter | CPT/HCPCS: 51798; 81003; 99214 ==

== ENCOUNTER 2022-09-02 04:09 | Outpatient (CLI) | payer MEDICARE, SELFPAY ==
[2022-09-02 22:56] LABS: PSA, Diagnostic 7.9 ng/mL (<=6.5)
== END 2022-09-02 04:10 | disposition home or self-care (01) ==
LOC: LBO 04:10
PROVIDERS: PCP Internal Medicine; Visit Provider Nurse Practitioner Gerontology
DX: N40.1 Benign prostatic hyperplasia with lower urinary tract symptoms (principal); R97.20 Elevated prostate specific antigen [PSA]
CPT/HCPCS: 36415; 84153

== ENCOUNTER 2022-09-03 01:13 | Outpatient (CLI) | payer MEDICARE, SELFPAY ==
--- NOTE | 2022-09-03 07:15 | DI.US_ITS ---
Exam(s) US RENAL EXAM: US RENAL CLINICAL HISTORY: monitoring area to left renal,lt renal mass, n28.89 TECHNIQUE: Ultrasound of both kidneys performed using standard protocol. COMPARISON: CT CT ABD/PELVIS W CONTRAST from 10/17/2020 US US RENAL from 06/05/2021 FINDINGS: RIGHT KIDNEY: Measures 12 cm in length. There is a superior pole cyst which measures 3.5 x 2.6 cm. Normal cortical thickness and corticomedullary differentiation .No solid masses No intrarenal calculi nor hydronephrosis. LEFT KIDNEY: Measures 12 cm in length. There is an inferior pole partially exophytic cyst which measures 1.2 x 1. 2 cm. Normal cortical thickness and corticomedullary differentiaion. No solids masses. No intrarena l calculi nor hydonephrosis. URINARY BLADDER: Prevoid volume is 208 cc Postvoid volume is 208 cc Patient apparently not able to void upon request No evidence of bladder mass nor diverticuli. Ureterovesical jets: Both identified and appear symmetrical IMPRESSION: 1. Bilateral cysts as described above. No solid renal masses. No calculi. No hydronephrosis. 2. No obvious abnormality in the urinary bladder although the patient was apparently not able to voi d upon demand. DATA REPOSITORY:
== END 2022-09-03 01:33 ==
LOC: DI 01:13
PROVIDERS: PCP Internal Medicine; Visit Provider Nurse Practitioner Gerontology
DX: N28.89 Other specified disorders of kidney and ureter (principal); N28.1 Cyst of kidney, acquired
CPT/HCPCS: 76770

== ENCOUNTER → 2022-09-16 10:21 | Outpatient (BNVA) | payer MEDICARE, SELFPAY | PROVIDERS: PCP Internal Medicine; Visit Provider Nurse Practitioner Gerontology | DX: N40.1 Benign prostatic hyperplasia with lower urinary tract symptoms (principal); R31.0 Gross hematuria; R97.20 Elevated prostate specific antigen [PSA]; N28.89 Other specified disorders of kidney and ureter | CPT/HCPCS: 51798; 81003; 99214 ==

== ENCOUNTER 2022-10-01 12:00 | Outpatient (REF) | payer MEDICARE, SELFPAY ==
[2022-10-01 21:04] LABS: Estimated GFR 78.98 (mL/min/1.73m2)
[2022-10-01 21:07] LABS: Vitamin B12 > 2000 pg/mL (193-986)
== END 2022-10-01 12:01 | disposition home or self-care (01) ==
LOC: NCHCN 12:00
PROVIDERS: PCP Internal Medicine; Visit Provider Nurse Practitioner Family
DX: I10 Essential (primary) hypertension (principal); F41.1 Generalized anxiety disorder; F43.23 Adjustment disorder with mixed anxiety and depressed mood; R42 Dizziness and giddiness; G47.33 Obstructive sleep apnea (adult) (pediatric); M19.041 Primary osteoarthritis, right hand; M19.042 Primary osteoarthritis, left hand; K50.90 Crohn's disease, unspecified, without complications
CPT/HCPCS: 82565; 82607; 83735

== ENCOUNTER 2022-10-02 11:40 | Outpatient (REF) | payer MEDICARE, SELFPAY ==
[2022-10-02 11:14] LABS: Bilirubin Negative (Negative); Blood Negative (Negative); Clarity Clear (Clear); Glucose Negative (Negative); Ketones Negative (Negative); Leukocyte Esterase Negative (Negative); Nitrite Negative (Negative); Specific Gravity 1.025 (1.005-1.025); Urobilinogen 0.2 mg/dL (Up to 0.2); pH 5.5 (5-8)
[2022-10-02 12:01] LABS: COMMENT (LAB VIEW ONLY) 169.43 mg/dL; Microalb ug/mg Crea 17.9 ug/mg Cr
== END 2022-10-02 11:41 | disposition home or self-care (01) ==
LOC: NCHCN 11:40
PROVIDERS: PCP Internal Medicine; Visit Provider Nurse Practitioner Family
DX: R42 Dizziness and giddiness; J32.9 Chronic sinusitis, unspecified; M54.50 Low back pain, unspecified; M43.3 Recurrent atlantoaxial dislocation with myelopathy; F41.1 Generalized anxiety disorder; G47.33 Obstructive sleep apnea (adult) (pediatric); I10 Essential (primary) hypertension
CPT/HCPCS: 81003; 82043; 82570

== ENCOUNTER 2023-03-10 02:53 | Outpatient (CLI) | payer MEDICARE, SELFPAY ==
[2023-03-10 19:13] LABS: PSA, Diagnostic 7.8 ng/mL (<=6.5)
== END 2023-03-10 02:54 | disposition home or self-care (01) ==
LOC: LBO 02:53
PROVIDERS: PCP Internal Medicine; Visit Provider Nurse Practitioner Gerontology
DX: N40.1 Benign prostatic hyperplasia with lower urinary tract symptoms (principal); R97.20 Elevated prostate specific antigen [PSA]
CPT/HCPCS: 36415; 84153

== ENCOUNTER → 2023-03-17 09:54 | Outpatient (BNVA) | payer MEDICARE, SELFPAY | PROVIDERS: PCP Internal Medicine; Visit Provider Nurse Practitioner Gerontology | DX: N40.1 Benign prostatic hyperplasia with lower urinary tract symptoms (principal); R31.0 Gross hematuria; R31.9 Hematuria, unspecified; N28.89 Other specified disorders of kidney and ureter | CPT/HCPCS: 51798; 81003; 99214 ==

== ENCOUNTER 2023-04-01 09:41 | Outpatient (REF) | payer MEDICARE, SELFPAY ==
[2023-04-01 12:35] LABS: COMMENT (LAB VIEW ONLY) 219.73 mg/dL; Microalb ug/mg Crea 20.5 ug/mg Cr
== END 2023-04-01 09:42 | disposition home or self-care (01) ==
LOC: NCHCN 09:41
PROVIDERS: PCP Internal Medicine; Visit Provider Nurse Practitioner Family
DX: I10 Essential (primary) hypertension (principal); F41.8 Other specified anxiety disorders
CPT/HCPCS: 82043; 82570

== ENCOUNTER 2023-05-21 15:41 | Outpatient (REF) | payer MEDICARE, SELFPAY ==
--- OUTSIDE RECORDS SUMMARY | 2023-05-21 15:44 | XMS_ITS | Continuity of Care Document ---
Author Name Unknown Organization [facility] Address [address] [place] [address] Encounter LTTL_ID FIN NBR [id number] Date(s): 12/31/22 - 12/31/22 [facility] [address], [place] [address] Encounter Diagnosis Indeterminate colitis(Discharge Diagnosis) - 12/31/22 Discharge Disposition: Home or Self Care Attending Physician: Ortiz Daniel MD Admitting Physician: Ortiz Daniel MD Allergies, Adverse Reactions, Alerts Substance Reaction Severity Status lisinopril Cough Unknown Active losartan Dizzy Unknown Active oxyCODONE Rash Unknown Active Assessment and Plan Future Appointments Functional Status 12/31/22 Other exposure to Infectious Disease Non e 12/28/22 Living Situation Home independently ADLs Independent Medications !-Aspir 81 oral delayed release tablet 81 mg = 1 tab, Oral, Daily, # 30 tab, 0 Refill(s) Start Date: 11/02/22 Status: Ordered amLODIPine 5 mg oral tablet 5 mg = 1 tab, Oral, Daily, # 30 tab, 0 Refill(s) Start Date: 11/02/22 Status: Ordered Lialda 1.2 g oral delayed release tablet 4.8 g 4 tab, Oral, Daily, 0 Refill(s) Start Date: 11/02/22 Status: Ordered metoprolol succinate 25 mg oral capsule, extended release 25 mg = 1 cap, Oral, Daily, # 30 cap, 0 Refill(s) Start Date: 11/02/22 Status: Ordered multivitamin adult, oral tablet 1 tab, Oral, Daily, # 30 tab, 0 Refill(s) Start Date: 11/02/22 Status: Ordered omeprazole 20 mg oral delayed release tablet 20 mg = 1 tab, Oral, Daily, # 90 tab, 0 Refill(s) Start Date: 11/02/22 Status: Ordered sildenafil 100 mg oral tablet 100 mg = 1 tab, Oral, Daily, PRN as needed for erectile dysfunction, # 10 tab, 0 Refill(s) Start Date: 11/02/22 Status: Ordered tamsulosin 0.4 mg oral capsule 0.4 mg = 1 cap, Oral, Daily, # 30 cap, 0 Refill(s) Start Date: 11/02/22 Status: Ordered venlafaxine 37.5 mg oral tablet 37.5 mg = 1 tab, Oral, Daily, 0 Refill(s) Start Date: 11/02/22 Stop Date: 12/02/22 Status: Ordered Problem List Condition Confirmation Course Effective Dates Status Health St atus Informant BPH - benign prostatic hyperplasia Confirmed Active Elevated PSA Confirmed Active Erectile dysfunction Confirmed Active Laceration - injury, artery left foot Confirmed Active SHANIQUE - Obstructive sleep apnea Confirmed Active UTI - Urinary tract infection Confirmed Active Procedures Procedure Date Related Diagnosis Body Site Status Colonoscopy Biopsy 1 12/31/22 Comp leted Colonoscopy 09/23/21 Completed TURP - Transurethral resecti on of prostate 08/19/11 Completed Adenotonsillectomy Comple jaz TRUS (transrectal ultrasound ) guided cryoablation of prostate 2 Compl eted 1auto-populated from documented surgical case 2bx 07/2011 Vital Signs Most recent to oldest [Reference Range]: 1 2 3 Temperature Temporal Artery [36-38 Deg C] 36.3 Deg C (12/31/22 9:53 AM) 36.3 Deg C (12/31/22 9:51 AM) 36.5 Deg C (12/31/22 9:22 AM) Temperature Temporal Artery (DegF) [97.3-100 Deg F] 97.34 Deg F (12/31/22 9:53 AM) 97.34 Deg F (12/31/22 9:51 AM) 97.7 Deg F (12/31/22 9:22 AM) Peripheral Pulse Rate [60-100 bpm] 68 bpm (12/31/22 9:51 AM) 25 bpm *LOW* (12/31/22 9:34 AM) 63 bpm (12/31/22 9:22 AM) Heart Rate Monitored [60-100 bpm] 64 bpm (12/31/22 9:53 AM) 69 bpm (12/31/22 9:51 AM) 68 bpm (12/31/22 9:34 AM) Respiratory Rate [12-24 br/min] 18 br/min (12/31/22 7:38 AM) 18 br/min (12/31/22 7:15 AM) Blood Pressure [90-140/60-90 mmHg] 114/64mmHg (12/31/22 9:53 AM) 112/88mmHg (12/31/22 9:51 AM) 113/71mmHg (12/31/22 9:34 AM) Mean Arterial Pressure, Cuff [65-140 mmHg] 81 mmHg (12/31/22 9:53 AM) 96 mmHg (12/31/22 9:51 AM) 85 mmHg (12/31/22 9:34 AM) Mean Arterial Pressure Cuff 79 mmHg (12/31/22 9:53 AM) 96 mmHg (12/31/22 9:51 AM) 83 mmHg (12/31/22 9:34 AM) Weight 79.380 kg (12/28/22 6:20 PM) Weight Dosing 79.380 kg (12/28/22 6:20 PM) Height 182.880 cm (12/28/22 6:20 PM) Height/Length Dosing 182.880 cm (12/28/22 6:20 PM) Social History Social History Type Response Tobacco Never tobacco user T obacco Use:. Sex Hospital Discharge Instructions Patient Education 12/31/2022 08:26:41 Colon Polyps Colon Polyps Colon polyps are tissue growths inside the colon, which is part of the large intestine. They are one of the types of polyps that can grow in the body. A polyp may be a round bump or a mushroom-shapedgrowth. You could have one polyp or more than one. Most colon polyps are noncancerous (benign). However, some colon polyps can become cancerous over time. Finding and removing the polyps early can help prevent this. What are the causes? The exact cause of colon polyps is not known. What increases the risk? The following factors may make you more likely to develop this condition: ??? Having a family history of colorectal cancer or colon polyps. ??? Being older than 45 years of age. ??? Being younger than 45 years of age and having a significant family history of colorectal canceror colon polyps or a genetic condition that puts you at higher risk of getting colon polyps. ??? Having inflammatory bowel disease, such as ulcerative colitis or Crohn's disease. ??? Having certain conditions passed from parent to child (hereditary conditions), such as: ??? Familial adenomatous polyposis (FAP). ??? Kowalski syndrome. ??? Turcot syndrome. ??? Peutz???Jeghers syndrome. ??? MUTYH-associated polyposis (MAP). ??? Being overweight. ??? Certain lifestyle factors. These include smoking cigarettes, drinking too much alcohol, not getting enough exercise, and eating a diet that is high in fat and red meat and low in fiber. ??? Having had childhood cancer that was treated with radiation of the abdomen. What are the signs or symptoms? Many times, there are no symptoms. If you have symptoms, they may include: ??? Blood coming from the rectum during a bowel movement. ??? Blood in the stool (feces). The blood may be bright red or very dark in color. ??? Pain in the abdomen. ??? A change in bowel habits, such as constipation or diarrhea. How is this diagnosed? This condition is diagnosed with a colonoscopy. This is a procedure in which a lighted, flexible scope is inserted into the opening between the buttocks (anus) and then passed into the colon to examine the area. Polyps are sometimes found when a colonoscopy is done as part of routine cancer screening tests. How is this treated? This condition is treated by removing any polyps that are found. Most polyps can be removed during a colonoscopy. Those polyps will then be tested for cancer. Additional treatment may be needed depending on the results of testing. Follow these instructions at home: Eating and drinking ??? Eat foods that are high in fiber, such as fruits, vegetables, and whole grains. ??? Eat foods that are high in calcium and vitamin D, such as milk, cheese, yogurt, eggs, liver, fish, and broccoli. ??? Limit foods that are high in fat, such as fried foods and desserts. ??? Limit the amount of red meat, precooked or cured meat, or other processed meat that you eat, such as hot dogs, sausages, diez, or meat loaves. ??? Limit sugary drinks. Lifestyle ??? Maintain a healthy weight, or lose weight if recommended by your health care provider. ??? Exercise every day or as told by your health care provider. ??? Do not use any products that contain nicotine or tobacco, such as cigarettes, e-cigarettes, andchewing tobacco. If you need help quitting, ask your health care provider. ??? Do not drink alcohol if: ??? Your health care provider tells you not to drink. ??? You are , may be , or are planning to become . ??? If you drink alcohol: ??? Limit how much you use to: ??? 0???1 drink a day for women. ??? 0???2 drinks a day for men. ??? Know how much alcohol is in your drink. In the [place] one drink equals one 12 oz bottle of beer (355 mL), one 5 oz glass of wine (148 mL), or one 1?? oz glass of hard liquor (44 mL). General instructions ??? Take mihv-xjf-qmehopt and prescription medicines only as told by your health care provider. ??? Keep all follow-up visits. This is important. This includes having regularly scheduled colonoscopies. Talk to your health care provider about when you need a colonoscopy. Contact a health care provider if: ??? You have new or worsening bleeding during a bowel movement. ??? You have new or increased blood in your stool. ??? You have a change in bowel habits. ??? You lose weight for no known reason. Summary ??? Colon polyps are tissue growths inside the colon, which is part of the large intestine. They are one type of polyp that can grow in the body. ??? Most colon polyps are noncancerous (benign), but some can become cancerous over time. ??? This condition is diagnosed with a colonoscopy. ??? This condition is treated by removing any polyps that are found. Most polyps can be removed during a colonoscopy. This information is not intended to replace advice given to you by your health care provider. Make sure you discuss any questions you have with your health care provider. Document Revised: 10/30/2020 Document Reviewed: 10/30/2020 [employer] Patient Education ?? 2021 [employer]. 12/31/2022 08:26:39 Colonoscopy, Adult, Care After Colonoscopy, Adult, Care After This sheet gives you information about how to care for yourself after your procedure. Your health care provider may also give you more specific instructions. If you have problems or questions, contact your health care provider. What can I expect after the procedure? After the procedure, it is common to have: ??? A small amount of blood in your stool for 24 hours after the procedure. ??? Some gas. ??? Mild cramping or bloating of your abdomen. Follow these instructions at home: Eating and drinking ??? Drink enough fluid to keep your urine pale yellow. ??? Follow instructions from your health care provider about eating or drinking restrictions. ??? Resume your normal diet as instructed by your health care provider. Avoid heavy or fried foods that are hard to digest. Activity ??? Rest as told by your health care provider. ??? Avoid sitting for a long time without moving. Get up to take short walks every 1???2 hours. This is important to improve blood flow and breathing. Ask for help if you feel weak or unsteady. ??? Return to your normal activities as told by your health care provider. Ask your health care provider what activities are safe for you. Managing cramping and bloating ??? Try walking around when you have cramps or feel bloated. ??? Apply heat to your abdomen as told by your health care provider. Use the heat source that your health care provider recommends, such as a moist heat pack or a heating pad. ??? Place a towel between your skin and the heat source. ??? Leave the heat on for 20???30 minutes. ??? Remove the heat if your skin turns bright red. This is especially important if you are unable to feel pain, heat, or cold. You may have a greater risk of getting burned. General instructions ??? If you were given a sedative during the procedure, it can affect you for several hours. Do not drive or operate machinery until your health care provider says that it is safe. ??? For the first 24 hours after the procedure: ??? Do not sign important documents. ??? Do not drink alcohol. ??? Do your regular daily activities at a slower pace than normal. ??? Eat soft foods that are easy to digest. ??? Take awwg-nbv-zqbcvae and prescription medicines only as told by your health care provider. ??? Keep all follow-up visits as told by your health care provider. This is important. Contact a health care provider if: ??? You have blood in your stool 2???3 days after the procedure. Get help right away if you have: ??? More than a small spotting of blood in your stool. ??? Large blood clots in your stool. ??? Swelling of your abdomen. ??? Nausea or vomiting. ??? A fever. ??? Increasing pain in your abdomen that is not relieved with medicine. Summary ??? After the procedure, it is common to have a small amount of blood in your stool. You may also have mild cramping and bloating of your abdomen. ??? If you were given a sedative during the procedure, it can affect you for several hours. Do not drive or operate machinery until your health care provider says that it is safe. ??? Get help right away if you have a lot of blood in your stool, nausea or vomiting, a fever, or increased pain in your abdomen. This information is not intended to replace advice given to you by your health care provider. Make sure you discuss any questions you have with your health care provider. Document Revised: 07/05/2020 Document Reviewed: 02/05/2020 [employer] Patient Education ?? 2021 [employer]. 12/31/2022 08:26:36 Colitis Colitis Colitis is a condition in which the colon is inflamed. It can cause diarrhea, blood in the stool, and abdominal pain. Colitis can last a short time (be acute), or it may last a long time (become chronic). What are the causes? This condition may be caused by: ??? Infections from viruses or bacteria. ??? A reaction to medicine. ??? Certain autoimmune diseases, such as Crohn's disease or ulcerative colitis. ??? Radiation treatment. ??? Decreased blood flow to the bowel (ischemia). What are the signs or symptoms? Symptoms of this condition include: ??? Diarrhea, blood in the stool, or black, tarry stool. ??? Pain in the joints or abdominal pain. ??? Fever or fatigue. ??? Vomiting. ??? Weight loss. ??? Bloating. ??? Having fewer bowel movements than usual. ??? A strong and sudden urge to have a bowel movement. ??? Feeling like the bowel is not empty after a bowel movement. How is this diagnosed? This condition may be diagnosed based on a stool test and a blood test. You may also have other tests, such as: ??? X-rays. ??? CT scan. ??? Colonoscopy. ??? Endoscopy. ??? Biopsy. How is this treated? Treatment for this condition depends on the cause. This condition may be treated with: ??? Steps to rest the bowel, such as not eating or drinking for a period of time. ??? Fluids that are given through an IV. ??? Medicine for pain and diarrhea. ??? Antibiotic medicines. ??? Cortisone medicines. ??? Surgery. Follow these instructions at home: Eating and drinking ??? Follow instructions from your health care provider about eating or drinking restrictions. ??? Drink enough fluid to keep your urine pale yellow. ??? Work with a dietitian to determine whether certain foods cause your condition to flare up. ??? Avoid foods or drinks that cause flare-ups. ??? Eat a well-balanced diet. General instructions ??? If you were prescribed an antibiotic medicine, take it as told by your health care provider. Donot stop taking the antibiotic even if you start to feel better. ??? Take xziz-ibu-mhadewh and prescription medicines only as told by your health care provider. ??? Keep all follow-up visits. This is important. Contact a health care provider if: ??? Your symptoms do not go away. ??? You develop new symptoms. Get help right away if: ??? You have a fever that does not go away with treatment. ??? You develop chills. ??? You have extreme weakness, fainting, or dehydration. ??? You vomit repeatedly. ??? You develop severe pain in your abdomen. ??? You pass bloody or tarry stool. Summary ??? Colitis is a condition in which the colon is inflamed. Colitis can last a short time (be acute), or it may last a long time (become chronic). ??? Treatment for this condition depends on the cause and may include resting the bowel, taking medicines, or having surgery. ??? If you were prescribed an antibiotic medicine, take it as told by your health care provider. Donot stop taking the antibiotic even if you start to feel better. ??? Get help right away if you develop severe pain in your abdomen. ??? Keep all follow-up visits. This is important. This information is not intended to replace advice given to you by your health care provider. Make sure you discuss any questions you have with your health care provider. Document Revised: 03/18/2021 Document Reviewed: 03/18/2021 [employer] Patient Education ?? 2021 [employer]. Discharge instructions * Donya Allred: PERFORM Event Display: Discharge Instructions Authored Date: [id number] DINORAH JOE Genevieve :1950 Age:72 years Sex:Male Visit Date:12/31/2022 Hospital Discharge Instructions We would like to thank you for allowing us to assist you with your healthcare needs. The following includes patient education materials and information regarding your injury/illness. Your Next Steps Discharge Orders Discharge Patient Instructions, You may experience some gas cramps and abdominal bloating Discharge Patient Instructions, Cramping and abdominal bloating should subside in 1 hour or so Discharge Patient Instructions, Passing gas rectally and belching is normal Discharge Patient Instructions, A light first meal may feel better in your stomach Discharge Patient Instructions, You may resume your normal activity in 24 hours Discharge Patient Instructions, It is important that a responsible adult drive you home today Discharge Patient Instructions, Do not sign any contracts, make any major decisions, or drive or operate machinery for 24 hours Discharge Patient Instructions, You should not be responsible for the care of others Discharge Patient Instructions, Avoid alcohol, tranquilizers, sleeping pills, or cold medicines for24 hours Discharge Patient Instructions, Call or come to emergency department if having unusual pain or severe abdominal pain Discharge Patient Instructions, Call or come to emergency department if vomiting blood or having black bowel movements, rectal bleeding or passing blood clots Discharge Patient Instructions, Call or come to emergency department for dizziness Discharge Patient Instructions, Call or come to emergency department chest pain, or shortness of breath Discharge Patient Instructions, Call or come to emergency department for fever greater than 100 ??F Discharge Patient Instructions, Call with any additional questions or concerns Scheduled Future Appointments Wednesday 9:00 AM EDT ?? Medications What How Much When Instructions Next Dose Unchanged amLODIPine (amLODIPine 5 mg oral tablet) 1 tab Oral (given by mouth) Every day Unchanged aspirin (!-Aspir 81 oral delayed release tablet) 1 tab Oral (given by mouth) Every day Unchanged mesalamine (Lialda 1.2 g oral delayed release tablet) 4 tab Oral (given by mouth) Every day Unchanged metoprolol (metoprolol succinate 25 mg oral capsule, extended release) 1 Capsules Oral (given by mouth) Every day Unchanged multivitamin (multivitamin adult, oral tablet) 1 tab Oral (given by mouth) Every day Unchanged omeprazole (omeprazole 20 mg oral delayed release tablet) 1 tab Oral (given by mouth) Every day Unchanged sildenafil (sildenafil 100 mg oral tablet) 1 tab Oral (given by mouth) Every day as needed for as needed for erectile dysfunction Unchanged tamsulosin (tamsulosin 0.4 mg oral capsule) 1 Capsules Oral (given by mouth) Every day Unchanged venlafaxine (venlafaxine 37.5 mg oral tablet) 1 tab Oral (given by mouth) Every day Duration: 30 Days Your Summary Your Care Team Admitting Physician - Ortiz Daniel MD Attending Physician - Ortiz Daniel MD Your Diagnosis Indeterminate colitis Problems Ongoing - Any problem that you are currently receiving treatment for. BPH - benign prostatic hyperplasia Elevated PSA Erectile dysfunction Laceration - injury, artery left foot SHANIQUE - Obstructive sleep apnea UTI - Urinary tract infection Procedures Performed ???Colonoscopy Biopsy (12/31/2022) Discharge Vitals Temperature??(Temporal Artery) 97.7 ??F (36.5 ??C) Heart Rate??(Peripheral) 25 Heart Rate??(Monitored) 68 Respiratory Rate?? 18 Blood Pressure?? 113/71?? Allergies lisinopril??(Cough) losartan??(Dizzy) oxyCODONE??(Rash) Education Materials Colon Polyps Colon polyps are tissue growths inside the colon, which is part of the large intestine. They are one of the types of polyps that can grow in the body. A polyp may be a round bump or a mushroom-shapedgrowth. You could have one polyp or more than one. Most colon polyps are noncancerous (benign). However, some colon polyps can become cancerous over time. Finding and removing the polyps early can help prevent this. What are the causes? The exact cause of colon polyps is not known. What increases the risk? The following factors may make you more likely to develop this condition: ? Having a family history of colorectal cancer or colon polyps. ? Being older than 45 years of age. ? Being younger than 45 years of age and having a significant family history of colorectal cancer or colon polyps or a genetic condition that puts you at higher risk of getting colon polyps. ? Having inflammatory bowel disease, such as ulcerative colitis or Crohn's disease. ? Having certain conditions passed from parent to child (hereditary conditions), such as: ? Familial adenomatous polyposis (FAP). ? Kowalski syndrome. ? Turcot syndrome. ? Peutz???Jeghers syndrome. ? MUTYH-associated polyposis (MAP). ? Being overweight. ? Certain lifestyle factors. These include smoking cigarettes, drinking too much alcohol, not gettingenough exercise, and eating a diet that is high in fat and red meat and low in fiber. ? Having had childhood cancer that was treated with radiation of the abdomen. What are the signs or symptoms? Many times, there are no symptoms. If you have symptoms, they may include: ? Blood coming from the rectum during a bowel movement. ? Blood in the stool (feces). The blood may be bright red or very dark in color. ? Pain in the abdomen. ? A change in bowel habits, such as constipation or diarrhea. How is this diagnosed? This condition is diagnosed with a colonoscopy. This is a procedure in which a lighted, flexible scope is inserted into the opening between the buttocks (anus) and then passed into the colon to examine the area. Polyps are sometimes found when a colonoscopy is done as part of routine cancer screening tests. How is this treated? This condition is treated by removing any polyps that are found. Most polyps can be removed during a colonoscopy. Those polyps will then be tested for cancer. Additional treatment may be needed depending on the results of testing. Follow these instructions at home: Eating and drinking ? Eat foods that are high in fiber, such as fruits, vegetables, and whole grains. ? Eat foods that are high in calcium and vitamin D, such as milk, cheese, yogurt, eggs, liver, fish, and broccoli. ? Limit foods that are high in fat, such as fried foods and desserts. ? Limit the amount of red meat, precooked or cured meat, or other processed meat that you eat, such as hot dogs, sausages, diez, or meat loaves. ? Limit sugary drinks. Lifestyle ? Maintain a healthy weight, or lose weight if recommended by your health care provider. ? Exercise every day or as told by your health care provider. ? Do not use any products that contain nicotine or tobacco, such as cigarettes, e- cigarettes, and chewing tobacco. If you need help quitting, ask your health care provider. ? Do not drink alcohol if: ? Your health care provider tells you not to drink. ? You are , may be , or are planning to become . ? If you drink alcohol: ? Limit how much you use to: ? 0???1 drink a day for women. ? 0???2 drinks a day for men. ? Know how much alcohol is in your drink. In the [place] one drink equals one 12 oz bottle of beer (355mL), one 5 oz glass of wine (148 mL), or one 1?? oz glass of hard liquor (44 mL). General instructions ? Take tiot-tka-tlvbcti and prescription medicines only as told by your health care provider. ? Keep all follow-up visits. This is important. This includes having regularly scheduled colonoscopies. Talk to your health care provider about when you need a colonoscopy. Contact a health care provider if: ? You have new or worsening bleeding during a bowel movement. ? You have new or increased blood in your stool. ? You have a change in bowel habits. ? You lose weight for no known reason. Summary ? Colon polyps are tissue growths inside the colon, which is part of the large intestine. They are one type of polyp that can grow in the body. ? Most colon polyps are noncancerous (benign), but some can become cancerous over time. ? This condition is diagnosed with a colonoscopy. ? This condition is treated by removing any polyps that are found. Most polyps can be removed during a colonoscopy. This information is not intended to replace advice given to you by your health care provider. Make sure you discuss any questions you have with your health care provider. Document Revised: 10/30/2020 Document Reviewed: 10/30/2020 [employer] Patient Education ?? 2021 [employer]. Colonoscopy, Adult, Care After This sheet gives you information about how to care for yourself after your procedure. Your health care provider may also give you more specific instructions. If you have problems or questions, contact your health care provider. What can I expect after the procedure? After the procedure, it is common to have: ? A small amount of blood in your stool for 24 hours after the procedure. ? Some gas. ? Mild cramping or bloating of your abdomen. Follow these instructions at home: Eating and drinking ? Drink enough fluid to keep your urine pale yellow. ? Follow instructions from your health care provider about eating or drinking restrictions. ? Resume your normal diet as instructed by your health care provider. Avoid heavy or fried foods thatare hard to digest. Activity ? Rest as told by your health care provider. ? Avoid sitting for a long time without moving. Get up to take short walks every 1???2 hours. This isimportant to improve blood flow and breathing. Ask for help if you feel weak or unsteady. ? Return to your normal activities as told by your health care provider. Ask your health care provider what activities are safe for you. Managing cramping and bloating ? Try walking around when you have cramps or feel bloated. ? Apply heat to your abdomen as told by your health care provider. Use the heat source that your health care provider recommends, such as a moist heat pack or a heating pad. ? Place a towel between your skin and the heat source. ? Leave the heat on for 20???30 minutes. ? Remove the heat if your skin turns bright red. This is especially important if you are unable to feel pain, heat, or cold. You may have a greater risk of getting burned. General instructions ? If you were given a sedative during the procedure, it can affect you for several hours. Do not drive or operate machinery until your health care provider says that it is safe. ? For the first 24 hours after the procedure: ? Do not sign important documents. ? Do not drink alcohol. ? Do your regular daily activities at a slower pace than normal. ? Eat soft foods that are easy to digest. ? Take oqgk-aul-zeyaafc and prescription medicines only as told by your health care provider. ? Keep all follow-up visits as told by your health care provider. This is important. Contact a health care provider if: ? You have blood in your stool 2???3 days after the procedure. Get help right away if you have: ? More than a small spotting of blood in your stool. ? Large blood clots in your stool. ? Swelling of your abdomen. ? Nausea or vomiting. ? A fever. ? Increasing pain in your abdomen that is not relieved with medicine. Summary ? After the procedure, it is common to have a small amount of blood in your stool. You may also have mild cramping and bloating of your abdomen. ? If you were given a sedative during the procedure, it can affect you for several hours. Do not drive or operate machinery until your health care provider says that it is safe. ? Get help right away if you have a lot of blood in your stool, nausea or vomiting, a fever, or increased pain in your abdomen. This information is not intended to replace advice given to you by your health care provider. Make sure you discuss any questions you have with your health care provider. Document Revised: 07/05/2020 Document Reviewed: 02/05/2020 [employer] Patient Education ?? 2021 [employer] Colitis Colitis is a condition in which the colon is inflamed. It can cause diarrhea, blood in the stool, and abdominal pain. Colitis can last a short time (be acute), or it may last a long time (become chronic). What are the causes? This condition may be caused by: ? Infections from viruses or bacteria. ? A reaction to medicine. ? Certain autoimmune diseases, such as Crohn's disease or ulcerative colitis. ? Radiation treatment. ? Decreased blood flow to the bowel (ischemia). What are the signs or symptoms? Symptoms of this condition include: ? Diarrhea, blood in the stool, or black, tarry stool. ? Pain in the joints or abdominal pain. ? Fever or fatigue. ? Vomiting. ? Weight loss. ? Bloating. ? Having fewer bowel movements than usual. ? A strong and sudden urge to have a bowel movement. ? Feeling like the bowel is not empty after a bowel movement. How is this diagnosed? This condition may be diagnosed based on a stool test and a blood test. You may also have other tests, such as: ? X-rays. ? CT scan. ? Colonoscopy. ? Endoscopy. ? Biopsy. How is this treated? Treatment for this condition depends on the cause. This condition may be treated with: ? Steps to rest the bowel, such as not eating or drinking for a period of time. ? Fluids that are given through an IV. ? Medicine for pain and diarrhea. ? Antibiotic medicines. ? Cortisone medicines. ? Surgery. Follow these instructions at home: Eating and drinking ? Follow instructions from your health care provider about eating or drinking restrictions. ? Drink enough fluid to keep your urine pale yellow. ? Work with a dietitian to determine whether certain foods cause your condition to flare up. ? Avoid foods or drinks that cause flare-ups. ? Eat a well-balanced diet. General instructions ? If you were prescribed an antibiotic medicine, take it as told by your health care provider. Do notstop taking the antibiotic even if you start to feel better. ? Take czyk-khx-olhiltu and prescription medicines only as told by your health care provider. ? Keep all follow-up visits. This is important. Contact a health care provider if: ? Your symptoms do not go away. ? You develop new symptoms. Get help right away if: ? You have a fever that does not go away with treatment. ? You develop chills. ? You have extreme weakness, fainting, or dehydration. ? You vomit repeatedly. ? You develop severe pain in your abdomen. ? You pass bloody or tarry stool. Summary ? Colitis is a condition in which the colon is inflamed. Colitis can last a short time (be acute), diego may last a long time (become chronic). ? Treatment for this condition depends on the cause and may include resting the bowel, taking medicines, or having surgery. ? If you were prescribed an antibiotic medicine, take it as told by your health care provider. Do notstop taking the antibiotic even if you start to feel better. ? Get help right away if you develop severe pain in your abdomen. ? Keep all follow-up visits. This is important. This information is not intended to replace advice given to you by your health care provider. Make sure you discuss any questions you have with your health care provider. Document Revised: 03/18/2021 Document Reviewed: 03/18/2021 [employer] Patient Education ?? 2021 [employer] Patient Name:DINORAH JOE I have received this information and my questions have been answered. 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 The following includes patient education materials and information regarding your injury/illness. Your Next Steps Discharge Orders Discharge Patient Instructions, You may experience some gas cramps and abdominal bloating Discharge Patient Instructions, Cramping and abdominal bloating should subside in 1 hour or so Discharge Patient Instructions, Passing gas rectally and belching is normal Discharge Patient Instructions, A light first meal may feel better in your stomach Discharge Patient Instructions, You may resume your normal activity in 24 hours Discharge Patient Instructions, It is important that a responsible adult drive you home today Discharge Patient Instructions, Do not sign any contracts, make any major decisions, or drive or operate machinery for 24 hours Discharge Patient Instructions, You should not be responsible for the care of others Discharge Patient Instructions, Avoid alcohol, tranquilizers, sleeping pills, or cold medicines for24 hours Discharge Patient Instructions, Call or come to emergency department if having unusual pain or severe abdominal pain Discharge Patient Instructions, Call or come to emergency department if vomiting blood or having black bowel movements, rectal bleeding or passing blood clots Discharge Patient Instructions, Call or come to emergency department for dizziness Discharge Patient Instructions, Call or come to emergency department chest pain, or shortness of breath Discharge Patient Instructions, Call or come to emergency department for fever greater than 100 ??F Discharge Patient Instructions, Call with any additional questions or concerns Scheduled Future Appointments Wednesday 9:00 AM EDT ?? Medications What How Much When Instructions Next Dose Unchanged amLODIPine (amLODIPine 5 mg oral tablet) 1 tab Oral (given by mouth) Every day Unchanged aspirin (!-Aspir 81 oral delayed release tablet) 1 tab Oral (given by mouth) Every day Unchanged mesalamine (Lialda 1.2 g oral delayed release tablet) 4 tab Oral (given by mouth) Every day Unchanged metoprolol (metoprolol succinate 25 mg oral capsule, extended release) 1 Capsules Oral (given by mouth) Every day Unchanged multivitamin (multivitamin adult, oral tablet) 1 tab Oral (given by mouth) Every day Unchanged omeprazole (omeprazole 20 mg oral delayed release tablet) 1 tab Oral (given by mouth) Every day Unchanged sildenafil (sildenafil 100 mg oral tablet) 1 tab Oral (given by mouth) Every day as needed for as needed for erectile dysfunction Unchanged tamsulosin (tamsulosin 0.4 mg oral capsule) 1 Capsules Oral (given by mouth) Every day Unchanged venlafaxine (venlafaxine 37.5 mg oral tablet) 1 tab Oral (given by mouth) Every day Duration: 30 Days Your Summary Your Care Team Admitting Physician - Ortiz Daniel MD Attending Physician - Fredy COLORADO, Ortiz Your Diagnosis Indeterminate colitis Problems Ongoing - Any problem that you are currently receiving treatment for. BPH - benign prostatic hyperplasia Elevated PSA Erectile dysfunction Laceration - injury, artery left foot SHANIQUE - Obstructive sleep apnea UTI - Urinary tract infection Discharge Vitals Temperature??(Temporal Artery) 98.1 ??F (36.7 ??C) Heart Rate??(Peripheral) 71 Respiratory Rate?? 18 Blood Pressure?? 150/86?? Allergies lisinopril??(Cough) losartan??(Dizzy) oxyCODONE??(Rash) Patient Name:DINORAH JOE I have received this information and my questions have been answered. 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 Disease for over 15 years. Physical Exam Vitals & Measurements T:??36.7?C ??(Temporal Artery)?? HR:??71??(Peripheral)?? RR:??18?? BP:??150/86?? SpO2:??99%?? O2 Therapy:??Room air?? 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 Orders: Normal Saline Flush, 10 mL, IV Flush, Soln, As Directed, PRN lineman a class, First Dose: :56:00 EDT, Routine Sodium Chloride 0.9% 1,000 mL, Total Volume (mL): 1,000, 1,000 mL, Soln-IV, IV, 50 mL/hr, Start Date: 12/31/22 6:56:00 EDT, 79.38 kg, Populate Charting Weight From Order, 2.01, m2 Blood Glucose Monitoring POC RE, 12/31/22 6:56:00 EDT, Stop date 12/31/22 6:56:00 EDT NPO, 12/31/22 6:56:00 EDT, Constant Indicator Obtain consent, 12/31/22 6:56:00 EDT, Constant Order, 12/31/22 6:56:00 EDT Peripheral IV Insertion, 12/31/22 6:56:00 EDT Saline Lock Convert From IV, 12/31/22 6:56:00 EDT, Stop date 12/31/22 6:56:00 EDT Vital Signs, 12/31/22 6:56:00 EDT, Stop date 12/31/22 6:56:00 EDT, Routine Problem List/Past Medical History Ongoing BPH - benign prostatic hyperplasia Elevated PSA Erectile dysfunction Laceration - injury, artery left foot SHANIQUE - Obstructive sleep apnea UTI - Urinary tract infection Historical No qualifying data Procedure/Surgical History ???Colonoscopy (09/24/2021)???TURP - Transurethral resection of prostate (08/20/2011)???Adenotonsillectomy???TRUS (transrectal ultrasound) guided cryoablation of prostate Medications Inpatient Normal Saline Flush, 10 mL, IV Flush, As Directed, PRN Sodium Chloride 0.9% 1,000 mL, 1000 mL, IV Home !-Aspir 81 oral delayed release tablet, 81 mg= 1 tab, Oral, Daily amLODIPine 5 mg oral tablet, 5 mg= 1 tab, Oral, Daily Lialda 1.2 g oral delayed release tablet, 4.8 g= 4 tab, Oral, Daily metoprolol succinate 25 mg oral capsule, extended release, 25 mg= 1 cap, Oral, Daily multivitamin adult, oral tablet, 1 tab, Oral, Daily omeprazole 20 mg oral delayed release tablet, 20 mg= 1 tab, Oral, Daily sildenafil 100 mg oral tablet, 100 mg= 1 tab, Oral, Daily, PRN tamsulosin 0.4 mg oral capsule, 0.4 mg= 1 cap, Oral, Daily venlafaxine 37.5 mg oral tablet, 37.5 mg= 1 tab, Oral, Daily Allergies lisinopril??(Cough) losartan??(Dizzy) oxyCODONE??(Rash) Social History Alcohol Current, 1-2 times per month Electronic Cigarette/Vaping Electronic Cigarette Use: Never. Substance Use Never Tobacco Never tobacco user Tobacco Use:. Family History Alcohol abuse: Father. Heart disease: Mother. Family Member(s): ?? FATHER, at age: Unknown. Cause of : Family Member(s): ?? MOTHER, at age: Unknown. Cause of : Electronically Signed on 12/31/22 08:18 AM Ortiz Daniel MD Patient Care team information Care Team Related Persons Name: IDALIA JOE
--- OUTSIDE RECORDS SUMMARY | 2023-05-21 15:44 | XMS_ITS | Continuity of Care Document ---
Author Name Unknown Organization [facility] Address [address] [place] [address] Care Team Providers Care Graduate Internship Name Role Phone Unavailable, Physician Primary Care Physician Un available Encounter [facility] NBR [id number] Date(s): 11/03/22 - 11/03/22 [facility] [address] [place] [address]- Encounter Diagnosis Indeterminate colitis(Discharge Diagnosis) - 11/03/22 Discharge Disposition: Home or Self Care Attending Physician: Ortiz Daniel MD Allergies, Adverse Reactions, Alerts Substance Reaction Severity Status lisinopril Cough Unknown Active losartan Unknown Active oxyCODONE Rash Unknown Active Assessment and Plan Future Appointments Functional Status 11/03/22 Other exposure to Infectious Disease Non e Medications !-Aspir 81 oral delayed release tablet 81 mg = 1 tab, Oral, Daily, # 30 tab, 0 Refill(s) Start Date: 11/02/22 Status: Ordered amLODIPine 5 mg oral tablet 5 mg = 1 tab, Oral, Daily, # 30 tab, 0 Refill(s) Start Date: 11/02/22 Status: Ordered Lialda 1.2 g oral delayed release tablet 0 Refill(s) Start Date: 11/02/22 Status: Ordered [...] BPH - benign prostatic hyperplasia Confirmed Active Crohns disease Confirmed Active Elevated PSA Confirmed Active Erectile dysfunction Confirmed Active Laceration - injury Confirmed Active UTI - Urinary tract infection Confirmed Active Procedures Procedure Date Related Diagnosis Body Site Status Colonoscopy 09/23/21 Completed TURP - Transurethral resecti on of prostate 08/19/11 Completed Adenotonsillectomy Comple jaz TRUS (transrectal ultrasound ) guided cryoablation of prostate 1 Compl eted 1bx 07/2011 Vital Signs Most recent to oldest [Reference Range]: 1 Temperature Temporal Artery [36-38 Deg C ] 35.9 Deg C *LOW* (11/03/22 11:28 AM) Apical Heart Rate [60-100 bpm] 89 bpm (11/03/22 11:28 AM) Blood Pressure [90-140/60-90 mmHg] 138/7 0mmHg (11/03/22 11:28 AM) Weight 83.6 kg (11/03/22 11:28 AM) Weight Measured (lbs) 184.306 lb (11/03/22 11:28 AM) [place] Body Weight Calculated 77.6 kg (11/03/22 11:28 AM) Height 182.88 cm (11/03/22 11:28 AM) Height/Length Measured (inches) 72 inch (11/03/22 11:28 AM) BSA Measured 2.06 m2 (11/03/22 11:28 AM) Body Mass Index 25 kg/m2 (11/03/22 11:28 AM) Social History Social History Type Response Tobacco Never tobacco user T obacco Use:. Sex Physician Outpatient Note * Ortiz Daniel MD: PERFORM Event Display: Office Clinic Note Physician Authored Date: [id number] DINORAH JOE :1950 Age:72 years Sex:Male Visit Date:11/03/2022 Primary Care Physician: Unavailable, Physician Chief Complaint Follow-up indeterminate colitis History of Present Illness 72-year-old male??with indeterminate colitis.?? Patient was diagnosed with??Crohns ??disease??approximately??16 years ago at [facility].?? He has been treated in the past??for flares which have recurred only 2-3 times since diagnosis??and has been??able to be controlled with??mesalamine.?? Patient was lost to GI follow-up??for several years??until he experienced??diarrhea in 2020??and was treated witha??prednisone taper with??resolution.?? On 09/10/2020??calprotectin was 599.?? Flexible sigmoidoscopy on 10/11/2020??showed severe inflammatory changes with luminal narrowing.?? At that time he had cont inuous moderate chronic active colitis from the rectum to the splenic flexure without dysplasia.?? He was again started on prednisone taper??and Lialda 4.8 g daily.?? CRP was normal at that time.?? ET scan for further staging on 10/17/2020 revealed a normal terminal ileum with inflammatory changes noted??in the area of the sigmoid colon.?? Colonoscopy on 09/24/2021??revealed 2 aphthous ulcers in the terminal ileum??and mild gross inflammation in the sigmoid??as well as multiple pseudopolyps.?? Remainder of the colon and rectum are grossly normal.?? Segmental biopsies??were performed.?? Terminal ileum was normal as were the cecum a sending transverse and descending colon.?? In the sigmoid colonminimally active chronic colitis was noted??in the rectal biopsies showed quiescent colitis.?? Sigmoid polyp was??an inflammatory polyp.?? At that time the patient was on Lialda 2.4 g daily??having??self reduced his??Lialda.?? Since he was not in endoscopic remission??he was advised to increase Lialda back to 4.8 g daily??although??he was essentially asymptomatic??on 2.4 g.?? He has received complete Twinrix series??completed on 03/03/2022 which was his last visit.?? He reports daily bowel movements 2-3, without blood, diarrhea, or pain.?? No extraintestinal complaints. Physical Exam Vitals & Measurements T:??35.9?C ??(Temporal Artery)?? HR:??89??(Apical)?? BP:??138/70?? SpO2:??97%?? HT:??182.88??cm?? WT:??83.6??kg?? BMI:??25?? BSA:??2.06?? 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 It is likely that??the patient has??left- sided ulcerative colitis.?? Since he has??had inflammatory bowel disease for over 15 years,??and??had??active endoscopic disease??on 10/17/2020,??will repeat colonoscopy??for screen for dysplasia as well as??to restage.?? He appears to be in clinical remission at this time.?? The exact dose of mesalamine is unclear??since??his formulary has changed.?He will bring his pill bottle with him??when he comes in for colonoscopy. ??We will obtain routine labs??as well as??hepatitis B surface antibody,??hepatitis A total antibody??when he returns for??colonoscopy??on??December 31.?? Return to clinic in 6 months. Ordered: Surgical Procedure Booking Request [facility]TT[facility], 11/03/22 11:47:00 EDT, 12/31/22 10:00:00 EDT, [facility] Endoscopy, ulcerative colitis, Indeterminate colitis, Outpatient, Colonoscopy, Primary Procedure, 30, MAC, [address], [place], [id number], [id number], [id number] ?? Voice recognition software utilized which may result in minor sales representative rural power errors. Problem List/Past Medical History Ongoing BPH - benign prostatic hyperplasia Crohns disease Elevated PSA Erectile dysfunction Laceration - injury UTI - Urinary tract infection Historical No qualifying data Procedure/Surgical History ???Colonoscopy (09/24/2021)???TURP - Transurethral resection of prostate (08/20/2011)???Adenotonsillectomy???TRUS (transrectal ultrasound) guided cryoablation of prostate Medications !-Aspir 81 oral delayed release tablet, 81 mg= 1 tab, Oral, Daily amLODIPine 5 mg oral tablet, 5 mg= 1 tab, Oral, Daily Lialda 1.2 g oral delayed release tablet metoprolol succinate 25 mg oral capsule, extended [...] mg= 1 tab, Oral, Daily Allergies lisinopril??(Cough) losartan oxyCODONE??(Rash) Social History Alcohol Current, 1-2 times per month Electronic Cigarette/Vaping Electronic Cigarette Use: Never. Substance Use Never Tobacco Never tobacco user Tobacco Use:. Family History Alcohol abuse: Father. Heart disease: Mother. Family Member(s): ?? FATHER, at age: Unknown. Cause of : Family Member(s): ?? MOTHER, at age: Unknown. Cause of : Electronically Signed on 11/03/22 11:50 AM Ortiz Daniel MD Patient Care team information Care Team Personnel Name: Unavailable, Physician Position: No Access Member Role: Primary Care Physician
--- OUTSIDE RECORDS SUMMARY | 2023-05-21 15:44 | XMS_ITS | Continuity of Care Document ---
Author Name Unknown Organization [facility] Address [address] [place] [address] Care Team Providers Care Control Room Tender Name Role Phone Anil Mcwilliams Og Primary Care Physician [phone] [facility]counter [facility] Date(s): 03/15/23 - 03/15/[address] [address] Encounter Diagnosis Benign neoplasm of sigmoid colon(Final) - Discharge Disposition: Home or Self Care Attending Physician: Dex Suresh MD Admitting Physician: Dex Suresh MD Referring Physician: Dex Suresh MD Allergies, Adverse Reactions, Alerts Substance Reaction Severity Status lisinopril Unknown Active losartan Dizzy Mild Active oxyCODONE Anaphylactic reaction Unknown Active Assessment and Plan Future Appointments Diagnostic Tests Pending * Surgical Pathology [facility] 03/15/23 Functional Status 03/15/23 ADLs Independent Recent Travel History No recent travel Immunizations Given and Recorded Vaccine Date Status Refusal Reason pneumococcal 13-valent conjugate vaccine 05/14/16 Recorded zoster vaccine live 08/04/12 Recorded tetanus/diphth/pertuss (Tdap) adult/adol 11/28/07 Recorded Medications [facility] 90 EA, TAKE ONE TABLET BY MOUTH EVERY DAY, 0 Refill(s) Start Date: 01/21/23 Status: Ordered amLODIPine 10 mg oral tablet 10 mg = 1 tab, Oral, Daily, # 30 tab, 0 Refill(s) Start Date: 06/22/22 Status: Ordered aspirin 81 mg oral capsule 81 mg = 1 cap, Oral, Daily, do not exceed 48 capsules in 24 hours, # 30 cap, 0 Refill(s) Start Date: 06/22/22 Status: Ordered Lialda 1.2 g oral delayed release tablet 2.4 g 2 tab, Oral, Daily, # 112 tab, 0 Refill(s) Start Date: 01/21/23 Status: Ordered metoprolol succinate Daily, 0 Refill(s) Start Date: 03/15/23 Status: Ordered omeprazole 20 mg oral delayed release capsule 20 mg = 1 cap, Oral, Daily, # 90 cap, 0 Refill(s) Start Date: 06/22/22 Status: Ordered OXcarbazepine 300 mg oral tablet, extended release 300 mg = 1 tab, Oral, Daily, # 30 tab, 0 Refill(s) Start Date: 06/22/22 Status: Ordered sildenafil 100 mg oral tablet 100 mg = 1 tab, Oral, Daily, 1 hour before sexual activity, # 5 tab, 0 Refill(s) Start Date: 06/22/22 Status: Ordered tamsulosin 0.4 mg oral capsule 0.4 mg = 1 cap, Oral, Daily, # 30 cap, 0 Refill(s) Start Date: 06/22/22 Status: Ordered venlafaxine 75 mg oral capsule, extended release 75 mg = 1 cap, Oral, Daily, # 30 cap, 0 Refill(s) Start Date: 06/22/22 Status: Ordered Problem List Condition Confirmation Course Effective Dates Status Health St atus Informant Abnormal leg movement Confirmed Active Cardiac arrhythmia Confirmed Active Acute Crohn's disease Confirmed Active Impotence Confirmed Active Hypertensive disorder Confirmed Active Prostate enlargement Confirmed Active Obstructive sleep apnea, adult 1, 2 Confirmed Active 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 He has been using APAP 7-10 cm even though it was supposed to be set at10-16 cm. His AHI is still above goal at 15.6/hr and he is maxing out his pressure so today I set it to 9-14 cm (he actually did not have the cord so he will bring the machine back tomorrow so I can change the setting). I will want to see a one month compliance. He will try to get his CPAP connected back to [employer] so we can get the data. He had some difficulty with aerophagia in the past with a nasal mask (he now uses FFM) so we will need to keep an eye on this. He is directed to [facility] for a mask liner. He has a [employer] machine and was advised not to use it. He is encouraged to keep up with the routine maintenance of the machine and to clean and replace parts as indicated. He is encouraged to use [facility]HS. He was made aware of the recall and advised to register his machine with [employer] (he has done this). I explained the exact risks of continuing to use the machine are unknown at this time and the decision to continue is up to him. He is reminded there are potential risks of not using CPAP as well.\ ADDENDUM 07/24/21: compliance with AHI 13.9/hr, mean pressure 11.6 cm, order in to set CPAP to 11-16 cm and check one months compliance. I provided greater than 30 minutes in the care of this patient, more than half the time was spent in fzje-cs-[id number] counseling. 2CPAP 11-16 cm Raysa 3From 12-21-2017 visit: PLMi 83.2/hr, PLMai 2.3/hr during recent titration study. He denies any RLS symptoms and is not aware of any leg movements in sleep. He feels he sleeps soundly. Not likely clinically significant but will continue to monitor. Procedures Procedure Date Related Diagnosis Body Site Status Vasectomy 07/25/81 Completed Colonoscopy 1 Completed Extraction of wisdom tooth Completed Surgery 2 Completed Surgery 3 Completed Tonsillectomy Completed 1in Fredi 2Repair of Lt. Artery in Foot 3Repair of LT. Tib/Fib Fx Vital Signs Most recent to oldest [Reference Range]: 1 2 3 Temperature Temporal Artery [36-38 Deg C] 36 Deg C (03/15/23 8:34 AM) 36.1 Deg C (03/15/23 7:07 AM) Temperature Temporal Artery (DegF) [97.3-100 Deg F] 96.8 Deg F *LOW* (03/15/23 8:34 AM) Peripheral Pulse Rate [60-100 bpm] 68 bpm (03/15/23 9:12 AM) 62 bpm (03/15/23 9:00 AM) 63 bpm (03/15/23 8:45 AM) Heart Rate Monitored [60-100 bpm] 71 bpm (03/15/23 9:12 AM) 63 bpm (03/15/23 9:00 AM) 63 bpm (03/15/23 8:45 AM) Respiratory Rate [12-24 br/min] 15 br/min (03/15/23 9:12 AM) 14 br/min (03/15/23 9:00 AM) 15 br/min (03/15/23 8:45 AM) Blood Pressure [90-140/60-90 mmHg] 120/56mmHg (03/15/23 9:00 AM) 115/62mmHg (03/15/23 8:45 AM) 100/54mmHg (03/15/23 8:40 AM) Mean Arterial Pressure, Cuff [65-140 mmHg] 77 mmHg (03/15/23 9:00 AM) 80 mmHg (03/15/23 8:45 AM) 69 mmHg (03/15/23 8:40 AM) Mean Arterial Pressure Cuff 101 mmHg (03/15/23 7:07 AM) Blood Pressure Location Left arm (03/15/23 7:07 AM) Weight 85.3 kg (03/15/23 7:07 AM) Weight Estimated 84.8 kg (03/05/23 2:21 PM) Height 183 cm (03/15/23 7:07 AM) Body Mass Index Estimated 25.35 kg/m2 (03/05/23 2:21 PM) Height/Length Estimated 182.88 cm (03/05/23 2:21 PM) Social History Social History Type Response Tobacco Former tobacco user Tobacco Use:. 1 Sex Male 1quit 40+ years ago, smoked for 5-6 years Hospital Discharge Instructions Patient Education 03/15/2023 07:50:44 Colon Polyps Colon Polyps Colon polyps are [...] liquor (44 mL). General instructions ??? Take [id number]-[id number]-[id number] and prescription medicines only as told by [...] provider. Document Revised: 10/30/2020 Document Reviewed: 10/30/2020 [employer] Patient Education ?? 2022 [employer]. Discharge instructions * Windy Garcia RN: PERFORM Event Display: Discharge Instructions Authored Date: [id number] DINORAH JOE :1950 Age:72 years Sex:Male Visit Date:03/15/2023 Primary Care Physician: Anil Mcwilliams MD Hospital Discharge Instructions We would like to thank you for allowing us to assist you with your healthcare needs. The following includes patient education materials and information regarding your injury/illness. Your Next Steps Discharge Orders Discharge Patient Instructions, Rest today. Resume diet and activities as tolerated. Scheduled Future Appointments Wednesday 11:30 AM EST ?? With: Afshan Soto STATOR TESTER Where: [address] [address] Status: Confirmed Medications What How Much When Instructions Next Dose Unchanged amLODIPine (amLODIPine 10 mg oral tablet) 1 tab Oral (given by mouth) Every day Unchanged aspirin (aspirin 81 mg oral capsule) 1 Capsules Oral (given by mouth) Every day do not exceed 48 capsules in 24 hours ?? Unchanged mesalamine (Lialda 1.2 g oral delayed release tablet) 2 tab Oral (given by mouth) Every day Unchanged metoprolol (metoprolol succinate) Every day Unchanged omeprazole (omeprazole 20 mg oral delayed release capsule) 1 Capsules Oral (given by mouth) Every day Unchanged Other Prescription ([facility] Prescription) 90 EA, TAKE ONE TABLET BY MOUTH EVERY DAY ?? Unchanged OXcarbazepine (OXcarbazepine 300 mg oral tablet, extended release) 1 tab Oral (given by mouth) Every day Unchanged sildenafil (sildenafil 100 mg oral tablet) 1 tab Oral (given by mouth) Every day 1 hour before sexual activity ?? Unchanged tamsulosin (tamsulosin 0.4 mg oral capsule) 1 Capsules Oral (given by mouth) Every day Unchanged venlafaxine (venlafaxine 75 mg oral capsule, extended release) 1 Capsules Oral (given by mouth) Every day Your Summary Your Care Team Admitting Physician - Dex Suresh MD Attending Physician - Dex Suresh MD Primary Care Physician - Anil Mcwilliams MD Referring Physician - Dex Suresh MD Problems Ongoing - Any problem that you are currently receiving treatment for. Abnormal leg movement Acute Crohn's disease Cardiac arrhythmia Colon polyps Hypertensive disorder Impotence Obstructive sleep apnea, adult Periodic leg movements of sleep Prostate enlargement Sigmoid polyp Procedures Performed ???Colonoscopy???Surgery???Surgery Tests Performed/Pending Surgical Pathology [facility]?-- Results Pending -- Discharge Vitals Temperature??(Temporal Artery) 96.8 ??F (36 ??C) Heart Rate??(Peripheral) 63 Heart Rate??(Monitored) 63 Respiratory Rate?? 12 Blood Pressure?? 100/54?? Blood Pressure?? 157/84(Sitting)?? Height?? 72.05 in (183 cm) Weight?? 188.09 lb (85.3 kg) Allergies losartan??(Dizzy) lisinopril oxyCODONE??(Anaphylactic reaction) Education Materials Colon Polyps Colon polyps are [...] liquor (44 mL). General instructions ? Take qpgq-ckv-bbobcno and prescription medicines only as told by [...] provider. Document Revised: 10/30/2020 Document Reviewed: 10/30/2020 [employer] Patient Education ?? 2022 [employer] Dialog. Patient/Data Warehousing Manager Signature Patient Name:DINORAH JOE I have received this information and my questions have been answered. Patient/Data Warehousing Manager Name: Patient/Data Warehousing Manager Signature: Relationship to Patient: Witness Name/Signature: Date: Electronically Signed on: 03/15/2023 08:52 EDTSigned by:MS History and physical note * Dex Suresh MD: PERFORM Event Display: History and Physical Authored Date: [id number] DINORAH JOE :1950 Age:72 years Sex:Male Visit Date:03/15/2023 Primary Care Physician: Anil Mcwilliams MD H&P??reviewed from 02/16/2023, pt examined,??no significant changes to medical history. Proceed as planned.? Dex Suresh MD 03/15/2023 ?? Electronically Signed on 03/15/23 07:59 AM Dex Suresh MD * Yamilex Russell: PERFORM Event Display: History and Physical Authored Date: [id number] JOE, DINORAH :1950 Age:72 years Sex:Male Primary Care Physician: Anil Mcwilliams MD Patient was seen in the office on 02/16/2023 Electronically Signed on 02/22/23 07:28 AM Yamilex Russell Patient Care team information Care Team Personnel Name: Anil Mcwilliams MD Position: No Access Member Role: Informed Provider Address: Address: [address] [place] [id number] Care Team Related Persons Name: LUIS F BAKER Address: [address] [id number] Address: [address] [phone] Name: HILARIO JOE Address: Home [address] [facility], [id number]
[2023-05-21 21:14] LABS: Anion Gap 8.7 mmol/L (3-11); BUN 15 mg/dL (7-18); CO2 28.3 mmol/L (21.0-32.0); CREATININE 1.1 mg/dL (0.70-1.30); Calcium 9.2 mg/dL (8.5-10.1); Chloride 107 mmol/L (98-107); Estimated GFR 70.01 (mL/min/1.73m2); Glucose 109 mg/dL (74-106); Sodium 144 mmol/L (136-145)
== END 2023-05-21 15:42 | disposition home or self-care (01) ==
LOC: NCHCN 15:41
PROVIDERS: PCP Internal Medicine; Visit Provider Nurse Practitioner Family
DX: J32.9 Chronic sinusitis, unspecified (principal); K51.90 Ulcerative colitis, unspecified, without complications; I10 Essential (primary) hypertension; F41.8 Other specified anxiety disorders; N40.0 Benign prostatic hyperplasia without lower urinary tract symptoms
CPT/HCPCS: 80048

== ENCOUNTER 2023-09-08 03:46 | Outpatient (CLI) | payer MEDICARE, SELFPAY ==
--- OUTSIDE RECORDS SUMMARY | 2023-09-08 03:47 | XMS_ITS | Continuity of Care Document ---
Author Name Unknown Organization [facility] Address [address] [place] [address] Encounter [facility] [facility] NBR [id number] Date(s): 06/15/23 - 06/15/23 [facility] [address] [place] [address]- Encounter Diagnosis Indeterminate colitis(Discharge Diagnosis) - 06/15/23 Indeterminate colitis(Final) - Discharge Disposition: Home or Self Care Attending Physician: Ortiz Daniel MD Admitting Physician: Ortiz Daniel MD Allergies, Adverse Reactions, Alerts Substance Reaction Severity Status lisinopril Cough Unknown Active losartan Dizzy Unknown Active oxyCODONE Rash Unknown Active Assessment and Plan Future Appointments Diagnostic Tests Pending * Hepatitis B Surf Ab Quant LC 06/15/23 * Hep A Ab, Total LC 06/15/23 Medications !-Aspir 81 oral delayed release tablet [...] 0 Refill(s) Start Date: 11/02/22 Status: Ordered valsartan 40 mg oral tablet 0 Refill(s) Start Date: 06/15/23 Status: Ordered venlafaxine 37.5 mg oral tablet 37.5 mg = 1 tab, Oral, Daily, 0 Refill(s) Start Date: 11/02/22 Stop Date: 12/02/22 Status: Ordered Problem List Condition Confirmation Course Effective Dates Status H ealth Status Informant BPH - benign prostatic hyperplasia Confirmed Active Colonic polyp Confirmed Active Elevated PSA Confirmed Active Erectile dysfunction Confirmed Active Indeterminate colitis Confirmed Active Laceration - injury, artery left [...] 1auto-populated from documented surgical case 2bx 07/2011 Results Laboratory List Name Date CBC w/ Diff 06/15/23 Comprehensive Metabolic Panel (CMP) 05/27 08/17 Automated Diff 06/15/23 Most recent to oldest [Reference Range]: 1 WBC [4.8-10.8 K/mcL] 6.8 K/mcL (06/15/23 10:59 AM) RBC [4.70-6.10 Million/mcL] 5.25 Million /mcL (06/15/23 10:59 AM) Neutro Auto [42.2-75.2 %] 68.3 % (06/15/23 10:59 AM) Lymph Auto [20.5-51.1 %] 21.7 % (06/15/23 10:59 AM) Sharp Auto [1.7-9.3 %] 6.6 % (06/15/23 10:59 AM) Basophil Auto [0.0-0.8 %] 0.9 % *HI* (06/15/23 10:59 AM) BUN [8-26 mg/dL] 19 mg/dL (06/15/23 10:59 AM) Glucose Level [74-106 mg/dL] 93 mg/dL (06/15/23 10:59 AM) Potassium Level [3.5-5.1 mmol/L] 3.7 mmo l/L (06/15/23 10:59 AM) Baso Absolute [0.0-0.2 K/mcL] 0.1 K/mcL (06/15/23 10:59 AM) MCV [80.0-94.0 fL] 85.5 fL (06/15/23 10:59 AM) AST [15-41 IntlUnit/L] 24 IntlUnit/L (06/15/23 10:59 AM) ALT [17-63 IntlUnit/L] 22 IntlUnit/L (06/15/23 10:59 AM) MCHC [32.0-37.0 g/dL] 34.1 g/dL (06/15/23 10:59 AM) Osmolality [275-295 mOsm/kg] 279 mOsm/kg (06/15/23 10:59 AM) Sodium Level [134-143 mmol/L] 139 mmol/L (06/15/23 10:59 AM) Lymph Absolute [1.2-3.4 K/mcL] 1.5 K/mcL (06/15/23 10:59 AM) Hct [42.0-52.0 %] 44.9 % (06/15/23 10:59 AM) Calcium Level [8.9-10.3 mg/dL] 9.2 mg/dL (06/15/23 10:59 AM) Sharp Absolute [0.1-0.6 K/mcL] 0.4 K/mcL (06/15/23 10:59 AM) Albumin Level [3.5-5.0 g/dL] 4.3 g/dL (06/15/23 10:59 AM) Protein Total [6.5-8.1 g/dL] 7.4 g/dL (06/15/23 10:59 AM) MCH [27.0-31.0 pg] 29.1 pg (06/15/23 10:59 AM) Neutro Absolute [1.4-6.5 K/mcL] 4.7 K/mc L (06/15/23 10:59 AM) Bilirubin Total [0.2-1.2 mg/dL] 0.9 mg/d L (06/15/23 10:59 AM) Hgb [14.0-18.0 g/dL] 15.3 g/dL (06/15/23 10:59 AM) Alk Phos [38-130 IntlUnit/L] 46 IntlUnit /L (06/15/23 10:59 AM) MPV [7.4-10.4 fL] 10.2 fL (06/15/23 10:59 AM) Platelets [130-400 K/mcL] 271 K/mcL (06/15/23 10:59 AM) CO2 [22-32 mmol/L] 26 mmol/L (06/15/23 10:59 AM) Eos Absolute [0.0-0.2 K/mcL] 0.1 K/mcL (06/15/23 10:59 AM) Chloride Level [98-111 mmol/L] 106 mmol/ L (06/15/23 10:59 AM) RDW-CV [11.5-14.5 %] 12.6 % (06/15/23 10:59 AM) A/G Ratio [1.0-2.5 g/dL] 1.4 g/dL (06/15/23 10:59 AM) BUN/Creat Ratio [8.0-20.0] 17.8 (06/15/23 10:59 AM) Globulin [2.3-3.5 g/dL] 3.1 g/dL (06/15/23 10:59 AM) Imm Gran Absolute [0.00-0.02 K/mcL] 0.03 K/mcL *HI* (06/15/23 10:59 AM) Imm Gran Auto [0.0-0.5 %] 0.4 % (06/15/23 10:59 AM) Creatinine Level [0.61-1.24 mg/dL] 1.07 mg/dL (06/15/23 10:59 AM) Anion Gap [3.0-12.0] 7.0 (06/15/23 10:59 AM) Eos, Auto [0.00-3.00 %] 2.10 % (06/15/23 10:59 AM) eGFR CKD-EPI [>=60 mL/min/1.73 m2] 72 mL /min/1.73 m2 (06/15/23 10:59 AM) Social History Social History Type Response Tobacco Never tobacco user T obacco Use:. Sex Patient Care team information Care Team Related Persons Name: IDALIA JOE
[2023-09-08 19:07] LABS: PSA, Diagnostic 5.7 ng/mL (<=6.5)
== END 2023-09-08 03:47 | disposition home or self-care (01) ==
LOC: LBO 03:46
PROVIDERS: PCP Internal Medicine; Visit Provider Nurse Practitioner Gerontology
DX: N40.1 Benign prostatic hyperplasia with lower urinary tract symptoms (principal); R97.20 Elevated prostate specific antigen [PSA]
CPT/HCPCS: 36415; 84153

== ENCOUNTER → 2023-09-09 03:31 | Outpatient (CLI) | payer MEDICARE, SELFPAY ==
--- NOTE | 2023-09-09 06:45 | DI.US_ITS ---
Exam(s) US RENAL EXAM: US RENAL CLINICAL HISTORY: monitoring renal cyst/mass,N28.1. TECHNIQUE: Harris scale, color and spectral Doppler were used. COMPARISON: CT CT ABD/PELVIS W CONTRAST from 10/17/2020 US US RENAL from 06/05/2021 US US RENAL from 09/03/2022 FINDINGS: Renal size in cm: Right: Left: Echogenicity: Normal Hydronephrosis: No Cyst or mass: 3.0 x 1.9 x 2.8 centimeter cyst the superior of the right kidney. Previous cystic area at lower pole of left kidney was not demonstrated on today's exam. Nephrolithiasis: No Bladder:Normal. Prevoid vol:29 cc Postvoid vol: Cc Prostate enlarged and presses on the base of the bladder. Volume 69 mL. IMPRESSION: Stable appearance of right renal cyst. DATA REPOSITORY:
== END ==
PROVIDERS: PCP Internal Medicine; Visit Provider Nurse Practitioner Gerontology
DX: N28.1 Cyst of kidney, acquired (principal)
CPT/HCPCS: 76770

== ENCOUNTER → 2023-09-15 09:57 | Outpatient (BNVA) | payer MEDICARE, SELFPAY | PROVIDERS: PCP Internal Medicine; Referring Provider Internal Medicine; Visit Provider Nurse Practitioner Gerontology | DX: N40.1 Benign prostatic hyperplasia with lower urinary tract symptoms (principal); N28.89 Other specified disorders of kidney and ureter; R97.20 Elevated prostate specific antigen [PSA] | CPT/HCPCS: 99213 ==

== ENCOUNTER 2023-11-01 06:13 | Emergency (ER) | payer MEDICARE, SELFPAY ==
[2023-11-01] VITALS (40 sets, daily range): BP systolic 145–171; BP diastolic 75–100; PULSE 64–91; RESP 9–30; TEMP 36.4; O2SAT 84–99
--- NOTE | 2023-11-01 06:00 | RT.EKG_ITS ---
APPROVED REPORT Exam: Resting ECG Reason for Exam: dizziness Patient Location: E HR:67 bpm ECG Measurements Heart Rate 67 AXIS PA 198 P 51 QRSd 81 QRS -24 QT 415 T 40 QTc 437 Conclusion Sinus rhythm...normal P axis, V-rate 60- 99 Inferior infarct, old...Q >35mS, II III aVF Consider anteroseptal infarct...Q >30mS, dimin R, V1-V2 appropriate intervals no st segment or t wave abnormalities to suggest occlusive mi
--- NOTE | 2023-11-01 06:38 | ED.GENADUL_ITS ---
Discharge Plan Discharge Details Chief Complaint: Dizzy/Sync Primary Care Provider: Gaviota Brock ED Provider: Michelle Wolf Home Meds and New Rx's Prescriptions: No Action mesalamine [Lialda] 1.2 gram tablet,delayed release (DR/EC) 2.4 g PO DAILY valsartan 40 mg tablet 40 mg PO DAILY venlafaxine 37.5 mg capsule,extended release 24hr 37.5 mg PO DAILY metoprolol succinate 25 mg tablet extended release 24 hr 25 mg PO DAILY tamsulosin [Flomax] 0.4 mg capsule 0.4 mg PO DAILY Qty: 90 3RF omeprazole 20 MG capsule,delayed release(DR/EC) 20 mg PO DAILY@0730 amlodipine 5 MG tablet 10 mg PO DAILY sildenafil 100 mg tablet 100 mg PO PRN meclizine [Antivert] 50 mg tablet 50 mg PO DAILY PRN aspirin [Ecotrin Low Strength] 81 MG tablet,delayed release (DR/EC) 81 mg PO DAILY multivitamin 1 EACH capsule 1 ea PO DAILY HPI General Mode of arrival: EMS . Date/Time Provider Initiated Documentation: 11/01/23 06:21 . Limitations to Documentation: no limitations . Information obtained by: patient, EMS and old records reviewed . HPI Narrative: 73yo M with hx HTN, GERD, BPH, BPPV, presenting via EMS for veritgo. Awoke this morning with severe vertigo, worse with moving his head. Mild nausea, no vomiting. No numbness, tingling, weakness, diplopia, vision changes, hearing changes. Took meclizine at home and then called EMS. Symptoms are improving, now has no vertigo when his head is still, does still have some when he moves his head quickly. Otherwise in his usual state of health with no fevers, chills, rash, chest pain, shortness of breath, lightheadedness/pre-syncope, or other concerns. Related Data Home Medications Medication Instructions Recorded Confirmed omeprazole 20 mg capsule,delayed 20 mg PO DAILY@0730 02/04/13 11/01/23 release amlodipine 5 mg tablet 10 mg PO DAILY 11/01/14 11/01/23 aspirin 81 mg tablet,delayed 81 mg PO DAILY 07/01/16 11/01/23 release (Ecotrin Low Strength) multivitamin 1 ea PO DAILY 07/01/16 11/01/23 venlafaxine 37.5 mg 37.5 mg PO DAILY 05/16/19 11/01/23 capsule,extended release 24 hr sildenafil 100 mg tablet 100 mg PO PRN 06/16/20 11/01/23 mesalamine 1.2 gram tablet,delayed 2.4 g PO DAILY 11/11/20 11/01/23 release (Lialda) metoprolol succinate 25 mg 25 mg PO DAILY 03/17/23 11/01/23 tablet,extended release 24 hr tamsulosin 0.4 mg capsule (Flomax) 0.4 mg PO DAILY urinary retention 08/30/23 11/01/23 #90 caps valsartan 40 mg tablet 40 mg PO DAILY 09/15/23 11/01/23 meclizine 50 mg tablet (Antivert) 50 mg PO DAILY PRN 11/01/23 11/01/23 Previous Rx's Medication Instructions Recorded tamsulosin 0.4 mg capsule (Flomax) 0.4 mg PO DAILY urinary retention 08/30/23 #90 caps Allergies Allergy/AdvReac Type Severity Reaction Status Date / Time oxycodone Allergy Intermediate Hives, Verified 11/01/23 06:14 Itching lisinopril AdvReac Cough Verified 11/01/23 06:14 General Stated Complaint: Dizzy/Sync WAYNE: 3 Review of Systems Narrative: see HPI Exam Narrative Exam Narrative: General: Alert, well appearing, well nourished, in no acute distress. Head: Normocephalic, atraumatic Neck: Trachea midline, ?Neck supple. ENT: ?MMM.? No oropharygeal lesions or exudate. Cardiac: ?RRR, no murmurs appreciated Resp: No respiratory distress. CTAB. Abd: ?Soft, non-distended, nontender : ?No suprapubic tenderness. No CVA tenderness. Extremities: ?No deformities.? No peripheral edema. Neuro: ? GCS 15.? PERRL.? EOMI.? Fluent speech, no dysarthria. Motor- 5/5 strength symmetric bilateral upper and lower extremities including shoulder abductors/adductors, elbow flexors/extensors, wrist flexors/extensors, finger abductors/adductors, hipflexors/extensors, knee flexors/extensors, ankle dorsiflexors and planter flexors. Sensation- ?Intact to light touch and symmetric multiple dermatomes including upper and lower extremities Coordination- No dysmetria on finger to nose or heel/so bilaterally. Gait/station: ?Normal stance.? No truncal ataxia. Steady gait with equal normal steps CRANIAL NERVES: II: Pupils equal and reactive, III, IV, : EOM intact, no gaze preference or deviation, no nystagmus. V: normal sensation in V1, V2, and V3 segments bilaterally VII: no asymmetry, no nasolabial fold flattening VIII: normal hearing to speech IX, X: normal palatal elevation, no uvular deviation XI: 5/5 head turn and 5/5 shoulder shrug bilaterally XII: midline tongue protrusion Course Vital Signs Vital signs: Vital Signs Temperature 36.4 C L 11/01/23 06:08 Pulse 66 11/01/23 06:08 Respiratory Rate 23 11/01/23 06:08 Blood Pressure 166/85 H 11/01/23 06:08 Pulse Oximetry 99 11/01/23 06:08 Temperature 36.4 C L 11/01/23 06:08 Temperature Source Temporal Artery Scan 11/01/23 06:08 Pulse 66 11/01/23 06:08 Respiratory Rate 23 11/01/23 06:17 Respiratory Effort Normal, Non-Labored 11/01/23 06:17 Respiratory Depth Normal 11/01/23 06:17 Respiratory Pattern Normal 11/01/23 06:17 Blood Pressure 166/85 H 11/01/23 06:08 Blood Pressure Position Supine 11/01/23 06:08 Pulse Oximetry 99 11/01/23 06:08 Oxygen Delivery Method Room Air 11/01/23 06:08 Oxygen Flow Rate 0 11/01/23 06:08 Pain Level 0 11/01/23 06:08 Medical Decision Making 73yo M with hx HTN, GERD, BPH, BPPV, presenting via EMS for veritgo. Awoke this morning with severe vertigo, worse with moving his head. Took meclizine at home and then called EMS. Symptoms are improving, now has no vertigo when his head is still, does still have some when he moves his head quickly. States this feels identical to his prior episodes of vertigo. Hypertensive on arrival, vital signs otherwise reassuring. Benign physical exam. No neurologic deficits on exam including no dysmetria. Most likely peripheral vertigo and symptoms are improving. Ambulated to bathroom steadily. Would not call stroke alert or consider tPA. Given age, does warrant further evaluate for life threatening causes or central vertigo with labs and CTA (did have reassuring MRI in 2020 after prior episode). EKG SR, appropriate intervals, no ST segment or T wave abnormalities to suggest occlusive MA. No chest pain/SOB/lightheadedness to suggest cardiac etiologies; would not further pursue acute coronary syndromes. Signed out to oncoming physician, plan to followup labs at CT scan. If reassuring and continues to improve clinically, would discharge home. Quality:SDME Health Related Social Needs: No Data to Display PFSH All Active Problems (Updated 09/01/21 @ 00:04 by DEYSI ADAMS) Gross hematuria (Acute) Vertigo (Acute) Fatigue (Acute) Hematuria (Acute) Trigger thumb of left hand (Acute) Gastroesophageal reflux disease (Chronic 02/04/13) Fracture of tibia with fibula, left, closed (Acute 09/19/15) BPH loc w urin obs/LUTS (Acute) Elevated PSA (Acute) Medical History Abnormal EKG BPH (benign prostatic hyperplasia) GERD (gastroesophageal reflux disease) HBP (high blood pressure) Sleep apnea Trigger thumb of left hand Surgical History Transurethral prostatectomy Repair of inguinal hernia (08/03/17) right, direct Social History Smoking/Tobacco Use Status: Former Tobacco Use Smoking risk assessment performed?: Yes Alcohol Intake: current Alcohol Intake frequency: holidays/special occasions only Alcohol type: beer Drug use: Never Substance use type: does not use Housing: house Do you feel safe at home: Yes Do you feel safe in your relationship?: Yes PAWSS Have you Been Recently Intoxicated or Drunk Within the Last 30 days?: No Have you Ever Experienced Previous Episodes of Alcohol Withdrawal?: No Have you ever Experienced Withdrawal Seizures?: No Have you ever Experienced Delirium Tremens(DT)s?: No Have you ever undergone Alcohol Rehabilitation Treatment (i.e, inpt ot outpatient treatment programs)?: No Have you ever Experienced Blackouts?: No Have you ever Combined Alcohol with other Downers within the last 90 days?: No Have you ever Combined Alcohol with any other Substance of Abuse during the last 90 days?: No Positive Blood Alcohol level on Presentation? [PCS.BAL]: No Evidence of Increased Autonomic Activity (i.e. HR>120, tremor, sweating, agitation, nausea)?: No Result: 0
[2023-11-01 06:46] LABS: Abs Immature Grans 0.02 10^3/uL (0.0-0.06); Absolute Basophil Count 0.08 10^3/uL (0.0-0.2); Absolute Eosinophil Count 0.26 10^3/uL (0.0-0.7); Absolute Lymphocyte Count 1.45 10^3/uL (1.2-3.4); Absolute Monocyte Count 0.46 10^3/uL (0.1-0.8); Absolute Neutrophil Count 4.28 10^3/uL (1.2-6.7); Basophils % 1.2; HCT 42.5 % (40.0-50.0); HGB 14.8 g/dL (13.5-17.5); Immature Grans % 0.3; Lymphocytes % 22.1; MCH 29.1 pg (27.0-33.0); MCHC 34.8 % (32.0-36.0); MCV 84 fL (80-95); MPV 10.5 fL (8.0-11.0); Neutrophils % 65.4; Platelet Count 280 10^3/uL (130-400); RBC 5.08 10^6/uL (4.36-5.78); RDW 12.2 % (11.8-14.1); RDW-SD 36.8 fL; WBC 6.55 10^3/uL (4.4-10.8)
[2023-11-01 07:13] LABS: ALT 34 U/L (16-63); AST 24 U/L (15-37); Albumin 3.9 g/dL (3.4-5.0); Alkaline Phosphatase 61 U/L (46-116); Anion Gap 8.6 mmol/L (3-11); BUN 18 mg/dL (7-18); Bilirubin, Total 0.6 mg/dL (0.2-1.0); CO2 27.4 mmol/L (21.0-32.0); CREATININE 1.1 mg/dL (0.70-1.30); Calcium 9.1 mg/dL (8.5-10.1); Chloride 106 mmol/L (98-107); Estimated GFR 70.01 (mL/min/1.73m2); Glucose 111 mg/dL (74-106); Potassium 3.7 mmol/L (3.5-5.1); Sodium 142 mmol/L (136-145); Total Protein 7.6 g/dL (6.4-8.2)
[2023-11-01] MEDS: Omnipaque 350 MG/ML 100 ML BTL IJ (07:24)
[2023-11-01] MEDS: Normal Saline - Diluent 50 ML VIAL IJ (07:25)
--- NOTE | 2023-11-01 07:30 | DI.MRI_ITS ---
Exam(s) MR BRAIN WO EXAM: MR BRAIN WO CLINICAL HISTORY: dizzy TECHNIQUE: Multiplanar multisequence MRI of the brain was performed. COMPARISON: MR MR BRAIN WO from 12/04/[address] HEAD WO from 12/04/2020 FINDINGS: CEREBRAL PARENCHYMA: There is now symmetrical meningeal thickening over the entirety of both rule convexities, not present on prior MRI scan performed on 12/04/2020. Maximum thickness is over the bilateral frontal lobes wh ere this thickening measures up to 3.5 mm. These symmetrical bilateral findings are isointense to br ain on T1 and FLAIR sequences There is no significant focal signal abnormality in the cerebellar hemispheres nor within the tanya, m idbrain, and thalami. There is no abnormal signal abnormality in the periventricular white matter. There is no significant focal signal abnormality evident on diffusion imaging to suggest acute ischem ic event. PITUITARY GLAND: No mass nor parasellar abnormality. No obvious abnormality in the cavernous sinuses. FLOW VOIDS: The expected flow void are noted. No evidence of obvious aneurysm nor obvious vascular ma lformation. PARANASAL SINUSES: There is mucosal thickening again noted in the paranasal sinuses. Also fluid sign al abnormality again noted in mastoid air cells on the right side, more so than previous. Left masto id air cells are clear. ORBITS: No obvious findings. IMPRESSION: Symmetrical thickening of the meninges over both convexities which was not previously present on the MRI scan of November 2020. No new intra-axial findings. Differential diagnosis for diffuse thickening of the meninges can include infectious/inflammatory, al so including tuberculosis, sarcoidosis, Lyme disease, fungal. Consider performing additional contrast infused MRI sequences as well as non few CT scan. Discussed with ER physician. DATA REPOSITORY:
--- NOTE | 2023-11-01 08:56 | DI.VRAD_ITS ---
PROCEDURE INFORMATION: Exam: MR Head Without Contrast Exam date and time: 11/01/2023 7:42 AM Age: 73 years old Clinical indication: Dizziness TECHNIQUE: Imaging protocol: Magnetic resonance imaging of the head without contrast. COMPARISON: No relevant prior studies available. FINDINGS: Brain: There is diffuse extra-axial collections which is essentially isointense to brain tissue on FLAIR images, slightly hyperintense to CSF on T1 weighted images, and hyperintense on T2 weighted images. This measures approximately 4.5 mm along cerebral convexities. There is thinner along falx and along margins of posterior fossa which appears to extend into the internal auditory canals. This may be subdural fluid / hemorrhage or dural thickening. Recommend correlation to non contrasted head CT. There is no nodularity. If dural thickening this may be related to idiopathic hypertrophic pachymeningitis. Clinical correlation is recommended to exclude conditions which can be associated with hypertrophic meningitis prior to diagnosis of idiopathic hypertrophic pachymeningitis including sarcoidosis, neoplastic etiologies, infections including granulomatous infections (sypilis, tuberculosis, and fungal) and Lyme disease, or autoimmune diseases (rheumatoid arthritis, Sjogren's syndrome, Lo's granulomatosis, and IgG 4-related disease). No abnormal areas of signal intensity are seen within the brain parenchyma. No evidence of white matter disease. Diffusion images are normal. No evidence of acute infarction. No evidence of acute intracranial hemorrhage. There is no evidence of mass-effect or midline shift. Flow voids of the [place] and major cerebral vascular structures appear intact. Cerebral ventricles: Ventricles and cerebrospinal fluid spaces are normal in size and configuration for the patient's age. Bones/joints: Craniocervical junction appears unremarkable, with normal position of cerebellar tonsils and no evidence of Chiari I malformation. Paranasal sinuses: There is mucosal thickening in paranasal sinuses. Mastoid air cells: There is fluid partially opacifying right mastoid air cells. Orbital cavities: Unremarkable. Soft tissues: Unremarkable as visualized. IMPRESSION: 1. Dural thickening versus subdural fluid/hemorrhage. Recommend correlation to non- contrasted head CT. 2. No evidence of acute infarct, acute intra-axial/parenchymal hemorrhage, or evidence of mass. Dictated and Authenticated by: Wendy Flores MD. Ordering:RADHA Recinos MD
--- NOTE | 2023-11-01 10:40 | DI.CT_ITS ---
Exam(s) CT HEAD WO EXAM: CT HEAD WO CLINICAL HISTORY: as recommended by radiology, finding on MRI. TECHNIQUE: Imaging Protocol: Axial computed tomography images with coronal and sagittal reformatted images were created and reviewed COMPARISON: CT CT HEAD WO from 12/04/2020 M RI November 2020 MRI performed 12/04/2020 FINDINGS: There are no skull fractures. Mucosal thickening in the paranasal sinuses again noted. There is no evidence of acute intracranial hemorrhage, new mass effect, or shift of midline structure s. However, the CSF spaces over the frontal convexities appears slightly more prominent than on CT s can of 3 years ago and this most probably corresponds to the finding seen on MRI scan performed earli er today. Probably related to thickened meninges as there is no acute hyperdense extra-axial blood. Ventricular size is normal. Calcification in the vertebral arteries at the skull base noted. Also w ithin the internal carotid arteries. IMPRESSION: Subtle bilateral convexity findings which correspond to the findings on today's MRI. Favor thickened meninges over subdural collections. Added specificity would be obtained with contrast infused MRI sequences. Inflamed meninges would be expected to enhance. RADIATION DOSE DELIVERED: Total DLP DATA REPOSITORY: All CT scans at this facility are submitted to the National Radiology Data Registry (NRDR) Dose Index Registry (DIR) with the [employer] ([employer]). RADIATION OPTIMIZATION: All CT scans at this facility use at least one of these dose optimization te chniques: automated exposure control; mA and/or kV adjustment per patient size (includes targeted exa ms where dose is matched to clinical indication); or iterative reconstruction.
--- NOTE | 2023-11-01 10:54 | ED.PROG_ITS ---
Date of service: 11/01/23 Time of Service: 10:54 Medical Decision Making 1055 --care signed out by Dr. Wolf, please see her documentation regarding initial ED presentation course. Plan at signout was to follow-up on MRI of the brain. MRI of the brain was interpreted by radiology: Dural thickening versus subdural fluid/hemorrhage. Recommend correlation to noncontrasted head CT. No evidence of acute infarct, acute intra-axial/parenchymal hemorrhage, or evidence of mass. I spoke with Dr. Allen who recommends follow-up noncontrast CT of the head. CT of the head was interpreted by radiology: Subtle bilateral convexity findings which correspond to the findings on today's MRI. Favor thickened meninges over subdural collections. Added specificity would be obtained with contrast infused MRI sequences. Inflamed meninges would be expected to enhance. Patient reassessed and notes significant improvement after meclizine. He still has some symptoms when he turns his head briskly. He has no neck pain or stiffness. Plan for discharge with close outpatient follow-up with neurology. Usual and customary discharge instructions reviewed with the patient. Lab Data Lab results reviewed: Yes I reviewed the patient's lab results. Labs: Laboratory Tests Range/Units 11/01/23 06:15 WBC (4.4-10.8) 10^3/uL 6.55 RBC (4.36-5.78) 10^6/uL 5.08 Hgb (13.5-17.5) g/dL 14.8 Hct (40.0-50.0) % 42.5 MCV (80-95) fL 84 MCH (27.0-33.0) pg 29.1 MCHC (32.0-36.0) % 34.8 RDW (11.8-14.1) % 12.2 Plt Count (130-400) 10^3/uL 280 MPV (8.0-11.0) fL 10.5 Immature Gran % 0.3 Neutrophils % 65.4 Lymphocytes % 22.1 Monocytes % 7.0 Eosinophils % 4.0 Basophils % 1.2 Nucleated RBC % (0.0-0.3) % 0.0 Absolute Neutrophils (1.2-6.7) 10^3/uL 4.28 Absolute Lymphocytes (1.2-3.4) 10^3/uL 1.45 Absolute Monocytes (0.1-0.8) 10^3/uL 0.46 Absolute Eosinophils (0.0-0.7) 10^3/uL 0.26 Absolute Basophils (0.0-0.2) 10^3/uL 0.08 Sodium (136-145) mmol/L 142 Potassium (3.5-5.1) mmol/L 3.7 Chloride (98-107) mmol/L 106 Carbon Dioxide (21.0-32.0) mmol/L 27.4 Anion Gap (3-11) mmol/L 8.6 BUN (7-18) mg/dL 18 Creatinine (0.70-1.30) mg/dL 1.1 Est GFR (CKD-EPI 2020) (mL/min/1.73m2) 70.01 Glucose (74-106) mg/dL 111 H Calcium (8.5-10.1) mg/dL 9.1 Total Bilirubin (0.2-1.0) mg/dL 0.6 AST (15-37) U/L 24 ALT (16-63) U/L 34 Alkaline Phosphatase (46-116) U/L 61 Total Protein (6.4-8.2) g/dL 7.6 Albumin (3.4-5.0) g/dL 3.9 Quality:SDOH Health Related Social Needs: No Data to Display Sign Out Sign Out Data: Sign Out Comment: 73M hx BPPV presents with vertigo, improving after meclizine. Normal neuro exam. Pending labs & CT and reassessment Last updated by Michelle Wolf MD at 11/01/23 07:15 Discharge Plan Disposition Patient Disposition: Home Condition: Stable Discharge Details Clinical Impression: Vertigo Primary Care Provider: Gaviota Brock ED Provider: Jorje Damon Home Meds and New Rx's Prescriptions: Continued mesalamine [Lialda] 1.2 gram tablet,delayed release (DR/EC) 2.4 g PO DAILY valsartan 40 mg tablet 40 mg PO DAILY venlafaxine 37.5 mg capsule,extended release 24hr 37.5 mg PO DAILY metoprolol succinate 25 mg tablet extended release 24 hr 25 mg PO DAILY tamsulosin [Flomax] 0.4 mg capsule 0.4 mg PO DAILY Qty: 90 3RF omeprazole 20 MG capsule,delayed release(DR/EC) 20 mg PO DAILY@0730 amlodipine 5 MG tablet 10 mg PO DAILY sildenafil 100 mg tablet 100 mg PO PRN meclizine [Antivert] 50 mg tablet 50 mg PO DAILY PRN aspirin [Ecotrin Low Strength] 81 MG tablet,delayed release (DR/EC) 81 mg PO DAILY multivitamin 1 EACH capsule 1 ea PO DAILY Discharge Instructions Instructions: Vertigo (ED) Additional Instructions: Imaging of your brain showed abnormal findings that require follow-up. Please follow-up with neurology. Please contact your primary care physician to arrange follow-up. Return to the ER immediately for any worsening or new concerning symptoms. Stand Alone Forms: Physical Therapy Referral Referrals: [facility] [Provider Group] Gaviota Brock [Primary Care Provider] - Discharge Data Discharge Date/Time-TO BE ENTERED AT DEPARTURE: 11/01/23 11:22
--- NOTE | 2023-11-01 16:32 | NUR.NOTE ---
Referral faxed to [facility] for abnormal MRI and CT finding, vertigo; for ANA ROSA. Nursing Note:
== END 2023-11-01 11:22 | disposition home or self-care (01) ==
PROVIDERS: Student in an Organized Health Care Education/Training Program; Emergency Provider Student in an Organized Health Care Education/Training Program; PCP Nurse Practitioner Family
DX: R42 Dizziness and giddiness (principal); I10 Essential (primary) hypertension; Z79.82 Long term (current) use of aspirin; Z87.891 Personal history of nicotine dependence
CPT/HCPCS: 00123; 80053; 93005; 99285; 70450; 70551; 85025; 93010; 99284; J3490

== ENCOUNTER → 2023-11-09 13:40 | Outpatient (BNVA) | payer MEDICARE, SELFPAY | PROVIDERS: PCP Nurse Practitioner Family; Referring Provider Nurse Practitioner Family; Visit Provider Psychiatry & Neurology Neurology | DX: G96.198 Other disorders of meninges, not elsewhere classified (principal) | CPT/HCPCS: 99215 ==

== ENCOUNTER 2023-11-11 05:00 | Outpatient (CLI) | payer MEDICARE, SELFPAY ==
[2023-11-11 15:10] LABS: ESR 9 mm/hr (0-20)
[2023-11-12 10:01] LABS: IgA 418 mg/dL (85-499); IgG 937 mg/dL (610-1616); IgM 39 mg/dL (35-242)
[2023-11-12 14:32] LABS: ANA Interpretation Positive (Negative); ANA Titer Pattern 1:640 Homogeneous
[2023-11-12 18:06] LABS: Myeloperoxidase Ab IgG <0.2 U; Proteinase 3 Ab (PR3) <0.2 U
[2023-11-12 18:10] LABS: Angiotensin Converting Enzyme 23 U/L (16 - 85)
[2023-11-12 18:45] LABS: Immunoglobulin Subclass IgG4 89.8 mg/dL
[2023-11-16 12:37] LABS: RNP Ab, IgG <6.0 CU (<20.0); Ro60 Ab, IgG <7.0 CU (<20.0); SS-A/Ro, IgG <2.3 CU (<20.0); SS-B (La) Ab, IgG <3.3 CU (<20.0); Sm (Smith) Ab, IgG <8.0 CU (<20.0)
== END 2023-11-11 05:01 | disposition home or self-care (01) ==
LOC: LBO 05:00
PROVIDERS: PCP Nurse Practitioner Family; Visit Provider Psychiatry & Neurology Neurology
DX: G96.198 Other disorders of meninges, not elsewhere classified (principal)
CPT/HCPCS: 36415; 82164; 82784; 82787; 85652; 83516; 86038; 86140; 86225; 86235

== ENCOUNTER → 2023-11-25 03:25 | Outpatient (CLI) | payer MEDICARE, SELFPAY ==
--- NOTE | 2023-11-25 | DI.US_ITS ---
Exam(s) US AAA SCREENING EXAM: US AAA SCREENING CLINICAL HISTORY: VASCULAR DISORDER I99.9 DISORDER CIRCULATORY SYSTEM COMPARISON: No exams were available for comparison FINDINGS: Abdominal Aorta: Proximal: 2.1 cm Mid: 2.0 cm Distal: 1.9 cm Iliacs: Right: 1.3 cm Left: 1.3 cm IMPRESSION: No evidence of abdominal aortic aneurysm. DATA REPOSITORY:
== END ==
PROVIDERS: PCP Nurse Practitioner Family; Visit Provider Nurse Practitioner Family
DX: I99.9 Unspecified disorder of circulatory system (principal)
CPT/HCPCS: 76706

== ENCOUNTER 2024-03-08 03:04 | Outpatient (CLI) | payer MEDICARE, SELFPAY ==
--- OUTSIDE RECORDS SUMMARY | 2024-03-08 03:05 | XMS_ITS | Data Portability ---
Author Organization [place] [facility], [facility] Address Romero [place] [address] Assessment Encounter Date Assessment Date Assessment LastModified by Organization Details LastModified Time 11/22/2023 11/22/2023 Patient presente d to office today for their Medicare Annual Wellness Visit. Education was provided on healthy nutrition, including a diet rich in fruits and vegetables, minimizing simple carbohydrates, salt, and saturated fats. Encouraged regular cardiovascular exercise such as walking at least 30 minutes daily, 5 times per week. Emphasized preventive health measures and educated pt on fall prevention and community-based lifestyle interventions to help reduce health risks and promote healthy living. Personalized prevention plan (PPP) completed and reviewed with patient. Patient was given written copy of PPP at conclusion of visit, detailing prior screening and 5-10 year future screening plan including: screenings for breast cancer and colorectal cancer, immunizations, and other age appropriate screenings consistent with USPSTF and ACIP guidelines Flu vaccine: current Comirnaty: current Td: current PCV20: completed Shingrix: had zostervax 2012 RSV: counseled to get at local pharmacy as desires; no desires for Follow-up in 6 Months. Call or RTO sooner if needs arise. Not available 11/22/2023 11:43:40 Plan of Treatment Reminders Order Date Submit Date Provider Last Modified By Organization Details Last Modified Time Details Appointments Office Visit 2023 09:30A M Not available Not available Not available Lab None recorded. Referral None recorded. Procedures None recorded. Surgeries None recorded. Imaging US, screening for abdominal aortic aneurysm 2023 024 [facility] (Radiology), [address] [place] [address] [place], [address], 12/21/2023 08:34:32 Medication Orders metoprolo l succinate ER 25 mg tablet,ex tended release 24 hr 2023 024 [email or web address] [facility], [address] [place], [address], 11/22/2023 11:44:31 omeprazol e 20 mg capsule,d elayed release 2023 024 [email or web address] [facility], [address] [place], [address], 11/22/2023 11:44:31 Patient TargetsNo targets recorded. Patient Instructions Encounter Date Encounter Id Patient Instructions Last Modified By Organization Details Last Modified Time 11/22/2023 [id number] Discussed and explained advance directives such as standard forms to the {{patient* caregi hiwot patient and caregiver}}. Completed in 2020; does not feel needs updating. Face to face discussion lasted for a duration of 1 minutes. Not available 11/22/2023 11:34:12 Reason for Referral Physical Therapist Referral for Dizziness Referring Physician: Gaviota Nagy, Family Medicine, Encounter Date: 11/03/2023 Neurologist Referral for Diz ziness Referring Physician: Gaviota Nagy Family Medicine, Encounter Date: 11/03/2023 Results Created Date Observation Date Name Description Value Unit Range Abnormal Flag LastModifiedBy Organization Detail LastModifiedTime 11/01/19 24 11/01/2023 COMPL ETE BLOOD COUNT W/DIF F WBC 6.55 10_3/ uL 4.4-10 .8 normal Not Available [address] [place], [address] 11/01/2023 07:03:16 11/01/19 24 11/01/2023 COMPL ETE BLOOD COUNT W/DIF F RBC 5.08 10_6/ uL 4.36-5 .78 normal Not Available [address] [place], [address] 11/01/2023 07:03:16 11/01/19 24 11/01/2023 COMPL ETE BLOOD COUNT W/DIF F HGB 14.8 g/dL 13.5-1 7.5 normal Not Available [address] [place], [address] 11/01/2023 07:03:16 11/01/19 24 11/01/2023 COMPL ETE BLOOD COUNT W/DIF F HCT 42.5 % 40.0-5 0.0 normal Not Available [address] [place], [address] 11/01/2023 07:03:16 11/01/19 24 11/01/2023 COMPL ETE BLOOD COUNT W/DIF F MCV 84 fL 80-95 normal Not Available [address] [place], [address] 11/01/2023 07:03:16 11/01/19 24 11/01/2023 COMPL ETE BLOOD COUNT W/DIF F MCH 29.1 pg 27.0-3 3.0 normal Not Available [address] [place], [address] 11/01/2023 07:03:16 11/01/19 24 11/01/2023 COMPL ETE BLOOD COUNT W/DIF F MCHC 34.8 % 32.0-3 6.0 normal Not Available [address] [place], [address] 11/01/2023 07:03:16 11/01/19 24 11/01/2023 COMPL ETE BLOOD COUNT W/DIF F RDW 12.2 % 11.8-1 4.1 normal Not Available [address] [place], [address] 11/01/2023 07:03:16 11/01/19 24 11/01/2023 COMPL ETE BLOOD COUNT W/DIF F platelet count 280 10_3/ uL 130-40 0 normal Not Available [address] [place], [address] 11/01/2023 07:03:16 11/01/19 24 11/01/2023 COMPL ETE BLOOD COUNT W/DIF F MPV 10.5 fL 8.0-11 .0 normal Not Available [address] [place], [address] 11/01/2023 07:03:16 11/01/19 24 11/01/2023 COMPL ETE BLOOD COUNT W/DIF F neutrophils % 65.4 Not Available [address] [place], [address] 11/01/2023 07:03:16 11/01/19 24 11/01/2023 COMPL ETE BLOOD COUNT W/DIF F lymphocytes % 22.1 Not Available [address] [place], [address] 11/01/2023 07:03:16 11/01/19 24 11/01/2023 COMPL ETE BLOOD COUNT W/DIF F monocytes % 7.0 Not Available [address] [place], [address] 11/01/2023 07:03:16 11/01/19 24 11/01/2023 COMPL ETE BLOOD COUNT W/DIF F eosinophils % 4.0 Not Available [address] [place], [address] 11/01/2023 07:03:16 11/01/19 24 11/01/2023 COMPL ETE BLOOD COUNT W/DIF F basophils % 1.2 Not Available [address] [place], [address] 11/01/2023 07:03:16 11/01/19 24 11/01/2023 COMPL ETE BLOOD COUNT W/DIF F immature grans % 0.3 Not Available [address] [place], [address] 11/01/2023 07:03:16 11/01/19 24 11/01/2023 COMPL ETE BLOOD COUNT W/DIF F nucleated RBC 0.0 % 0.0-0. 3 normal Not Available [address] [place], [address] 11/01/2023 07:03:16 11/01/19 24 11/01/2023 COMPL ETE BLOOD COUNT W/DIF F absolute neutrophil count 4.28 10_3/ uL 1.2-6. 7 normal Not Available [address] [place], [address] 11/01/2023 07:03:16 11/01/19 24 11/01/2023 COMPL ETE BLOOD COUNT W/DIF F absolute lymphocyte count 1.45 10_3/ uL 1.2-3. 4 normal Not Available [address] [place], [address] 11/01/2023 07:03:16 11/01/19 24 11/01/2023 COMPL ETE BLOOD COUNT W/DIF F absolute monocyte count 0.46 10_3/ uL 0.1-0. 8 normal Not Available [address] [place], [address] 11/01/2023 07:03:16 11/01/19 24 11/01/2023 COMPL ETE BLOOD COUNT W/DIF F absolute eosinophil count 0.26 10_3/ uL 0.0-0. 7 normal Not Available [address] [place], [address] 11/01/2023 07:03:16 11/01/19 24 11/01/2023 COMPL ETE BLOOD COUNT W/DIF F absolute basophil count 0.08 10_3/ uL 0.0-0. 2 normal Not Available [address] [place], [address] 11/01/2023 07:03:16 11/01/19 24 11/01/2023 COMPR EHENS MIRELLA METAB OLIC PANEL calcium 9.1 mg/dL 8.5-10 .1 normal Not Available [address] [place], [address] 11/01/2023 07:16:17 11/01/19 24 11/01/2023 COMPR EHENS MIRELLA METAB OLIC PANEL glucose 111 mg/dL 74-106 high Not Available [address] [place], [address] 11/01/2023 07:16:17 11/01/19 24 11/01/2023 COMPR EHENS MIRELLA METAB OLIC PANEL BUN 18 mg/dL 7-18 normal Not Available [address] [place], [address] 11/01/2023 07:16:17 11/01/19 24 11/01/2023 COMPR EHENS MIRELLA METAB OLIC PANEL creatinine 1.1 mg/dL 0.70-1 .30 normal Not Available [address] [place], [address] 11/01/2023 07:16:17 11/01/19 24 11/01/2023 COMPR EHENS MIRELLA METAB OLIC PANEL estimated GFR 70.01 mL/min /1.73m 2 Not Available [address] [place], [address] 11/01/2023 07:16:17 11/01/19 24 11/01/2023 COMPR EHENS MIRELLA METAB OLIC PANEL total protein 7.6 g/dL 6.4-8. 2 normal Not Available [address] [place], [address] 11/01/2023 07:16:17 11/01/19 24 11/01/2023 COMPR EHENS MIRELLA METAB OLIC PANEL albumin 3.9 g/dL 3.4-5. 0 normal Not Available [address] [place], [address] 11/01/2023 07:16:17 11/01/19 24 11/01/2023 COMPR EHENS MIRELLA METAB OLIC PANEL bilirubin, total 0.6 mg/dL 0.2-1. 0 normal Not Available [address] [place], [address] 11/01/2023 07:16:17 11/01/19 24 11/01/2023 COMPR EHENS MIRELLA METAB OLIC PANEL alk phos 61 U/L 46-116 normal Not Available [address] [place], [address] 11/01/2023 07:16:17 11/01/19 24 11/01/2023 COMPR EHENS MIRELLA METAB OLIC PANEL sodium 142 mmol/ L 136-14 5 normal Not Available [address] [place], [address] 11/01/2023 07:16:17 11/01/19 24 11/01/2023 COMPR EHENS MIRELLA METAB OLIC PANEL potassium 3.7 mmol/ L 3.5-5. 1 normal Not Available [address] [place], [address] 11/01/2023 07:16:17 11/01/19 24 11/01/2023 COMPR EHENS MIRELLA METAB OLIC PANEL chloride 106 mmol/ L 98-107 normal Not Available [address] [place], [address] 11/01/2023 07:16:17 11/01/19 24 11/01/2023 COMPR EHENS MIRELLA METAB OLIC PANEL CO2 27.4 mmol/ L 21.0-3 2.0 normal Not Available [address] [place], [address] 11/01/2023 07:16:17 11/01/19 24 11/01/2023 COMPR EHENS MIRELLA METAB OLIC PANEL anion gap 8.6 mmol/ L 3-11 normal Not Available [address] [place], [address] 11/01/2023 07:16:17 11/01/19 24 11/01/2023 COMPR EHENS MIRELLA METAB OLIC PANEL AST 24 U/L 15-37 normal Not Available [address] [place], [address] 11/01/2023 07:16:17 11/01/19 24 11/01/2023 COMPR EHENS MIRELLA METAB OLIC PANEL ALT 34 U/L 16-63 normal Not Available [address] [place], [address] 11/01/2023 07:16:17 11/11/19 24 11/11/2023 ESR ESR 9 mm/HR 0-20 normal Not Available [address] [place], [address] 11/11/2023 15:16:04 11/11/19 24 11/11/2023 C-DELIA CTIVE PROTE IN C-reactive protein 2.80 mg/dL <or=0. 5 high Not Available [address] [place], [address] 11/11/2023 16:10:46 11/11/19 24 11/12/2023 IMMUN OGLOB ULINS IGA,I GG,IG M IgG 937 mg/dL 610-16 16 Not Available [address] [place], [address] 11/12/2023 12:48:46 11/11/19 24 11/12/2023 IMMUN OGLOB ULINS IGA,I GG,IG M IgA 418 mg/dL 85-499 Not Available [address] [place], [address] 11/12/2023 12:48:46 11/11/19 24 11/12/2023 IMMUN OGLOB ULINS IGA,I GG,IG M IgM 39 mg/dL 35-242 Not Available [address] [place], [address] 11/12/2023 12:48:46 11/11/19 24 11/12/2023 ANTI NUCLE AR ANTIB LORIE, IFA WEN interpretati on Positi ve negati ve abnormal Not Available [address] [place], [address] 11/12/2023 16:04:28 11/11/19 24 11/12/2023 ANTI NUCLE AR ANTIB LORIE, IFA WEN titer pattern 1:640 Homoge neous Not Available [address] [place], [address] 11/12/2023 16:04:28 11/11/19 24 11/12/2023 IMMUN OGLOB ULINS IGA,I GG,IG M IgG 937 mg/dL 610-16 16 Not Available [address] [place], [address] 11/12/2023 16:04:28 11/11/19 24 11/12/2023 IMMUN OGLOB ULINS IGA,I GG,IG M IgA 418 mg/dL 85-499 Not Available [address] [place], [address] 11/12/2023 16:04:28 04/18/20 24 11/12/2023 IMMUN OGLOB ULINS IGA,I GG,IG M IgM 39 mg/dL 35-242 Not Available [address] [place], [address] 11/12/2023 16:04:28 11/11/19 24 11/12/2023 ANTI NUCLE AR ANTIB LORIE, IFA WEN interpretati on Positi ve negati ve abnormal Not Available [address] [place], [address] 11/15/2023 09:10:15 11/11/19 24 11/12/2023 ANTI NUCLE AR ANTIB LORIE, IFA WEN titer pattern 1:640 Homoge neous Not Available [address] [place], [address] 11/15/2023 09:10:15 11/11/19 24 11/12/2023 ANGIO TENSI N CONVE RTING ENZYM E angiotensin converting enzyme 23 U/L 16 - 85 Not Available [address] [place], [address] 11/15/2023 09:10:15 11/11/19 24 11/12/2023 ANCA VASCU LITIS PANEL myeloperoxid ase Ab IgG <0.2 U Not Available [address] [place], [address] 11/15/2023 09:10:16 11/11/19 24 11/12/2023 ANCA VASCU LITIS PANEL proteinase 3 Ab (pr3) <0.2 U Not Available [address] [place], [address] 11/15/2023 09:10:16 11/11/19 24 11/12/2023 IMMUN OGLOB ULINS IGA,I GG,IG M IgG 937 mg/dL 610-16 16 Not Available [address] [place], [address] 11/15/2023 09:10:16 11/11/19 24 11/12/2023 IMMUN OGLOB ULINS IGA,I GG,IG M IgA 418 mg/dL 85-499 Not Available [address] [place], [address] 11/15/2023 09:10:16 11/11/19 24 11/12/2023 IMMUN OGLOB ULINS IGA,I GG,IG M IgM 39 mg/dL 35-242 Not Available [address] [place], [address] 11/15/2023 09:10:16 11/11/19 24 11/12/2023 IMMUN OGLOB ULIN SUBCL ASS IGG4 immunoglobul in subclass IgG4 89.8 mg/dL Not Available [address] [place], [address] 11/15/2023 09:10:17 11/11/19 24 11/12/2023 ANTI NUCLE AR ANTIB LORIE, IFA WEN interpretati on Positi ve negati ve abnormal Not Available [address] [place], [address] 11/16/2023 15:11:30 11/11/19 24 11/12/2023 ANTI NUCLE AR ANTIB LORIE, IFA WEN titer pattern 1:640 Homoge neous Not Available [address] [place], [address] 11/16/2023 15:11:30 11/11/19 24 11/12/2023 ANGIO TENSI N CONVE RTING ENZYM E angiotensin converting enzyme 23 U/L 16 - 85 Not Available [address] [place], [address] 11/16/2023 15:11:30 11/11/19 24 11/16/2023 YOJANA AB PANEL RO52 Ab, IgG <2.3 cu <20.0 Not Available [address] [place], [address] 11/16/2023 15:11:31 11/11/19 24 11/16/2023 YOJANA AB PANEL RO60 Ab, IgG <7.0 cu <20.0 Not Available [address] [place], [address] 11/16/2023 15:11:31 11/11/19 24 11/16/2023 YOJANA AB PANEL ss-B (la) Ab, IgG <3.3 cu <20.0 Not Available [address] [place], [address] 11/16/2023 15:11:31 11/11/19 24 11/16/2023 YOJANA AB PANEL sm (rascon) Ab, IgG <8.0 cu <20.0 Not Available [address] [place], [address] 11/16/2023 15:11:31 11/11/19 24 11/16/[address] PANEL 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 Ab, IgG <6.0 cu <20.0 Not Available [facility] [address] [place], [address] 11/16/2023 15:11:31 11/11/19 24 11/12/2023 ANCA VASCU LITIS PANEL myeloperoxid ase Ab IgG <0.2 U Not Available [address] [place], [address] 11/16/2023 15:11:31 11/11/19 24 11/12/2023 ANCA VASCU LITIS PANEL proteinase 3 Ab (pr3) <0.2 U Not Available [address] [place], [address] 11/16/2023 15:11:31 11/11/19 24 11/12/2023 IMMUN OGLOB ULINS IGA,I GG,IG M IgG 937 mg/dL 610-16 16 Not Available [address] [place], [address] 11/16/2023 15:11:32 11/11/19 24 11/12/2023 IMMUN OGLOB ULINS IGA,I GG,IG M IgA 418 mg/dL 85-499 Not Available [address] [place], [address] 11/16/2023 15:11:32 11/11/19 24 11/12/2023 IMMUN OGLOB ULINS IGA,I GG,IG M IgM 39 mg/dL 35-242 Not Available [address] [place], [address] 11/16/2023 15:11:32 11/11/19 24 11/12/2023 IMMUN OGLOB ULIN SUBCL ASS IGG4 immunoglobul in subclass IgG4 89.8 mg/dL Not Available Pat j[facility] [address] [facility] [place], [address] 11/16/2023 15:11:32 11/01/19 24 11/01/2023 vrad repor t Patien t Name: Ashkan Mejia Unit #: [id number] Loc: ER Orderi ng Provid er: Accoun t #: [id number] Status : REG ER Primar y Care Provid er: Keyonna Elaine Date of Exam: 03/18 Sex: M : 1949 Age: 73 Exam(s ) PROCED URE INFORM ATION: Exam: MR Head Withou t Contra st Exam date and time: 11/01/19 7:42 AM Age: 73 years old Clinic al indica tion: Dizzin ess TECHNI QUE: Imagin g protoc ol: Magnet ic resona nce imagin g of the head withou t contra st. COMPAR KIESHA: No releva nt prior studie s availa ble. FINDIN GS: Brain: There is diffus e extra- axial collec tions which is essent ially isoint ense to brain tissue on FLAIR images , slight ly hyperi ntense to CSF on T1 weight ed images , and hyperi ntense on T2 weight ed images . This measur es approx imatel y 4.5 mm along cerebr al convex ities. There is thinne r along falx and along margin s of dental technology advisor ior fossa which appear s to extend into the legal internship al audito ry canals . This may be subdur al fluid / hemorr john or dural thicke ximena. Recomm end correl ation to non contra sted head CT. There is no nodula rity. If dural thicke ximena this may be relate d to idiopa thic hypert rophic pachym eningi tis. Clinic al correl ation is recomm ended to exclud e condit ions which can be associ ated with hypert rophic mening itis prior to diagno sis of idiopa thic hypert rophic pachym eningi tis includ ing sarcoi dosis, neopla stic etiolo gies, infect ions includ ing granul omatou s infect ions (sypil is, tuberc ulosis , and fungal ) and Lyme diseas e, or autoim mune diseas es (rheum atoid arthri tis, Sjogre n's syndro me, Lo 's granul omatos is, and IgG 4-rela jaz diseas e). No abnorm al areas of signal intens ity are seen within the brain parenc hyma. No eviden ce of white matter diseas e. Diffus ion images are normal . No eviden ce of acute infarc tion. No eviden ce of acute intrac ranial hemorr john. There is no eviden ce of mass-e ffect or midlin e shift. Flow voids of the [place] and major cerebr al vascul ar struct ures appear intact . Cerebr al ventri cles: Ventri cles and cerebr cherise l fluid spaces are normal in size and config uratio n for the patien t's age. Bones/ joints : Cranio cervic al juncti on appear s unrema rkable , with normal positi on of cerebe llar tonsil s and no eviden ce of Chiari I malfor mation . Parana sandy sinuse s: There is mucosa l thicke ximena in parana sandy sinuse s. Mastoi d air cells: There is fluid partia lly opacif dean right mastoi d air cells. Orbita l caviti es: Unrema rkable . Soft tissue s: Unrema rkable as visual ized. IMPRES JOSS: 1. Dural thicke ximena versus subdur al fluid/ hemorr john. Recomm end correl ation to non- contra sted head CT. 2. No eviden ce of acute infarc t, acute intra- axial/ parenc hymal hemorr john, or eviden ce of mass. Dictat ed and Authmaury grady d by: Wendy palm MD. Orderi ng:Eduardo Recinos MD Access ion#=[id number] Ordermilka d By: CC: ------ ------ ------ ------ ------ ------ ------ ------ ------ ------ ------ ------ ---- Dictat ed By: Report s vrad [id number] Transc ribed By: Kary Stern 42 This is privil eged, confid ential inform ation intend ed only for the provid er named. Any use or distri bution by any person other than this provid er is strict ly prohib ited. If you receiv e this report in error, please notify us immedi ately at and return the origin al report to us at the addres s above. Thank- you. [email or web address] [facility] [address] [place], [address] 11/01/2023 09:10:32 11/01/19 24 11/01/2023 MRI imagi ng repor t Shaina t Name: Ashkan Mejia Unit #: [id number] Loc: ER Orderi ng Provid er: Jorje Damon M.D. Accoun t #: [id number] Status : REG ER Primar y Care Provid er: Keyonna Elaine Date of Exam: 03/18 Sex: M Admiss ion Date: : 1949 Age: 73 Exam(s ) MR BRAIN WO EXAM: MR BRAIN WO CLINIC AL HISTOR Y: dizzy TECHNI QUE: Multip lanar multis equenc e MRI of the brain was perfor med. COMPAR KIESHA: MR MR BRAIN WO from [address] HEAD WO from 2020 FINDIN GS: CEREBR AL PARENC HYMA: There is now symmet rical mening eal thicke ximena over the entire ty of both rule convex ities, not presen t on prior MRI scan perfor med on 2020. Bakari hartley ess is over the bilate ral fronta l lobes where this thicke ximena measur es up to 3.5 mm. These symmet rical bilate ral findin gs are isoint ense to brain on T1 and FLAIR sequen isabela There is no signif icant focal signal abnorm ality in the cerebe llar hemisp heres nor within the tanya, midbra in, and thalam i. There is no abnorm al signal abnorm ality in the perive ntricu lar white matter . There is no signif icant focal signal abnorm ality eviden t on diffus ion imagin g to sugges t acute ischem ic event. PITUIT YASHIRA GLAND: No mass nor parase llar abnorm ality. No obviou s abnorm ality in the cavern ous sinuse s. FLOW VOIDS: The expect ed flow void are noted. No eviden ce of obviou s aneury sm nor obviou s vascul ar malfor mation . PARANA SANDY SINUSE S: There is mucosa l thicke ximena again noted in the parana sandy sinuse s. Also fluid signal abnorm ality again noted in mastoi d air cells on the right side, more so than previo us. Left mastoi d air cells are clear. ORBITS : No obviou s findin gs. IMPRES JOSS: Symmet rical thicke ximena of the mening es over both convex ities which was not previo usly presen t on the MRI scan of November 2020. No new intra- axial findin gs. Differ ential diagno sis for diffus e thicke ximena of the mening es can includ e infect ious/i nflamm atory, also includ ing tuberc ulosis , sarcoi dosis, Lyme diseas e, fungal . Consid er perfor fartun additi onal contra st infuse d MRI sequen isabela as well as non few CT scan. Discus sed with ER physic oh. DATA REPOSI TORY: Greg marie By: Jorje Damon M.D. CC: ------ ------ ------ ------ ------ ------ ------ ------ ------ ------ ------ ------ - Dictat ed By: Kenny Allen M.D. 915 Transc ribed By: Tiffany COLORADO,Alec brownlee 915 This is privil eged, confid ential inform ation intend ed only for the provid er named. Any use or distri bution by any person other than this provid er is strict ly prohib ited. If you receiv e this report in error, please notify us immedi ately at [phone] and return the origin al report to us at the addres s above. Thank- you. [email or web address] [facility] [address], [place], [address] 11/01/2023 13:53:03 11/01/19 24 11/01/2023 CT imagi ng repor t Patien t Name: Ashkan Mejia Unit #: [id number] Loc: ER Orderi ng Provid er: Jorje Damon M.D. Accoun t #: [id number] Status : REG ER Primar y Care Provid er: Keyonna Elaine Date of Exam: 03/18 Sex: M : 1949 Age: 73 Exam(s ) a CT:CT head wo Exam(s ) CT HEAD WO EXAM: CT HEAD WO CLINIC AL HISTOR Y: as recomm ended by radiol nilton hayes on MRI. TECHNI QUE: Imagin g Protoc ol: Axial comput ed tomogr aphy images with meng l and sagitt al reform atted images were create d and review ed COMPAR KIESHA: CT CT HEAD WO from 2020 M RI November 2020 MRI perfor med 2020 FINDIN GS: There are no skull fractu res. Mucosa l thicke ximena in the parana sandy sinuse s again noted. There is no eviden ce of acute intrac ranial hemorr john, new mass effect , or shift of midlin e struct ures. Howeve r, the CSF spaces over the fronta l convex ities appear s slight ly more promin ent than on CT scan of 3 years ago and this most probab ly corres ponds to the findin g seen on MRI scan perfor med earlie r today. Probab ly relate d to thicke reece mening es as there is no acute hyperd ense extra- axial blood. Ventri cular size is normal . Calcif icatio n in the verteb ral arteri es at the skull base noted. Also within the legal internship al caroti d arteri es. IMPRES JOSS: Subtle bilate ral convex ity findin gs which corres pond to the findin gs on today' s MRI. Favor thicke reece mening es over subdur al collec tions. Added specif icity would be obtain ed with contra st infuse d MRI sequen isabela. Inflam ed mening es would be expect ed to enhanc e. RADIAT ION DOSE DELIVE RED: Total DLP DATA REPOSI TORY: All CT scans at this facili ty are submit jaz to the [facility] al Radiol ogy Data Regist ry (NRDR) Dose Index Regist ry (DIR) with the [place] [employer] [employer] [place]gy (ACR). RADIAT ION OPTIMI ZATION : All CT scans at this facili ty use at least one of these dose optimi zation techni ques: automa jaz exposu re contro l; mA and/or kV adjust ment per patien t size (inclu reny target ed exams where dose is matche d to clinic al indica tion); or iterat mirella recons tructi on. [id number] 016: Total DLP = 0.00 mGy-cm Ordere d By: Jorje Damon M.D. CC: ------ ------ ------ ------ ------ ------ ------ ------ ------ ------ ------ ------ ---- Dictat ed By: Kenny Allen M.D. 1050 1050 Transc ribed By: Tiffany COLORADO,Alec brownlee 1050 This is privil eged, confid ential inform ation intend ed only for the provid er named. Any use or distri bution by any person other than this [facility] is strict ly prohib ited. If you receiv e this report in error, please notify us immedi ately at and return the origin al report to us at the addres s above. Thank- you. 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 DATA REPOSI TORY: Greg marie By: Keyonna Elaine CC: ------ ------ ------ ------ ------ ------ ------ ------ ------ ------ ------ ------ - Dictat ed By: Wilbert Landa 1555 1555 Transc ribed By: Renetta Perez 1555 This is privil eged, confid ential inform ation intend ed only for the provid er named. Any use or distri bution by any person other than this provid er is strict ly prohib ited. If you receiv e this report in error, please notify us immedi yessicaly at and return the origin al report to us at the addres s above. Thank- you. [email or web address] [facility] (Radiology) [address] [facility] [place],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 completed Not Available [facility] 06/04/2023 05:00:48 SARS-COV-2 (COVID-19) vaccine, UNSPECIFIED 12/03/2021 completed Not Available [facility] 06/04/2023 05:00:48 COVID-19, mRNA, LNP-S, bivalent, PF, 30 mcg/0.3 mL dose 05/13/2022 completed Not Available [facility] 06/04/20 05:00:48 pneumococcal polysaccharide PPV23 07/11/2013 completed Not Available [facility] 2022 05:00:48 influenza, unspecified formulation 05/14/2016 completed Not Available [facility] 06/04/2023 05:00:48 influenza, unspecified formulation 06/03/2020 completed Not Available [facility] 06/04/2023 05:00:49 Influenza, high-dose, quadrivalent, PF 05/21/2023 completed Not Available [facility] 08/06/2023 05:31:18 Pneumococcal conjugate PCV20, polysaccharide [id number] conjugate, adjuvant, PF 03/30/2023 completed Not Available [facility] 08/06/2023 05:31:18 COVID-19, mRNA, LNP-S, PF, pooja-sucrose, 30 mcg/0.3 mL 05/21/2023 completed Not Available [facility] 08/06/2023 05:31:18 Past Encounters Encounter ID Performer Location Encounter Start Date Encounter Closed Date Diagnosis/Indication Diagnosis SNOMED-CT Code [id number] GAVIOTA NAGY [address] [address] 11/22/2023 10:27:42 11/22/2023 11:43:21 Adult health examination [id number] Screening for malignant neoplasm of colon 989572856 Vascular disorder 597349 09 Screening for disorder 955695563 Gastroesop hageal reflux disease without esophagitis 814200914 Chronic ul cerative rectosigmoiditis 32334899 Essential hypertension 01132488 Benign pro static hyperplasia 850859249 Obstructiv e sleep apnea syndrome 37009418 Adjustment disorder with mixed anxiety and depressed mood 459603060 Chronic sinusitis 506503 00 Disorder of meninges 157 20305 Vertigo 299117975 Health Concerns Section Related Observation LastModified by Organization Detai ls LastModified Time None Recorded Concern Status LastModified by Organization Details LastModified Time None Recorded Advance Directives Directive None Recorded Payers Encounter Date Sequence Insurance Name Policy Number Policy Phillips Covered Member ID Phillips Member ID Guarantor Name 11/22/2023 1 [id number]/A [place]ANTAGE - PPO) [id number] Ashkan Mejia [id number] Ashkan Mejia Notes Date Note Type Note Provider Name and Address Organization Details Recorded Time 11/22/2023 text/html HPI Notes: Medic are Annual Wellness Visit Reported by patient. Diet and Nutrition: follows recommended diet; discussed vitamin and supplement use; discussed portion control; discussed maintaining calcium balance; discussed diet improvement Fracture Risk: no recent explained fracture; hx of tib/ fib racture left leg 5-6 years ago. Physical Activity: good physical condition; discussed weightbearing activities; discussed exercise habits Depression Risk: never feels sad, empty, or tearful; no loss of interest in activities; no significant changes in weight; no sleep disturbances or insomnia; no agitation; no loss of energy; no feelings of worthlessness or guilt; no thoughts of suicide Orientation: oriented to person, place, time Concentration and Memory: no decreased concentrating ability; no memory lapses or loss; does not forget words Speech/Motor difficulties: no speech difficulties; no difficulty expressing formulated concepts; no difficulty with fine manipulative tasks; no difficulty writing/copying; no slowed reaction time; does not knock things over when trying to pick them up Hearing: no loss of hearing Vision: no vision problems; has reading glasses only Activities of Daily Living: able to bathe with limited or no assistance; able to control urination and bowels; able to dress with limited or no assistance; able to feed self with limited or no assistance; able to get out of chair or bed with limited or no assistance; able to groom with limited or no assistance; able to toilet with limited or no assistance Instrumental Activities of Daily Living: able to do house work with limited or no assistance; able to grocery shop with limited or no assistance; able to manage medications with limited or no assistance; able to manage money with limited or no assistance; able to prepare meals with limited or no assistance; able to use the phone with limited or no assistance; able to manage transportation with limited or no assistance Falls Risk Assessment: no frequent falls while walking; no fall in the past year; no fall since last visit Home Safety: no unsafe lina hazards; no unsafe stairs; no unsafe gas appliances; working smoke/CO detectors; wears protective head gear for biking/high velocity; use of seatbelts; no high risk sexual behavior; no vision or hearing loss while driving; good lighting in the home; firearms; does not have hand bars in the bathroom/shower; number of motor vehicle accidents 0; reviewed sun protection Is here for Medicare wellness exam. GAVIOTA NAGY, REENA [address], [place], [address], [facility]. 11/22/2023 12:26:50
--- OUTSIDE RECORDS SUMMARY | 2024-03-08 03:06 | XMS_ITS | Encounter Summary ---
Author Organization [facility] Address [address] [place] [address] Care Team Providers Care Frame Nailer Name Role Phone Anil Mcwilliams MD Primary Care Provider [phone] Encounter Details Date Type Department Care Team (Late st Contact Info) Description 03/10/2023 Lab Requisition [facility] Pathology & Laboratory Medicine - [facility] [address] [place], [place] [id number] Outr Resulting Lab, Provider Social History Tobacco Use Types Packs/Day Years Used Date Smoking Tobacco: Never Assessed Sex and Gender Information Value Date Recorded Sex Assigned at Not on file Gender Identity Not on file Sexual Orientation Not on file documented as of this encounter Plan of Treatment Not on file documented as of this encounter Procedures Procedure Name Priority Date/Time Associated Diagnosis Comments PSA TOTAL, DIAGNOSTIC Routine 03/10/2023 8:55 EDT documented in this encounter Results * (ABNORMAL) PSA TOTAL, DIAGNOSTIC (03/10/2023 8:55 EDT) PSA 7.8(H) <=6.5 ng/mL 03/10/2023 19:08 EDT [facility] Blood VENOUS BLOOD / Unknown 03/10/2023 8:55 EDT 03/10/2023 17:24 EDT Narrative [facility] - 03/10/2023 19:08 EDT NOTE: Serum PSA concentration should not be interpreted as absolute evidence for the presence or absence of malignant disease. Assayed on Siemens AD[employer]IA [employer] XPT using chemiluminescent technology.??Values obtained by using different assay methods cannot be used interchangeably. Provider Outr Resulting Lab CHEMISTRY & BLOOD GAS ORDERABLES [facility] [address] [place] [address] documented in this encounter Visit Diagnoses Not on filedocumented in this encounter Care Teams Frame Nailer Relationship Specialty Start Date End Date Anil Mcwilliams MD [address] [place] [address] PCP - General 08/15/10 documented as of this encounter
--- OUTSIDE RECORDS SUMMARY | 2024-03-08 03:06 | XMS_ITS | Referral Summary ---
Author Organization [facility] Address [address] [place] [address] Care Team Providers Care Instructor Flying Name Role Phone Anil Mcwilliams MD Primary Care Provider [phone] Social History Tobacco Use Types Packs/Day Years Used Date Smoking Tobacco: Never Assessed Sex and Gender Information Value Date Recorded Sex Assigned at Not on file Gender Identity Not on file Sexual Orientation Not on file Plan of Treatment Not on file Care Teams Instructor Flying Relationship Specialty Start Date End Date Anil Mcwilliams MD [address] [place] [address] PCP - General 08/15/10
--- OUTSIDE RECORDS SUMMARY | 2024-03-08 03:06 | XMS_ITS | Encounter Summary ---
Author Organization [facility] Address [address] [place] [address] Care Team Providers Care Maintenance Engineer Name Role Phone Unknown, Provider Primary Care Provider Encounter Details Date Type Department Care Team (Late st Contact Info) Description 08/13/2010 Results Only [facility] Laboratory Services - [facility] ([facility] [address] [place], [place] [address] Giuliano Galdamez MD [address] [place], [place] [id number] Social History Tobacco Use Types Packs/Day Years Used Date Smoking Tobacco: Never Assessed Sex and Gender Information Value Date Recorded Sex Assigned at Not on file Gender Identity Not on file Sexual Orientation Not on file documented as of this encounter Plan of Treatment Not on file documented as of this encounter Procedures Procedure Name Priority Date/Time Associated Diagnosis Comments SURGICAL PATHOLOGY Routine 08/13/2010 0:00 EST documented in this encounter Results * SURGICAL PATHOLOGY (08/13/2010 0:00 EST) Pathology Report: SURGICAL PATHOLOGY REPORT ? Reports generated via electronic interface contain original data; ? however they are lacking the format of the original report. ? Caution should be taken when reading/interpreti ng unformatted reports. ? Name: ? JOE, DINORAH L ? Accession #: ? [id number] ? : ? 1950 (Age: 60) ??M ? Collect Date: ? 08/13/2010 ? Location: ? [facility] ? Receive Date: ? 08/13/2010 ? Provider: GIULIANO WALKO MD ? Copy to: LEILANI FONTANEZ MD ? Final Pathologic Diagnosis: ? A. ?Duodenum, nodule, biopsy: ? 1. ?Benign lymphangioma. ? B. ?Stomach, antrum, biopsies: ? 1. ?Chronic active gastritis, moderate. ? 2. ? Helicobacter pylori organisms identified on H&E stained sections. ? C. ?Stomach, body, biopsies: ? 1. ?Chronic active gastritis, moderate. ? 2. ? Helicobacter pylori organisms identified on H&E stained sections. ? D. ?Terminal ileum, biopsies: ? 1. ?Active ileitis with architectural distortion. See comment ? E. ?Colon, ascending, biopsies: ? 1. ?Active colitis, with architectural distortion. ? F. ?Colon, transverse, biopsies: ? 1. ?Colonic mucosa with mild architectural disarray. ? G. ?Colon, left, random, biopsies: ? 1. ?No specific pathologic features. ? H. ?Rectum, random, biopsies: ? 1. ?No specific pathologic features. ? Comment: ? Histologic sections of the terminal ileum and ascending colon show active ?? inflammation and architectural distortion. These features ??may represent changes secondary to non steroidal anti inflammatory drug use, however, an early ? evolving inflammatory bowel disease is also in the differential diagnosis. ? Clinical endoscopic correlation is required. (Dr. Cabrera/brendon ? Document reviewed and electronically signed by: ? SAUD CIAMPA MD ? Report ??Date: 08/15/2010 16:25 ? By the signature above, the attending physician certifies that he/she has ? personally conducted a gross and/or microscopic examination of the described ? specimens and rendered or confirmed the above diagnosis. ? Specimen(s) Received: ? EGD ? A. ?Duodenal mucosal nodule (#1) ? B. ? Bx gastric antrum (#2) ? C. ? Bx gastric body (#3) ? Colonoscopy ? D. ?Bx terminal ileum (#4) ? E. ? Bx ascending colon (#5) ? F. ? Bx transverse colon (#6) ? G. ? Left colon random bx (includes descending & sigmoid colon) (#7) ? H. ? Random rectal bxs (#8) ? Clinical History: ? GERD; colorectal CRC screen ? Gross Description: ? Received in [employer]'s fixative labelled Dinorah Joe and #1 ??duodenal ?? mucosal nodule is a 0.2 x 0.2 x 0.2 cm biopsy. ??The specimen is submitted ? intact as (A). ? Received in [employer]'s fixative labelled Dinorah Joe and #2 ??bx gastric ? antrum are two biopsies measuring 0.3 x 0.3 x 0.3 cm and 0.5 x 0.4 x 0.3 cm. ?? The specimens are submitted intact as (B). ? [facility] fix[facility] labelled Dinorah Joe and #3 ??bx gastric ? body are two biopsies measuring 0.5 x 0.2 x 0.2 cm each. ??The specimens are ? submitted intact as (C). ? Received in [facility] fixative labelled Dinorah Joe and #4 ??bx terminal ?? ileum are three biopsies which vary in size from 0.3 x 0.2 x 0.2 cm up to 0.6 x 0.2 x 0.2 cm. ??The specimens are submitted intact as (D). ? Received in [facility]'s fixative labelled Dinorah Joe and #5 ??bx ascending ?? colon are five biopsies which vary in size from 0.2 x 0.2 x 0.2 cm up to 0.3 x 0.3 x 0.2 cm. ??The specimens are submitted intact as (E1) and (E2). ? Received in [facility]'s fixative labelled Dinorah Joe and #6 ??bx transverse colon are two biopsies each measuring 0.2 x 0.2 x 0.2 cm. ??The specimens are ?? submitted intact as (F). ? Received in [facility]'s fixative labelled Dinorah Joe and #7 ??left colon ? random bxs includes descending and sigmoid colon are four biopsies which vary ?? in size from 0.2 x 0.2 x 0.2 cm up to 0.4 x 0.2 x 0.1 cm. ??The specimens are ? submitted intact as (G1) and (G2). ? Received in [employer]'s fixative labelled JoeDinorah and #8 ??random rectal bxs are two biopsies each measuring 0.2 x 0.2 x 0.2 cm. ??The specimens are ? submitted intact as (H). ??(Lee Sheppard)/mms ? End of Report ? JAY HASTINGS 08/13/2010 08/13/2010 8:0 7 EST Giuliano Galdamez MD PATHOLOGY ORDERABLES Performing Organization Address City/State/[facility] Co de Phone Number JAY HASTINGS [address] [place] [address] documented in this encounter Visit Diagnoses Not on filedocumented in this encounter Care Teams Maintenance Engineer Relationship Specialty Start Date End Date Unknown, Provider, PCP - General 08/13/10 08/14/10 documented as of this encounter
--- OUTSIDE RECORDS SUMMARY | 2024-03-08 03:06 | XMS_ITS | Encounter Summary ---
Author Organization [facility] Address [address] [place] [address] Care Team Providers Care Antisubmarine Weapons Officer Name Role Phone Anil Mcwilliams MD Primary Care Provider [phone] Encounter Details Date Type Department Care Team (Late st Contact Info) Description 06/04/2021 Lab Requisition [facility] Pathology & Laboratory Medicine - [facility] [address] [place], [place] [phone] Outr Resulting Lab, Provider Social History Tobacco [...] Associated Diagnosis Comments PSA TOTAL, DIAGNOSTIC Routine 06/04/2021 12:32 EST documented in this encounter Results * (ABNORMAL) PSA TOTAL, DIAGNOSTIC (06/04/2021 12:32 EST) PSA 10.1(H) 0.0 - 6.5 ng/mL 06/04/2021 22:41 EST [facility] Blood VENOUS BLOOD / Unknown 06/04/2021 12:32 EST 06/04/2021 21:38 EST Narrative [facility] - 06/04/2021 22:41 EST NOTE: Serum PSA concentration should not be interpreted as absolute evidence for the presence or absence of malignant disease. Assayed on Siemens ADVIA [employer] XPT using chemiluminescent technology.??Values obtained by using different assay methods cannot be used interchangeably. Provider Outr Resulting Lab CHEMISTRY & BLOOD GAS ORDERABLES [facility] [address] [place] [address] documented in this encounter Visit Diagnoses Not on filedocumented in this encounter Care Teams Antisubmarine Weapons Officer Relationship Specialty Start Date End Date Anil Mcwilliams MD [address] [place] [id number] PCP - General 08/15/10 documented as of this encounter
--- OUTSIDE RECORDS SUMMARY | 2024-03-08 03:06 | XMS_ITS | Encounter Summary ---
Author Organization [facility] Address [address] [place] [address] Care Team Providers Care Buckle Attacher Name Role Phone Anil Mcwilliams MD Primary Care Provider [phone] Encounter Details Date Type Department Care Team (Late st Contact Info) Description 08/04/2019 Lab Requisition [facility] Pathology & Laboratory Medicine - [facility] [address] [place] [address] Unknown, ProviderMD Social History Tobacco Use Types Packs/Day Years [...] Associated Diagnosis Comments PSA TOTAL, DIAGNOSTIC Routine 08/04/2019 7:35 EST documented in this encounter Results * (ABNORMAL) PSA TOTAL, DIAGNOSTIC (08/04/2019 7:35 EST) PSA 8.4(H) 0.0 - 6.5 ng/mL 08/07/2019 11:50 EST [facility] Blood VENOUS BLOOD / Unknown 08/04/2019 7:35 EST 08/04/2019 15:55 EST Narrative [facility] - 08/07/2019 11:50 EST NOTE: Serum PSA concentration should not be interpreted as absolute evidence for the presence or absence of malignant disease. Assayed on Siemens ADVIA [employer]aur XPT using chemiluminescent technology.??Values obtained by using different assay methods cannot be used interchangeably. Provider Unknown CHEMISTRY & BLOOD GA S ORDERABLES [facility] [address] [place] [address] documented in this encounter Visit Diagnoses Not on filedocumented in this encounter Care Teams Buckle Attacher Relationship Specialty Start Date End Date Anil Mcwilliams MD [address] [place] [id number] PCP - General 08/15/10 documented as of this encounter
--- OUTSIDE RECORDS SUMMARY | 2024-03-08 03:06 | XMS_ITS | Encounter Summary ---
Author Organization [facility] Address [address] [place] [address] Care Team Providers Care Chairman & Ceo Name Role Phone Anil Mcwilliams MD Primary Care Provider [phone] Encounter Details Date Type Department Care Team (Late st Contact Info) Description 09/08/2023 Lab Requisition [facility] Pathology & Laboratory Medicine - [facility] [address] [place], [place] [phone] Outr Resulting Lab, Provider Social History Tobacco [...] Associated Diagnosis Comments PSA TOTAL, DIAGNOSTIC Routine 09/08/2023 9:00 EST documented in this encounter Results * PSA TOTAL, DIAGNOSTIC (09/08/2023 9:00 EST) PSA 5.7 <=6.5 ng/mL 09/08/2023 19:03 EST [facility] Blood VENOUS BLOOD / Unknown 09/08/2023 9:00 EST 09/08/2023 17:00 EST Narrative [facility] - 09/08/2023 19:03 EST NOTE: Serum PSA concentration should not be interpreted as absolute evidence for the presence or absence of malignant disease. Assayed on Siemens ADVIA [employer] XPT using chemiluminescent technology.??Values obtained by using different assay methods cannot be used interchangeably. Provider Outr Resulting Lab CHEMISTRY & BLOOD GAS ORDERABLES [facility] [address] [place] [address] documented in this encounter Visit Diagnoses Not on filedocumented in this encounter Care Teams Chairman & Ceo Relationship Specialty Start Date End Date Anil Mcwilliams MD [address] [place] [address] PCP - General 08/15/10 documented as of this encounter
--- OUTSIDE RECORDS SUMMARY | 2024-03-08 03:06 | XMS_ITS | Encounter Summary ---
Author Organization [facility] Address [address] [place] [address] Care Team Providers Care Bicycle Service Technician Name Role Phone Anil Mcwilliams MD Primary Care Provider [phone] Encounter Details Date Type Department Care Team (Late st Contact Info) Description 11/11/2023 Lab Requisition [facility] Pathology & Laboratory Medicine - [facility] [address], [place] [id number] Outr Resulting Lab, Provider Social History Tobacco [...] Procedure Name Priority Date/Time Associated Diagnosis Comments YOJANA ANTIBODY PANEL Routine 11/11/2023 14 :28 EDT IMMUNOGLOBULINS Routine 11/11/2023 14:28 EDT ANTI NUCLEAR AB (WEN), IFA Routine 11/11/2023 14:28 EDT documented in this encounter Results * IMMUNOGLOBULINS (11/11/2023 14:28 EDT) IgG 937 610 - 1,616 mg/dL 11/12/2023 9:[address] [facility] IgA 418 85 - 499 mg/dL 11/12/2023 9:[address] [facility] IgM 39 35 - 242 mg/dL 11/12/2023 9:[address] [facility] Blood VENOUS BLOOD / Unknown 11/11/2023 14:28 EDT 11/11/2023 22:25 EDT Provider Outr Resulting Lab CHEMISTRY & BLOOD GAS ORDERABLES [facility] [address], [place] [id number] * YOJANA ANTIBODY PANEL (11/11/2023 14:28 EDT) Ro52 Anitbody, IgG <2.3 <20.0 CU 2023 12:[address] [facility] Comment:Results were obtaine d with the Agent PandaA Flash Ro52 chemiluminescent immunoassay. Values obtained with different manufacturers' assay methods must not be used interchangeably. Ro60 Antibody, IgG <7.0 <20.0 CU 2023 12:[address] [facility] Comment:Results were obtaine d with the Agent PandaA Flash Ro60 chemiluminescent immunoassay. Values obtained with different manufacturers' assay methods must not be used interchangeably. SSB Antibody, IgG <3.3 <20.0 CU 024 12:[address] [facility] Comment:Results were obtaine d with the RingTu Flash SS-B chemiluminescent immunoassay. Values obtained with different manufacturers' assay methods must not be used interchangeably. SM (Bailey) Antibody, IgG <8.0 <20.0 CU 11/16/2023 12:[address] [facility] Comment:Results were obtaine d with the Agent PandaA Flash Sm chemiluminescent immunoassay. Values obtained with different manufacturers' assay methods must not be used interchangeably. PUBLIC RELATIONS WRITER Antibody, IgG <6.0 <20.0 CU 024 12:[address] [facility] Comment:Results were obtaine d with the Agent PandaA Flash PUBLIC RELATIONS WRITER chemilumenscent immunoassay. Values obtained with different manufacturers' assay methods may not be used interchangeably. Blood VENOUS BLOOD / Unknown 11/11/2023 14:28 EDT 11/11/2023 22:25 EDT Provider Outr Resulting Lab IMMUNOLOGY A ND SEROLOGY ORDERABLES Performing Organization Address [facility] Co de Phone Number [facility] [address], [place] [id number] * (ABNORMAL) ANTI NUCLEAR AB (WEN), IFA (11/11/2023 14:28 EDT) WEN Interpretation Positive(A) Negative 11/12/2023 14:[address] [facility] Comment: For titers greater than or equal to 1:160 (except the centromere and nucleolar patterns) it is recommended that specific follow-up autoantibody testing ??(such as for dsDNA and Extractable Nuclear Antigens) be performed on all diffuse and/or speckled patterns NOTE: For add-on testing dsDNA is stable for 7 days refrigerated while Extractable Nuclear Antigens are only stable for 48 hours refrigerated. WEN Titer and Pattern 1 1:640 Homogeneous 11/12/2023 14:[address] [facility] Blood VENOUS BLOOD / Unknown 11/11/2023 14:28 EDT 11/11/2023 22:[address] [facility] - 11/12/2023 14:27 EDT Results were obtained with the INOVA NOVA Lite HEp-2 WEN Kit by indirect immunofluorescence. Provider Outr Resulting Lab IMMUNOLOGY A ND SEROLOGY ORDERABLES Performing Organization Address [facility] de Phone Number [facility] [address] [place], [place] [address] documented in this encounter Visit Diagnoses Not on filedocumented in this encounter Care Teams Bicycle Service Technician Relationship Specialty Start Date End Date Anil Mcwilliams MD [address] [place] [address] PCP - General 08/15/10 documented as of this encounter
--- OUTSIDE RECORDS SUMMARY | 2024-03-08 03:06 | XMS_ITS | Encounter Summary ---
Author Organization [facility] Address [address] [place] [address] Care Team Providers Care Tool Dispatcher Name Role Phone Anil Mcwilliams MD Primary Care Provider [phone] Encounter Details Date Type Department Care Team (Late st Contact Info) Description 03/03/2022 Lab Requisition [facility] Pathology & Laboratory Medicine - [facility] [address] [place] [address] Outr Resulting Lab, Provider Social History Tobacco [...] Associated Diagnosis Comments PSA TOTAL, DIAGNOSTIC Routine 03/03/2022 10:10 EDT documented in this encounter Results * PSA TOTAL, DIAGNOSTIC (03/03/2022 10:10 EDT) PSA 6.4 <=6.5 ng/mL 03/03/2022 18:[address] [facility] Blood VENOUS BLOOD / Unknown 03/03/2022 10:10 EDT 03/03/2022 17:25 EDT [address] [facility] - 03/03/2022 18:55 EDT NOTE: Serum PSA concentration should not be interpreted as absolute evidence for the presence or absence of malignant disease. Assayed on Siemens ADVIA [employer] XPT using chemiluminescent technology.??Values obtained by using different assay methods cannot be used interchangeably. Provider Outr Resulting Lab CHEMISTRY & BLOOD GAS ORDERABLES [facility] [address] [place] [address] documented in this encounter Visit Diagnoses Not on filedocumented in this encounter Care Teams Tool Dispatcher Relationship Specialty Start Date End Date Anil Mcwilliams MD [address] [place] [id number] PCP - General 08/15/10 documented as of this encounter
--- OUTSIDE RECORDS SUMMARY | 2024-03-08 03:06 | XMS_ITS | Encounter Summary ---
Author Organization [facility] Address [facility] [place] [place] [address] Care Team Providers Care Traffic Assistant Name Role Phone Anil Mcwilliams MD Primary Care Provider [phone] Encounter Details Date Type Department Care Team (Late st Contact Info) Description 09/03/2010 12:00 PM EST Office Visit [place] [address] Hemal Bustillo MD [facility] [place] [address] Discharge Disposition: Home Social History Tobacco Use Types Packs/Day Years Used Date Smoking Tobacco: Never Assessed Sex and Gender Information Value Date Recorded Sex Assigned at Not on file Gender Identity Not on file Sexual Orientation Not on file documented as of this encounter Plan of Treatment Not on file documented as of this encounter Visit Diagnoses Not on filedocumented in this encounter Care Teams Traffic Assistant Relationship Specialty Start Date End Date Anil Mcwilliams MD [address] [place] [address] PCP - General 06/17/10 documented as of this encounter
--- OUTSIDE RECORDS SUMMARY | 2024-03-08 03:06 | XMS_ITS | Encounter Summary ---
Author Organization [facility] Address [address] [place] [address] Care Team Providers Care Claim Adjuster Name Role Phone Anil Mcwilliams MD Primary Care Provider [phone] Encounter Details Date Type Department Care Team (Latest Contact Info) Description 12/08/2013 15:13 EDT - 12/08/2013 23:59 EDT Hospital Encounter [address] [address] Unknown, Provider, Discharge Disposition: Home or Self Care Social History Tobacco Use Types Packs/Day Years Used Date Smoking Tobacco: Never Assessed Sex and Gender Information Value Date Recorded Sex Assigned at Not on file Gender Identity Not on file Sexual Orientation Not on file documented as of this encounter Discharge Disposition Disposition Code Departure Means Destination Home or Self Senior Care documented in this encounter Plan of Treatment Not on file documented as of this encounter Visit Diagnoses Not on filedocumented in this encounter Care Teams Claim Adjuster Relationship Specialty Start Date End Date Anil Mcwilliams MD [address] [place] [address] PCP - General 08/15/10 documented as of this encounter
--- OUTSIDE RECORDS SUMMARY | 2024-03-08 03:06 | XMS_ITS | Encounter Summary ---
Author Organization [facility] Address [address] [place] [address] Care Team Providers Care Database Marketing Manager Name Role Phone Anil Mcwilliams MD Primary Care Provider [phone] Encounter Details Date Type Department Care Team (Late st Contact Info) Description 01/01/2023 Lab Requisition [facility] - Main [place] [address] [place] [phone] Ortiz Daniel MD [address] [place] [phone] Indeterminate colitis Social History Tobacco Use Types Packs/Day Years Used Date Smoking Tobacco: Never Assessed Sex and Gender Information Value Date Recorded Sex Assigned at Not on file Gender Identity Not on file Sexual Orientation Not on file documented as of this encounter Plan of Treatment Not on file documented as of this encounter Procedures Procedure Name Priority Date/Time Associated Diagnosis Comments SURGICAL PATHOLOGY Today 12/31/2022 8:38 EDT documented in this encounter Results * SURGICAL PATHOLOGY (12/31/2022 8:38 EDT) Note to Patient The following pathology results have been interpreted by your pathologist and may be available to you before your health provider has had the opportunity to review them. Please allow time for your provider to receive these results and explore management options, if applicable. 01/04/2023 15:[address] [facility] Final Diagnosis A. COLON, CECUM, BIOPSY: - Colonic mucosa with no significant histopathologic abnormalities. B. COLON, ASCENDING, BIOPSIES: - Colonic mucosa with patchy, mild architectural disarray and no other significant histopathologic abnormalities. C. COLON, TRANSVERSE, BIOPSIES: - Colonic mucosa with patchy, mild architectural disarray and no other significant histopathologic abnormalities. D. COLON, DESCENDING, BIOPSIES: - Colonic mucosa with no significant histopathologic abnormalities. E. COLON, SIGMOID, POLYP: - Fragments of granulation tissue polyp. F. COLON, SIGMOID, POLYP: - Fragments of granulation tissue polyp. G. COLON, SIGMOID, ADJACENT TO POLYPS, BIOPSY: - Colonic mucosa with no significant histopathologic abnormalities. H. COLON, DISTAL SIGMOID, BIOPSY: - Colonic mucosa with no significant histopathologic abnormalities. I. RECTUM, BIOPSY: - Colonic mucosa with no significant histopathologic abnormalities. 01/04/2023 15:58 [facility] Attestation By the signature below, the attending physician certifies that they have 1) personally conducted a gross and/or microscopic examination of the described specimen(s), and/or personally interpreted the results of laboratory testing of the described specimen(s), and 2) personally rendered or confirmed the above diagnosis. 01/04/2023 15:58 [facility] at 1558 Clinical History screening 01/04/2023 15:58 [facility] Gross Description A. Received in formalin labeled ? Ashkan L. Mejia? and cecum BXs? is a single mucosal tissue fragment measuring 0.5 x 0.2 x 0.1 cm. Entirely submitted in A1. B. Received in formalin labeled ? Ashkan L. Mejia? and ? ascending colon BXs? are 2 mucosal tissue fragments measuring 0.2 x 0.1 x 0.1 cm and 0.3 x 0.2 x 0.1 cm. Entirely submitted in B1. C. Received in formalin labeled ? Ashkan L. Mejia? and ? transverse colon BXs? are 3 mucosal tissue fragments ranging in size from 0.2 x 0.1 x 0.1 cm up to 0.3 x 0.1 x 0.1 cm. Entirely submitted in C1. D. Received in formalin and labeled Ashkan L. Mejia? and ? descending colon BXs? are 2 mucosal tissue fragments measuring 0.2 x 0.2 x 0.1 cm and 0.3 x 0.2 x 0.1 cm. Entirely submitted in D1. E. Received in formalin labeled ? Ashkan L. Mejia? and ? sigmoid colon? are 4 mucosal tissue fragments ranging in size from 0.2 x 0.2 x 0.1 cm up to 0.8 x 0.3 x 0.3 cm. Entirely submitted in E1. F. Received in formalin labeled ? Ashkan L. Mejia? and ? sigmoid polyp? are 2 mucosal tissue fragments measuring 0.1 cm and 0.2 x 0.2 x 0.1 cm. Entirely submitted in F1. G. Received in formalin labeled ? Ashkan L. Mejia? and ? sigmoid colon adjacent to polyps? is a single mucosal tissue fragment measuring 0.4 x 0.2 x 0.2 cm. Entirely submitted in G1. H. Received in formalin labeled ? Ashkan L. Mejia? and ? distal sigmoid colon Bx? is a single mucosal tissue fragment measuring 0.3 x 0.2 x 0.1 cm. Entirely submitted in H1. I. Received in formalin labeled ? Ashkan L. Mejia? and open quote rectum BXs? is a single mucosal tissue fragment measuring 0.2 x 0.2 x 0.1 cm. Entirely submitted in I1. AKIRA ADKINS 01/01/2023 13:22 01/04/2023 15:[address] [facility] Performing Lab [facility] 06/2023 15:[address] [facility] Scanned Images 01/04/2023 15:[address] [facility] Tissue ENTIRE RECTUM / Unknown 12/31/2022 8:38 EDT 01/01/2023 10:02 EDT Tissue specimen (specimen) ASCENDING COLON STRUCTURE / Unknown 12/31/2022 8:38 EDT 01/01/2023 10:02 EDT Tissue specimen (specimen) TRANSVERSE COLON STRUCTURE / Unknown 12/31/2022 8:38 EDT 01/01/2023 10:02 EDT Tissue specimen (specimen) DESCENDING COLON STRUCTURE / Unknown 12/31/2022 8:38 EDT 01/01/2023 10:02 EDT Tissue specimen (specimen) SIGMOID COLON STRUCTURE / Unknown 12/31/2022 8:38 EDT 01/01/2023 10:02 EDT Tissue specimen (specimen) SIGMOID COLON STRUCTURE / Unknown 12/31/2022 8:38 EDT 01/01/2023 10:02 EDT Tissue specimen (specimen) SIGMOID COLON STRUCTURE / Unknown 12/31/2022 8:38 EDT 01/01/2023 10:02 EDT Tissue specimen (specimen) SIGMOID COLON STRUCTURE / Unknown 12/31/2022 8:38 EDT 01/01/2023 10:02 EDT Tissue specimen (specimen) ENTIRE RECTUM / Unknown 12/31/2022 8:38 EDT 01/01/2023 10:02 EDT Ortiz Daniel MD PATHOLOGY ORD ERABLES [facility] [address] [place] [address] documented in this encounter Visit Diagnoses Diagnosis Indeterminate colitis Other and unspecified noninfectious gastroenteritis and colitis documented in this encounter Care Teams Database Marketing Manager Relationship Specialty Start Date End Date Anil Mcwilliams MD [address] [place] [address] PCP - General 08/15/10 documented as of this encounter
--- OUTSIDE RECORDS SUMMARY | 2024-03-08 03:06 | XMS_ITS | Encounter Summary ---
Author Organization [facility] Address [facility] [place] [address] Care Team Providers Care Wheel Worker Name Role Phone Anil Mcwilliams MD Primary Care Provider [phone] Reason for Visit * Reason Onset Date Comments Medication Refill 10/21/2011 Encounter Details Date Type Department Care Team (Late st Contact Info) Description 10/21/2011 Refill [place] [address] Hemal Bustillo MD [facility] [place] [address] IBD (inflammatory bowel disease) (Primary Dx) Social History Tobacco Use Types Packs/Day Years Used Date Smoking Tobacco: Never Assessed Sex and Gender Information Value Date Recorded Sex Assigned at Not on file Gender Identity Not on file Sexual Orientation Not on file documented as of this encounter Plan of Treatment Not on file documented as of this encounter Visit Diagnoses Diagnosis IBD (inflammatory bowel disease)- Primary Other and unspecified noninfectious gastroenteritis and colitis documented in this encounter Care Teams Wheel Worker Relationship Specialty Start Date End Date Anil Mcwilliams MD [address] [place] [address] PCP - General 06/17/10 documented as of this encounter
--- OUTSIDE RECORDS SUMMARY | 2024-03-08 03:06 | XMS_ITS | Encounter Summary ---
Author Organization [facility] Address [address] [place] [address] Care Team Providers Care Customer Account Specialist Name Role Phone Anil Mcwilliams MD Primary Care Provider [phone] Encounter Details Date Type Department Care Team (Late st Contact Info) Description 12/08/2013 Results Only [facility] Laboratory Services - [facility] ([facility] [address], [place] [address] Chetan Drummond, [address] [facility] [address] [address] [place], [place] [id number] Social History Tobacco Use Types Packs/Day Years Used Date Smoking Tobacco: Never Assessed Sex and Gender Information Value Date Recorded Sex Assigned at Not on file Gender Identity Not on file Sexual Orientation Not on file documented as of this encounter Plan of Treatment Not on file documented as of this encounter Procedures Procedure Name Priority Date/Time Associated Diagnosis Comments SURGICAL PATHOLOGY Routine 12/08/2013 9:19 EDT documented in this encounter Results * SURGICAL PATHOLOGY (12/08/2013 9:19 EDT) Pathology Report: SURGICAL PATHOLOGY REPORT Reports generated via electronic interface contain original data; however they are lacking the format of the original report. Caution should be taken when reading/interpreti ng unformatted reports. Name: ? DINORAH JOE ? Accession #: ? [id number] ? : ? 1950 (Age: 63) ??M ? Collect Date: ? 12/08/2013 ? Location: ? [facility] ? Receive Date: ? 12/09/2013 ? Provider: CHETAN DRUMMOND DO Copy to: ANIL MCWILLIAMS MD ? Final Pathologic Diagnosis: A. TERMINAL ILEUM, BIOPSY: - ??Patchy chronic active enteritis. - ??Negative for dysplasia. B. COLON, ASCENDING, BIOPSY: - ??Patchy mildly active colitis. - ??Negative for dysplasia. C. COLON, TRANSVERSE, BIOPSY: - ??Patchy minimally active colitis. - ??Negative for dysplasia. D. COLON, DESCENDING, BIOPSY: - ??Colonic mucosa with no specific pathologic features. - ??Negative for dysplasia. E. COLON, SIGMOID BIOPSY: - ??Colonic mucosa with no specific pathologic features. - ??Negative for dysplasia. F. RECTUM, BIOPSY: - ??Colonic mucosa with no specific pathologic features. - ??Negative for dysplasia. Document reviewed and electronically signed by: LUIS F ROCHA MD Report ??Date: 12/14/2013 18:00 By the signature above, the attending physician certifies that he/she has personally conducted a gross and/or microscopic examination of the described specimens and rendered or confirmed the above diagnosis. Specimen(s) Received: A. ?Bx terminal ileum B. ? Bx ascending colon C. ? Bx transverse colon D. ? Bx descending colon E. ? Bx sigmoid F. ? Bx rectum Clinical History: H/O Crohn's Gross Description: A. ?Received in formalin labelled with proper patient identification (initials M, R) and 1. bx terminal ileum are two pink-khalil tissues (0.3 x 0.2 x 0.1 cm and 0.4 x 0.3 x 0.2 cm). Entirely submitted in A1. B. ?Received in formalin labelled with proper patient identification (initials M, R) and 2. bx ascending colon are two pink-khalil tissues (0.5 x 0.3 x 0.2 cm and 0.6 x 0.2 x 0.2 cm). Entirely submitted in B1. C. ?Received in formalin labelled with proper patient identification (initials M, R) and 3. bx transverse colon are three pink-khalil tissues (0.3 x 0.2 x 0.1 cm to 0.6 x 0.4 x 0.3 cm). Entirely submitted in C1. D. ?Received in formalin labelled with proper patient identification (initials M, R) and 4. bx descending colon are two pink-khalil tissues (0.3 x 0.3 x 0.2 cm and 0.5 x 0.4 x 0.2 cm). Entirely submitted in D1. E. ?Received in formalin labelled with proper patient identification (initials M, R) and 5. bx sigmoid are two pink-khalil tissues (0.8 x 0.2 x 0.1 cm and 0.9 x 0.3 x 0.1 cm). Entirely submitted in E1. F. ?Received in formalin labelled with proper patient identification (initials M, R) and 6. bx rectal are two pink-khalil tissues (averaging 0.3 x 0.2 x 0.2 cm). Entirely submitted in F1. Ivonne Gunter 12/11/2013 11:06 AM End of Report [facility] 12/08/2013 9:19 EDT 12/09/2013 9:19 EDT Chetan Drummond DO PATHOLOGY ORDER [facility] [address] [place] [address] documented in this encounter Visit Diagnoses Not on filedocumented in this encounter Care Teams Customer Account Specialist Relationship Specialty Start Date End Date Anil Mcwilliams MD [address] [place] [address] PCP - General 08/15/10 documented as of this encounter
--- OUTSIDE RECORDS SUMMARY | 2024-03-08 03:06 | XMS_ITS | Encounter Summary ---
Author Organization [facility] Address [facility] [place] [address] Care Team Providers Care Call Center Team Leader Name Role Phone Anil Mcwilliams MD Primary Care Provider [phone] Encounter Details Date Type Department Care Team (Late st Contact Info) Description 09/02/2004 [place] [address] Esvin Stephens MD [facility] [place] [address] Social History Tobacco Use Types Packs/Day Years Used Date Smoking Tobacco: Never Assessed Sex and Gender Information Value Date Recorded Sex Assigned at Not on file Gender Identity Not on file Sexual Orientation Not on file documented as of this encounter Plan of Treatment Not on file documented as of this encounter Procedures Procedure Name Priority Date/Time Associated Diagnosis Comments SURGICAL PATHOLOGY REPORT Routine 09/02/2004 3:21 PM EST documented in this encounter Results * Surgical Pathology Report (09/02/2004 3:21 PM EST) Surgical Pathology Report [id number] ? Location: The signing pathologist has (i) examined the relevant preparation(s) for the specimen(s) and (ii) rendered or confirmed the diagnosis(es). . ?Pathology Surgical Pathology Final Report Clinical Information Specimen Submitted: A - Prostate Bx: Right x 7. B - Prostate Bx: Left x 7. Clinical History: Elevated PSA. ??CD: Elevated PSA. Gross Description A - Labeled/Fixativ e: Labeled with the patient's name, medical record ?number and R; formalin. Qty/Size/Weight : ?Seven needle core biopsies, 0.7 cm, 1 cm, 1.3 cm, and ?four at 1.6 cm. ??Yellow-khalil tissue. Sections/Proces sing: ??(T3) B - Labeled/Fixativ e: Labeled with the patient's name, medical record ?number and L; formalin. Qty/Size/Weight : ?Seven needle core biopsies, 0.9 cm, 1.7 cm, 2.2 cm, ?1.3 cm, 1.4 cm, 1.4 cm, and three at 1.5 cm. Tissue Description: ?? Yellow-khalil tissue. Sections/Proces sing: ??(T3) ??aje/EJR Microscopic Description Slides reviewed, microscopic description not recorded. Diagnosis A - Prostate Bx: Right x 7; needle core biopsies: Negative for malignancy or high-grade PIN . B - Prostate Bx: Left x 7 needle core biopsies: Negative for malignancy or high-grade PIN CR-0 09/04/04 KO 09/04/04 Verified by: ? Amelia Romero MD ?Pathologist ?(Electronic Signature) The attending pathologist whose signature appears on this report has reviewed all diagnostic slides and has edited the gross and/or microscopic portion of the report in rendering the final pathologic diagnosis. [facility] 09/02/2004 3:21 PM EST Esvin Stephens MD PATHOLOGY/CYTOLOGY O RDERABLES [facility] documented in this encounter Visit Diagnoses Not on filedocumented in this encounter Care Teams Call Center Team Leader Relationship Specialty Start Date End Date Anil Mcwilliams MD [address] [place] [address] PCP - General 06/17/10 documented as of this encounter
--- OUTSIDE RECORDS SUMMARY | 2024-03-08 03:06 | XMS_ITS | Encounter Summary ---
Author Organization [facility] Address [facility] [place] [address] Care Team Providers Care Stationary Fireman Name Role Phone Anil Mcwilliams MD Primary Care Provider [phone] Encounter Details Date Type Department Care Team (Late st Contact Info) Description 08/22/2010 Orders Only Gastroenterology at [facility] [place] [address] Hemal Bustillo MD [facility] [place] [address] Social History Tobacco Use Types Packs/Day Years [...] Associated Diagnosis Comments SURGICAL PATHOLOGY REPORT Routine 08/22/2010 7:24 AM EST documented in this encounter Results * Surgical Pathology Report (08/22/2010 7:24 AM EST) Surgical Pathology Report [id number] ? Location: [facility] The signing pathologist has (i) examined the relevant preparation(s) for the specimen(s) and (ii) rendered or confirmed the diagnosis(es). . ?Pathology Surgical Pathology Final Report Clinical Information Specimen Submitted: CONSULTATION CASE A - 10 slides labeled [id number], collection date 08/13/10. [id number] Report to: [facility] Surgical Pathology Department [facility], [facility], 2nd Floor [address] [place], [place] ??[address] Gross Description [facility]'s ([facility]) pathology slide(s) are reviewed. ??Refer to Diagnosis and Specimen Submitted for specific case information. For the full text of the [facility] report(s) please refer to Non-DH Documentation Pathology in the Clinical Information System (CIS). Microscopic Description Slides reviewed, microscopic description not recorded. Diagnosis CONSULTATION CASE Endoscopic biopsies ([id number], collection date 08/13/10): A. Duodenal mucosal nodule - Lymphangiectasia. B. Gastric antrum - ?? Gastric antral gland mucosa with H. pylori gastritis. C. Gastric body - Gastric fundic gland mucosa with H. pylori gastritis. D. Terminal ileum - ?? Mildly active chronic nonspecific ileitis with focal erosion. E. Ascending colon - Moderately active chronic colitis. F. Transverse colon - ?? Mildly active chronic nonspecific colitis. G. Left colon - Mildly active chronic nonspecific colitis, patchy activity. H. Random rectum - Rectal mucosa within normal limits. Note: The histologic features of parts E, F, and G are suggestive of idiopathic inflammatory bowel disease. No dysplasia is seen. . Diagnosis CR-PX 08/28/10 AAS 08/28/10 Verified by: ? Yumiko Zarate MD ?Pathologist ?(Electronic Signature) The attending pathologist whose signature appears on this report has reviewed all diagnostic slides and has edited the gross and/or microscopic portion of the report in rendering the final pathologic diagnosis. [facility] 08/22/2010 7:24 AM EST Hemal Bustillo MD PATHOLOGY/CYTOLOGY O RDERABLES [facility] documented in this encounter Visit Diagnoses Not on filedocumented in this encounter Care Teams Stationary Fireman Relationship Specialty Start Date End Date Anil Mcwilliams MD [address] [place] [address] PCP - General 06/17/10 documented as of this encounter
--- OUTSIDE RECORDS SUMMARY | 2024-03-08 03:06 | XMS_ITS | Encounter Summary ---
Author Organization [facility] Address [address] [place] [address] Care Team Providers Care Cafeteria Operator Name Role Phone Anil Mcwilliams MD Primary Care Provider [phone] Encounter Details Date Type Department Care Team (Late st Contact Info) Description 09/25/2021 Lab Requisition [facility] Pathology & Laboratory Medicine - [facility] [address] [place] [address] Ortiz Daniel MD [address] [place] [id number] Other ulcerative colitis without complications ([facility]) ([facility]) Social History Tobacco Use Types Packs/Day Years Used Date Smoking Tobacco: Never Assessed Sex and Gender Information Value Date Recorded Sex Assigned at Not on file Gender Identity Not on file Sexual Orientation Not on file documented as of this encounter Plan of Treatment Not on file documented as of this encounter Procedures Procedure Name Priority Date/Time Associated Diagnosis Comments SURGICAL PATHOLOGY Today 09/24/2021 7: 40 EST Other ulcerative colitis without complications ([facility]) ([facility]) documented in this encounter Results * SURGICAL PATHOLOGY (09/24/2021 7:40 EST) Note to Patient The following pathology results have been interpreted by your pathologist and may be available to you before your health provider has had the opportunity to review them. Please allow time for your provider to receive these results and explore management options, if applicable. 09/29/2021 9:38 EST [facility] Final Diagnosis A. SMALL INTESTINE, TERMINAL ILEUM, BIOPSY: - Terminal ileum mucosa with no specific pathologic abnormalities B. COLON, CECUM, BIOPSY: - Cecum mucosa with no specific pathologic abnormalities C. COLON, ASCENDING, BIOPSY: - Colonic mucosa with no specific pathologic abnormalities D. COLON, TRANSVERSE, BIOPSY: - Colonic mucosa with no specific pathologic abnormalities E. COLON, DESCENDING, BIOPSY: - Colonic mucosa with no specific pathologic abnormalities F. COLON, SIGMOID, BIOPSY: - Minimally active chronic colitis G. COLON, SIGMOID, POLYP, BIOPSY: - Inflammatory polyp H. RECTUM, BIOPSY: - Quiescent colitis 09/29/2021 9:38 [facility] Diagnosis Comment There is no dysplasia in this biopsy series. 09/29/2021 9:38 [facility] Attestation There was significant resident/fellow involvement in the diagnostic evaluation of this case. By the signature below, the attending physician certifies that they have personally conducted a gross and/or microscopic examination of the described specimens and rendered or confirmed the above diagnosis. 09/29/2021 9:38 [facility] at 0938 Clinical History History of ulcerative colitis; clinical diagnosis code: K51.80 09/29/2021 9:38 [facility] Gross Description A. Received in formalin labelled with proper patient identification (initials M, R) and terminal ileum Bx is a pale khalil-white tissue (0.4 x 0.2 x 0.2 cm). Submitted intact in A1. B. Received in formalin labelled with proper patient identification (initials M, R) and cecum Bx is a pale khalil-white focally brown speckled tissue) 0.2 x 0.2 x 0.2 cm). Submitted intact in B1. C. Received in formalin labelled with proper patient identification (initials M, R) and ascending colon Bx is a pale khalil-white focally brown speckled tissue (0.4 x 0.2 x 0.2 cm). Submitted intact in C1. D. Received in formalin labelled with proper patient identification (initials M, R) and transverse colon Bx are three pale khalil-white focally brown speckled tissues (0.3 x 0.2 by less than 0 x 1 cm to 0.2 by less than 0.1 by less than 0.1 cm). Entirely submitted in D1. E. Received in formalin labelled with proper patient identification (initials M, R) and descending colon Bx is a pale khalil-white focally pinpoint brown tissue (0.3 x 0.2 x 0.2 cm). Submitted intact in E1. F. Received in formalin labelled with proper patient identification (initials M, R) and sigmoid colon Bx are two pale khalil-white tissues (0.2 x 0.2 x 0.1 cm and 0.2 x 0.2 by less than 0.1 cm). Entirely submitted in F1. G. Received in formalin labelled with proper patient identification (initials M, R) and pseudo sigmoid polyps Bx are two pale khalil-white focally brown speckled tissues (0.1 x 0.1 x 0.1 cm and 0.1 x 0.1 by less than 0.1 cm). Entirely submitted in G1. H. Received in formalin labelled with proper patient identification (initials M, R) and rectum Bx is a white focally brown speckled tissue (0.3 x 0.2 x 0.2 cm). Submitted intact in H1. Jose Adams 09/25/2021 10:52 09/29/2021 9:38 [facility] Resident/Ayan w: Isabella Obrien DO 09/29/2021 9:38 [facility] Performing Lab [facility] 09/29/2021 9:38 [facility] Scanned Images 09/29/2021 9:38 [facility] Tissue SPECIMEN FROM RECTUM / Unknown 09/24/2021 7:40 EST 09/25/2021 8:21 EST Tissue specimen (specimen) CECUM STRUCTURE / Unknown 09/24/2021 7:40 EST 09/25/2021 8:21 EST Tissue specimen (specimen) ASCENDING COLON STRUCTURE / Unknown 09/24/2021 7:40 EST 09/25/2021 8:21 EST Tissue specimen (specimen) TRANSVERSE COLON STRUCTURE / Unknown 09/24/2021 7:40 EST 09/25/2021 8:21 EST Tissue specimen (specimen) DESCENDING COLON STRUCTURE / Unknown 09/24/2021 7:40 EST 09/25/2021 8:21 EST Tissue specimen (specimen) SIGMOID COLON STRUCTURE / Unknown 09/24/2021 7:40 EST 09/25/2021 8:21 EST Tissue specimen (specimen) SIGMOID COLON STRUCTURE / Unknown 09/24/2021 7:40 EST 09/25/2021 8:21 EST Tissue specimen (specimen) SPECIMEN FROM RECTUM / Unknown 09/24/2021 7:40 EST 09/25/2021 8:21 EST Ortiz Daniel MD PATHOLOGY ORD ERABLES [facility] [address] [place] [address] documented in this encounter Visit Diagnoses Diagnosis Other ulcerative colitis without complications ([facility]) documented in this encounter Care Teams Cafeteria Operator Relationship Specialty Start Date End Date Anil Mcwilliams MD [address] [place] [id number] PCP - General 08/15/10 documented as of this encounter
--- OUTSIDE RECORDS SUMMARY | 2024-03-08 03:06 | XMS_ITS | Encounter Summary ---
Author Organization [facility] Address [address] [place] [address] Care Team Providers Care Vehicle Operator Name Role Phone Anil Mcwilliams MD Primary Care Provider Encounter Details Date Type Department Care Team (Late st Contact Info) Description 09/02/2022 Lab Requisition [facility] Pathology & Laboratory Medicine - [facility] [address], [place] [id number] Outr Resulting Lab, Provider Social History Tobacco [...] Associated Diagnosis Comments PSA TOTAL, DIAGNOSTIC Routine 09/02/2022 11:46 EST documented in this encounter Results * (ABNORMAL) PSA TOTAL, DIAGNOSTIC (09/02/2022 11:46 EST) PSA 7.9(H) <=6.5 ng/mL 09/02/2022 22:51 EST [facility] Blood VENOUS BLOOD / Unknown 09/02/2022 11:46 EST 09/02/2022 21:46 EST Narrative [facility] - 09/02/2022 22:51 EST NOTE: Serum PSA concentration should not be interpreted as absolute evidence for the presence or absence of malignant disease. Assayed on Siemens ADVIA Celsenseaur XPT using chemiluminescent technology.??Values obtained by using different assay methods cannot be used interchangeably. Provider Outr Resulting Lab CHEMISTRY & BLOOD GAS ORDERABLES [facility] [address] [place] [address] documented in this encounter Visit Diagnoses Not on filedocumented in this encounter Care Teams Vehicle Operator Relationship Specialty Start Date End Date Anil Mcwilliams MD [address] [place] [id number] PCP - General 08/15/10 documented as of this encounter
--- OUTSIDE RECORDS SUMMARY | 2024-03-08 03:06 | XMS_ITS | Encounter Summary ---
Author Organization [facility] Address [address] [place] [address] Care Team Providers Care Circuits Engineer Name Role Phone Anil Mcwilliams MD Primary Care Provider [phone] Encounter Details Date Type Department Care Team (Late st Contact Info) Description 03/15/2023 Lab Requisition [facility] Pathology & Laboratory Medicine - [facility] [address] [place] [address] Dex Suresh MD [address] [place] [address] Encounter for other general examination Social History Tobacco Use Types Packs/Day Years Used Date Smoking Tobacco: Never Assessed Sex and Gender Information Value Date Recorded Sex Assigned at Not on file Gender Identity Not on file Sexual Orientation Not on file documented as of this encounter Plan of Treatment Not on file documented as of this encounter Procedures Procedure Name Priority Date/Time Associated Diagnosis Comments SURGICAL PATHOLOGY Today 03/15/2023 8:30 EDT documented in this encounter Results * SURGICAL PATHOLOGY (03/15/2023 8:30 EDT) Note to Patient The following pathology results have been interpreted by your pathologist and may be available to you before your health provider has had the opportunity to review them. Please allow time for your provider to receive these results and explore management options, if applicable. 03/17/2023 10:21 EDT [facility] Final Diagnosis A. SIGMOID COLON, BIOPSY: - Inflammatory polyp with reactive glandular changes. 03/17/2023 10:21 EDT [facility] Attestation By the signature below, the attending physician certifies that they have 1) personally conducted a gross and/or microscopic examination of the described specimen(s), and/or personally interpreted the results of laboratory testing of the described specimen(s), and 2) personally rendered or confirmed the above diagnosis. 03/17/2023 10:21 [facility] at 1021 Clinical History Sigmoid polyp 03/17/2023 10:21 [facility] Gross Description A. Received in formalin labelled with proper patient identification (initials M, R) and sigmoid polyp is a khalil-brown polypoid tissue received in 2 fragments (1.0 x 0.4 x 0.4 cm and 1.3 x 0.7 x 0.6 cm). The fragments are sectioned and submitted entirely in A1 and A2. ENMANUEL HANSEN([facility]) 03/16/2023 9:44 03/17/2023 10:21 [facility] Performing Lab [facility] 03/17/2023 10:21 [facility] Scanned Images 03/17/2023 10:21 [facility] Tissue SIGMOID COLON STRUCTURE / Unknown 03/15/2023 8:30 EDT 03/16/2023 8:09 EDT Dex Suresh MD PATHOLOGY ORDERA LEOBARDO [facility] [address] [place] [address] documented in this encounter Visit Diagnoses Diagnosis Encounter for other general examination documented in this encounter Care Teams Circuits Engineer Relationship Specialty Start Date End Date Anil Mcwilliams MD [address] [place] [id number] PCP - General 08/15/10 documented as of this encounter
--- OUTSIDE RECORDS SUMMARY | 2024-03-08 03:06 | XMS_ITS | Encounter Summary ---
Author Organization [facility] Address [address] [place] [address] Care Team Providers Care Aml Analyst Name Role Phone Anil Mcwilliams MD Primary Care Provider [phone] Encounter Details Date Type Department Care Team (Late st Contact Info) Description 08/12/2011 Historical Results Only [facility] - Main [address] [address] Brooks Rodriguez MD [address] [place] [address] Social History Tobacco Use Types Packs/Day Years Used Date Smoking Tobacco: Never Assessed Sex and Gender Information Value Date Recorded Sex Assigned at Not on file Gender Identity Not on file Sexual Orientation Not on file documented as of this encounter Plan of Treatment Not on file documented as of this encounter Procedures Procedure Name Priority Date/Time Associated Diagnosis Comments SURGICAL PATHOLOGY Routine 08/12/2011 documented in this encounter Results * SURGICAL PATHOLOGY (08/12/2011) 08/12/2011 08/12/2011 9:5 9 EST Narrative [facility] - 08/14/2011 13:17 EST ----- ------- Name: DINORAH JOE ? : 46 ?Age/Sex: 69/M ?Unit#: [id number] ? Loc: SDS ? Status: DEP SDC ?? Reg Date: 08/12/11 ? Pt.Phone Number: ? ----- ------- Specimen: [id number] ?STATUS: SOUT ?Spec Date:08/12/11 ? Physician Copies: ?Brooks Rodriguez ?? Tissues: A ?? Male Reproductive System (PROSTATE,RIGHT BASE) ? Anil Mcwilliams ? B ?? Male Reproductive System (PROSTATE,RIGHT MID LATERAL) ? C ?? Male Reproductive System (PROSTATE,RIGHT MID MEDIAL) ? D ?? Male Reproductive System (PROSTATE,RIGHT LAT APEX) ? E ?? Male Reproductive System (PROSTATE,RIGHT MED APEX) ? F ?? Male Reproductive System (PROSTATE,LEFT BASE) ? G ?? Male Reproductive System (PROSTATE,LEFT LAT MID) ? H ?? Male Reproductive System (PROSTATE,LEFT MED MID) ? I ?? Male Reproductive System (PROSTATE,LEFT LAT APEX) ? J ?? Male Reproductive System (PROSTATE,LEFT MED APEX) ? CPT: 17662 ?? Units: 10 ?FINAL DIAGNOSIS ? A. ??Prostate, right base, core needle biopsy; ? - Benign prostatic tissue. ? B. ??Prostate, right lateral mid, core needle biopsy; ? - Benign prostatic tissue. ? C. ??Prostate, right medial mid, core needle biopsy; ? - Benign prostatic tissue. ? D. ??Prostate, right lateral apex, core needle biopsy; ? - Benign prostatic tissue. ? E. ??Prostate, right medial apex, core needle biopsy; ? - Benign prostatic tissue. ? F. ??Prostate, left base, core needle biopsy; ? - Benign prostatic tissue. ? G. ??Prostate, left lateral mid, core needle biopsy; ? - Prostatic intraepithelial neoplasia (PIN), high grade features. ? H. ??Prostate, left medial mid, core needle biopsy; ? - Prostatic intraepithelial neoplasia (PIN), high grade features. ? I. ??Prostate, left lateral apex, core needle biopsy; ? - Benign prostatic tissue. ? J. ??Prostate, left medial apex, core needle biospy; ? - Benign prostatic tissue. ----- ------- ?COMMENT ? The biopsies show diffuse glandular atrophy along with areas of acute and chronic inflammation. ??Several foci of PIN are found, two of which probably are high grade. ??No malignancy identified. ----- ------- Patient: DINORAH JOE ? #[id number] ? (Continued) ----- ------- Specimen: [id number] ?Received: 08/12/11 ?(Continued) ? GROSS DESCRIPTION ? A. ??Received in [facility]in's labeled with the patient's name and right base is a ? are two filamentous tissue cores ranging from 0.7 to 1.4 cm long, e.s. ? B. ??Received in Bouin's labeled with the patient's name and right lateral mid ? is a filamentous tissue core measuring 1.5 cm long, e.s. ? C. ??Received in Bouin's labeled with the patient's name and right medial mid ? is a filamentous tissue core measuring 1.5 cm long, e.s. ? D. ??Received in Bouin's labeled with the patient's name and right lateral ? apex are two filamentous tissue cores ranging from 0.5 to 0.7 cm long, e.s. ? E. ??Received in Bouin's labeled with the patient's name and right medial apex ? is a filamentous tissue core measuring 1.5 cm long, e.s. ? F. ??Received in Bouin's labeled with the patient's name and left base ? are two filamentous tissue cores ranging from 0.8 to 1.5 cm long, e.s. ? G. ??Received in Bouin's labeled with the patient's name and left lateral mid ? is a filamentous tissue core measuring 1.2 cm long, e.s. ? H. ??Received in Bouin's labeled with the patient's name and left medial mid ? is a filamentous tissue core measuring 1.3 cm long, e.s. ? I. ??Received in Bouin's labeled with the patient's name and left lateral apex ? is a filamentous tissue core measuring 1.2 cm long, e.s. ? J. ??Received in Bouin's labeled with the patient's name and left medial apex ? is a filamentous tissue core measuring 1.5 cm long, e.s. ??CP ?? PREOP DX/CLINICAL HISTORY ?Elevated PSA. Signed ____(signature on file)____ Taylor Langley M.D. 08/14/11 By the signature above, the attending physician certifies that he/she has personally conducted a gross and/or microscopic examination of the described specimens and rendered or confirmed the above diagnosis. Test Performed by [facility], [address] [place], [place] [id number] Bilingual Trainer: Taylor Langley MD PHD ----- ------- Brooks Rodriguez MD PATHOLOGY ORDERABLES [facility] documented in this encounter Visit Diagnoses Not on filedocumented in this encounter Care Teams Aml Analyst Relationship Specialty Start Date End Date Anil Mcwilliams MD [address] [place] [id number] PCP - General 08/15/10 documented as of this encounter
--- OUTSIDE RECORDS SUMMARY | 2024-03-08 03:06 | XMS_ITS | Encounter Summary ---
Author Organization [facility] Address [address] [place] [address] Care Team Providers Care Throat Cutter Name Role Phone Anil Mcwilliams MD Primary Care Provider [phone] Encounter Details Date Type Department Care Team (Late st Contact Info) Description 09/05/2021 Lab Requisition [facility] Pathology & Laboratory Medicine - [facility] [address] [place], [place] [id number] Outr Resulting Lab, Provider Social History Tobacco [...] Associated Diagnosis Comments PSA TOTAL, DIAGNOSTIC Routine 09/05/2021 10:58 EST documented in this encounter Results * (ABNORMAL) PSA TOTAL, DIAGNOSTIC (09/05/2021 10:58 EST) PSA 7.5(H) 0.0 - 6.5 ng/mL 09/08/2021 9:28 EST [facility] Blood VENOUS BLOOD / Unknown 09/05/2021 10:58 EST 09/05/2021 21:47 EST Narrative [facility] - 09/08/2021 9:28 EST NOTE: Serum PSA concentration should not be interpreted as absolute evidence for the presence or absence of malignant disease. Assayed on Siemens ADVIA VitalTraxaur XPT using chemiluminescent technology.??Values obtained by using different assay methods cannot be used interchangeably. Provider Outr Resulting Lab CHEMISTRY & BLOOD GAS ORDERABLES [facility] [address] [place] [address] documented in this encounter Visit Diagnoses Not on filedocumented in this encounter Care Teams Throat Cutter Relationship Specialty Start Date End Date Anil Mcwilliams MD [address] [place] [id number] PCP - General 08/15/10 documented as of this encounter
--- OUTSIDE RECORDS SUMMARY | 2024-03-08 03:06 | XMS_ITS | Encounter Summary ---
Author Organization [facility] Address [address] [place] [address] Care Team Providers Care Stunner Animal Name Role Phone Anil Mcwilliams MD Primary Care Provider [phone] Encounter Details Date Type Department Care Team (Late st Contact Info) Description 10/12/2020 Lab Requisition [facility] Pathology & Laboratory Medicine - [facility] [address] [place] [address] Ortiz Daniel MD [address] [place] [phone] Encounter for screening for malignant neoplasm of colon; Diarrhea, unspecified; Melena; Personal history of other infectious and parasitic diseases Social History Tobacco Use Types Packs/Day Years Used Date Smoking Tobacco: Never Assessed Sex and Gender Information Value Date Recorded Sex Assigned at Not on file Gender Identity Not on file Sexual Orientation Not on file documented as of this encounter Plan of Treatment Not on file documented as of this encounter Procedures Procedure Name Priority Date/Time Associated Diagnosis Comments SURGICAL PATHOLOGY Today 10/11/2020 9:29 EDT Encounter for screening for malignant neoplasm of colon Diarrhea, unspecified Melena Personal history of other infectious and parasitic diseases documented in this encounter Results * SURGICAL PATHOLOGY (10/11/2020 9:29 EDT) Final Diagnosis A. COLON, DESCENDING, BIOPSY: - Mild to moderate active chronic colitis. - Negative for dysplasia. B. COLON, SIGMOID, BIOPSY: - Mild to moderate active chronic colitis. - Negative for dysplasia. C. 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 - Negative for dysplasia. 10/15/2020 12:01 [facility] Attestation By the signature below, the attending physician certifies that they have 1) personally conducted a gross and/or microscopic examination of the described specimen(s), and/or personally interpreted the results of laboratory testing of the described specimen(s), and 2) personally rendered or confirmed the above diagnosis. 10/15/2020 12:01 [facility] at 1200 Clinical History HX Crohn's; clinical diagnosis code: Z12.11; R19.7; K92.1; Z86.19 10/15/2020 12:01 [facility] Gross Description A. Received in formalin labelled with proper patient identification (initials M, R) and descending colon Bx is a single fragment of khalil soft tissue (0.2 x 0.2 x 0.2 cm). The specimen is entirely submitted in A1. B. Received in formalin labelled with proper patient identification (initials M, R) and sigmoid colon Bx is a single fragment of khalil soft tissue (0.2 x 0.2 x 0.2 cm). The specimen is entirely submitted in B1. C. Received in formalin labelled with proper patient identification (initials M, R) and rectum Bx is a single fragment of khalil-duff soft tissue (0.3 x 0.2 x 0.2 cm). The specimen is entirely submitted in C1. ENMANUEL STEIN(ASCP) 10/14/2020 8:23 10/15/2020 12:01 [facility] Performing Lab [facility] 10/15/2020 12:01 [facility] Scanned Images 10/15/2020 12:01 [facility] Tissue SPECIMEN FROM RECTUM / Unknown 10/11/2020 9:29 EDT 10/12/2020 7:47 EDT Tissue specimen (specimen) SIGMOID COLON STRUCTURE / Unknown 10/11/2020 9:29 EDT 10/12/2020 7:47 EDT Tissue specimen (specimen) SPECIMEN FROM RECTUM / Unknown 10/11/2020 9:29 EDT 10/12/2020 7:47 EDT Ortiz Daniel MD PATHOLOGY ORD ERABLES [facility] [address] [place] [address] documented in this encounter Visit Diagnoses Diagnosis Encounter for screening for malignant neoplasm of colon Special screening for malignant neoplasms, colon Diarrhea, unspecified Melena Blood in stool Personal history of other infectious and parasitic diseases documented in this encounter Care Teams Stunner Animal Relationship Specialty Start Date End Date Anil Mcwilliams MD [address] [place] [address] PCP - General 08/15/10 documented as of this encounter
--- OUTSIDE RECORDS SUMMARY | 2024-03-08 03:06 | XMS_ITS | Encounter Summary ---
Author Organization [facility] Address [address] [place] [address] Care Team Providers Care Urology Teacher Name Role Phone Anil Mcwilliams MD Primary Care Provider [phone] Encounter Details Date Type Department Care Team (Late st Contact Info) Description 11/08/2020 Lab Requisition [facility] Pathology & [facility] [address] [place], [place] [id number] Outr Resulting Lab, Provider Social History Tobacco [...] Associated Diagnosis Comments PSA TOTAL, DIAGNOSTIC Routine 11/08/2020 8:16 EDT documented in this encounter Results * (ABNORMAL) PSA TOTAL, DIAGNOSTIC (11/08/2020 8:16 EDT) PSA 8.0(H) 0.0 - 6.5 ng/mL 11/08/2020 21:52 EDT [facility] Blood VENOUS BLOOD / Unknown 11/08/2020 8:16 EDT 11/08/2020 21:06 EDT Narrative [facility] - 11/08/2020 21:52 EDT NOTE: Serum PSA concentration should not be interpreted as absolute evidence for the presence or absence of malignant disease. Assayed on Siemens ADVIA SinColaaur XPT using chemiluminescent technology.??Values obtained by using different assay methods cannot be used interchangeably. Provider Outr Resulting Lab CHEMISTRY & BLOOD GAS ORDERABLES [facility] [address] [place] [address] documented in this encounter Visit Diagnoses Not on filedocumented in this encounter Care Teams Urology Teacher Relationship Specialty Start Date End Date Anil Mcwilliams MD [address] [place] [address] PCP - General 08/15/10 documented as of this encounter
--- OUTSIDE RECORDS SUMMARY | 2024-03-08 03:06 | XMS_ITS | Encounter Summary ---
Author Organization Formerly [facility] Address [facility] [place] [address] Care Team Providers Care Cyber Security Architect Name Role Phone Anil Mcwilliams MD Primary Care Provider [phone] Encounter Details Date Type Department Care Team (Late st Contact Info) Description 08/22/2010 Orders Only Gastroenterology at [facility] [place] [address] Raj Bustillo MD [facility] [place] [place] [address] Social History Tobacco Use Types Packs/Day Years [...] EST documented in this encounter Results * PATHOLOGY SURGICAL PATHOLOGY FINAL REPORT (08/22/2010 7:24 AM EST) Surgical Pathology Report ? [facility] ? Provider: ?? RAJ BUSTILLO ?Pt. Name: ?? DINORAH JOE ? Acc #: ?[id number] ?Pt. ? Col Date: ?? 08/22/2010 ? /Sex: ?1950,(60 years),Male ? Rec Date: ?? 08/28/2010 ?LOC: ?OPW ? SURGICAL PATHOLOGY ? ---Pathologic Diagnosis--- ? CONSULTATION CASE ? Endoscopic biopsies ([id number], collection date 08/13/10): ? A. Duodenal mucosal nodule - Lymphangiectasia. ? B. Gastric antrum - Gastric antral gland mucosa with H. pylori gastritis. ? C. Gastric body - Gastric fundic gland mucosa with H. pylori gastritis. ? D. Terminal ileum - Mildly active chronic nonspecific ileitis with focal ? erosion. ? E. Ascending colon - Moderately active chronic colitis. ? F. Transverse colon - Mildly active chronic nonspecific colitis. ? G. Left colon - Mildly active chronic nonspecific colitis, patchy ? activity. ? H. Random rectum - Rectal mucosa within normal limits. ? Note: The histologic features of parts E, F, and G are suggestive of ? idiopathic inflammatory bowel disease. No dysplasia is seen. ? CR-PX ? 08/28/10 ? AAS ? 08/28/10 Verified by: ? Yumiko Zarate MD ? Pathologist ? (Electronic Signature) ? The attending pathologist whose signature appears on this report has ? reviewed all diagnostic slides and has edited the gross and/or ? microscopic portion of the report in rendering the final pathologic ? diagnosis. ? ---Microscopic Description--- ? Slides reviewed, microscopic description not recorded. ? ---Gross Description--- ? [facility] ([facility]) pathology slide(s) are reviewed. ??Refer ? to Diagnosis and Specimen Submitted for specific case information. ? [facility] ? Provider: ?? RAJ BUSTILLO ?Pt. Name: ?? DINORAH JOE ? Acc #: ?[id number] ?Pt. ? Col Date: ?? 08/22/2010 ? /Sex: ?1950,(60 years),Male ? Rec Date: ?? 08/28/2010 ?LOC: ?OPW ? SURGICAL PATHOLOGY ? For the full text of the [facility] report(s) please refer to Non-DH ? Documentation Pathology in the Clinical Information System (CIS). ? ---Clinical Information--- ? Specimen Submitted: ? CONSULTATION CASE ? A - 10 slides labeled [id number], collection date 08/13/10. ? [id number] ? Report to: ? [facility] ? Surgical Pathology Department ? [facility], 2nd Floor ? [address] [place] [address] ? [place], [place] ??[address] ? VIBHA ANTONIOIUM 08/22/2010 7:24 AM EST Raj Bustillo MD PATHOLOGY/CYTOLOGY O RDERABLES VIBHA ANTONIOIUM documented in this encounter Visit Diagnoses Not on filedocumented in this encounter Care Teams Cyber Security Architect Relationship Specialty Start Date End Date Anil Mcwilliams MD [address] [place] [address] PCP - General 06/17/10 documented as of this encounter
--- OUTSIDE RECORDS SUMMARY | 2024-03-08 03:06 | XMS_ITS | Encounter Summary ---
Author Organization [facility] Address [facility] [place] [address] Care Team Providers Care Die Attacher Name Role Phone Anil Mcwilliams MD Primary Care Provider [phone] Reason for Visit * Reason Comments Crohn's Disease Encounter Details Date Type Department Care Team (Late st Contact Info) Description 12/03/2010 11:30 AM EDT [place] [id number] Hemal Bustillo MD [facility] [place] [address] Crohn's (Primary Dx) Discharge Disposition: Home Social History Tobacco Use Types Packs/Day Years Used Date Smoking Tobacco: Never Assessed Sex and Gender Information Value Date Recorded Sex Assigned at Not on file Gender Identity Not on file Sexual Orientation Not on file documented as of this encounter Last Filed Vital Signs Vital Sign Reading Time Taken Comments Blood Pressure 150/90 12/03/2010 11:46 AM EDT Pulse - - Temperature - - Respiratory Rate - - Oxygen Saturation - - Inhaled Oxygen Concentration - - Weight 75.8 kg (167 lb) 12/03/2010 11:46 AM EDT Height 181.6 cm (5' 11.5) 12/03/2010 11:46 AM E DT Body Mass Index 22.97 12/03/2010 11:46 AM EDT documented in this encounter Progress Notes * Hemal Bustillo MD - 12/03/2010 12:04 PM EDT I. Probable Crohn's disease involving ileum and ascending colon. A. Diagnosed on screening colonoscopy, essentially asymptomatic. B. Colonoscopy performed for screening, Dr. Galdamez, 08/13/10: cecal hyperemia, increased vascularity and edema, focal patches of mild inflammation in the ascending colon. Beefy appearance exudates. TI:erythematous, patchy tissue with exudates. 1. [place] [facility]. a. TI: mildly active, chronic, nonspecific ileitis with focal erosion. b. Ascending colon: moderately active, chronic colitis. c. Transverse colon: mildly active, chronic, nonspecific colitis. d. Left colon: mildly active, chronic, nonspecific colitis, patchy. e. Rectum: rectal mucosa within normal limits. C. Lialda initiated 09/05 II. H. pylori gastritis. III. GERD. Prilolsec 40 qd IV. BPH and urinary retention. Subjective: Currently doing well. Stools better formed on lialda. Tolerating this medication well. Gerd sx controlled on Omeprazole 40 qd ROS negative GEN: Healthy-appearing in no acute distress. Appears stated age. Cooperate and answers questions appropriately. SKIN: No rashes or abnormal lesions. NECK: No adenopathy and no thyromegaly. 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 LUNGS: Clear to auscultation bilaterally. COR: Regular, normal S1 and S2 without murmurs ABD: Normal active bowel sounds. Soft and non-distended. No tenderness to deep palpation in all 4 quadrants. No hepatosplenomegaly. EXT: No cyanosis, clubbing or edema. Impression: Asx Crohn's picked up on screening colonoscopy. Tolerating lialda. GERD sx well controlled, could try lowering his dose to 20 mg F/u one year. Check labs CBC and chem profile in fall, pcp williams 15 minutes of 25 minute office visit in direct face to face pt contact documented in this encounter Plan of Treatment Not on file documented as of this encounter Visit Diagnoses Diagnosis Crohn's- Primary Regional enteritis of unspecified site documented in this encounter Care Teams Die Attacher Relationship Specialty Start Date End Date Anil Mcwilliams MD [address] [place] [address] PCP - General 06/17/10 documented as of this encounter
--- OUTSIDE RECORDS SUMMARY | 2024-03-08 03:06 | XMS_ITS | Encounter Summary ---
Author Organization [facility] Address [address] [place] [address] Care Team Providers Care Terrazzo Laborer Name Role Phone Anil Mcwilliams MD Primary Care Provider [phone] Encounter Details Date Type Department Care Team (Late st Contact Info) Description 08/20/[address] [facility] Lab - Main [address] [address] Brooks Rodriguez MD [address] [place] [address] Social History Tobacco Use Types Packs/Day Years Used Date Smoking Tobacco: Never Assessed Sex and Gender Information Value Date Recorded Sex Assigned at Not on file Gender Identity Not on file Sexual Orientation Not on file documented as of this encounter Plan of Treatment Not on file documented as of this encounter Procedures Procedure Name Priority Date/Time Associated Diagnosis Comments SURGICAL PATHOLOGY Routine 08/20/2011 documented in this encounter Results * SURGICAL PATHOLOGY (08/20/2011) 08/20/2011 08/20/2011 14: 06 EST Narrative [facility] - 08/23/2011 15:13 EST ----- ------- Name: DINORAH JOE ? : [birth year] ?Age/Sex: 69/M ?Unit#: [id number] ? Loc: 2N ?Status: DIS Florencia ?? Reg Date: 08/20/11 ? Pt.Phone Number: ? ----- ------- Specimen: [id number] ?STATUS: SOUT ?Spec Date:08/20/11 ? Physician Copies: ?Brooks Rodriguez ?? Tissues: A ?? Male Reproductive System (PROSTATE CURETTINGS) ? Anil Mcwilliams ? CPT: 90533 ?? Units: ??1 ?FINAL DIAGNOSIS ? Prostate, transurethral resection; ? - Benign prostatic tissue including: ?- Glandular and stromal nodular hyperplasia. ?- Basal cell hyperplasia. ?- Chronic inflammation. ? GROSS DESCRIPTION ? Received in formalin labeled with the patient's name and prostate tissue are ? prostate chips aggregating approximately 37 grams, r.s. 5. CP ?? PREOP DX/CLINICAL HISTORY ?Benign prostatic hyperplasia. Signed ____(signature on file)____ Taylor Langley M.D. 08/23/11 By the signature above, the attending physician certifies that he/she has personally conducted a gross and/or microscopic examination of the described specimens and rendered or confirmed the above diagnosis. Test Performed by [facility], [address] [place] [address] Team Assembler: Taylor Langley MD PHD ----- ------- Brooks Rodriguez MD PATHOLOGY ORDERABLES Performing Organization Address [facility]/State/[facility] Co de Phone Number [facility] documented in this encounter Visit Diagnoses Not on filedocumented in this encounter Care Teams Terrazzo Laborer Relationship Specialty Start Date End Date Anil Mcwilliams MD [address] [place] [id number] PCP - General 08/15/10 documented as of this encounter
--- OUTSIDE RECORDS SUMMARY | 2024-03-08 03:06 | XMS_ITS | Encounter Summary ---
Author Organization [facility] Address [address] [place] [address] Care Team Providers Care Staff Rn Name Role Phone Anil Mcwilliams MD Primary Care Provider [phone] Encounter Details Date Type Department Care Team (Late st Contact Info) Description 04/05/2020 Lab Requisition [facility] Pathology & Laboratory Medicine - [facility] [address] [place] [address] Outr Resulting Lab, Provider Social [...] Associated Diagnosis Comments PSA TOTAL, DIAGNOSTIC Routine 04/05/2020 8:11 EDT documented in this encounter Results * (ABNORMAL) PSA TOTAL, DIAGNOSTIC (04/05/2020 8:11 EDT) PSA 9.0(H) 0.0 - 6.5 ng/mL 04/08/2020 11:12 EDT [facility] Blood VENOUS BLOOD / Unknown 04/05/2020 8:11 EDT 04/05/2020 17:28 EDT Narrative [facility] - 04/08/2020 11:12 EDT NOTE: Serum PSA concentration should not be interpreted as absolute evidence for the presence or absence of malignant disease. Assayed on Siemens ADVIA Blocaur XPT using chemiluminescent technology.??Values obtained by using different assay methods cannot be used interchangeably. Provider Outr Resulting Lab CHEMISTRY & BLOOD GAS ORDERABLES [facility] [address] [place] [address] documented in this encounter Visit Diagnoses Not on filedocumented in this encounter Care Teams Staff Rn Relationship Specialty Start Date End Date Anil Mcwilliams MD [address] [place] [address] PCP - General 08/15/10 documented as of this encounter
--- OUTSIDE RECORDS SUMMARY | 2024-03-08 03:06 | XMS_ITS | Encounter Summary ---
Author Organization [facility] Address [facility] [place] [address] Care Team Providers Care Dry Plasterer Name Role Phone Anil Mcwilliams MD Primary Care Provider [phone] Encounter Details Date Type Department Care Team (Late st Contact Info) Description 05/30/2014 3:40 PM EST [place] [address] Hemal Bustillo MD [facility] [place] [address] Ulcerative colitis, unspecified (Primary Dx) Discharge Disposition: Home Social History Tobacco Use Types Packs/Day Years Used Date Smoking Tobacco: Former Sex and Gender Information Value Date Recorded Sex Assigned at Not on file Gender Identity Not on file Sexual Orientation Not on file documented as of this encounter Last Filed Vital Signs Vital Sign Reading Time Taken Comments Blood Pressure 147/69 05/30/2014 3:36 PM EST Pulse 80 05/30/2014 3:36 PM EST Temperature - - Respiratory Rate - - Oxygen Saturation - - Inhaled Oxygen Concentration - - Weight 78.1 kg (172 lb 3.2 oz) 05/30/2014 3:36 P M EST Height 182.9 cm (6') 05/30/2014 3:36 PM EST Body Mass Index 23.35 05/30/2014 3:36 PM EST documented in this encounter Progress Notes * Hemal Bustillo MD - 05/30/2014 4:25 PM EST I. Probable Crohn's disease involving ileum and ascending colon. A. Diagnosed on screening colonoscopy, essentially asymptomatic. B. Colonoscopy performed for screening, Dr. Galdamez 08/13/10: cecal hyperemia, increased vascularity and edema, focal patches of mild inflammation in the ascending colon. Beefy appearance exudates. TI:erythematous, patchy tissue with exudates. 1. Pathology reviewed at [facility]. a. TI: mildly active, chronic, nonspecific ileitis with focal erosion. b. Ascending colon: moderately active, chronic colitis. c. Transverse colon: mildly active, chronic, nonspecific colitis. d. Left colon: mildly active, chronic, nonspecific colitis, patchy. e. Rectum: rectal mucosa within normal limits. C. Lialda initiated 09/05 II. H. pylori gastritis. III. GERD. Prilolsec 40 qd IV. BPH and urinary retention. Subjective: Came off Lialda one year ago Had colo Dr Angel was normal No Sx Gerd sx controlled on Omeprazole 40 qd ROS negative GEN: Healthy-appearing in no acute distress. Appears stated age. Cooperate and answers questions appropriately. SKIN: No rashes or abnormal lesions. NECK: No adenopathy and no thyromegaly. 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 LUNGS: Clear to auscultation bilaterally. COR: Regular, normal S1 and S2 without murmurs ABD: Normal active bowel sounds. Soft and non-distended. No tenderness to deep palpation in all 4 quadrants. No hepatosplenomegaly. EXT: No cyanosis, clubbing or edema. Impression: Asx Crohn's picked up on screening colonoscopy. Off Lialda for one year. Saxe negative GERD sx well controlled, could try lowering his dose to 20 mg Reassurance F/u Prn 15 minutes of 25 minute office visit in direct face to face pt contact documented in this encounter Plan of Treatment Not on file documented as of this encounter Visit Diagnoses Diagnosis Ulcerative colitis, unspecified- Primary documented in this encounter Care Teams Dry Plasterer Relationship Specialty Start Date End Date Anil Mcwilliams MD [address] [place] [address] PCP - General 06/17/10 documented as of this encounter
--- OUTSIDE RECORDS SUMMARY | 2024-03-08 03:06 | XMS_ITS | Encounter Summary ---
Author Organization [facility] Address [facility] [place] [address] Care Team Providers Care Server Programmer Name Role Phone Anil Mcwilliams MD Primary Care Provider [phone] Encounter Details Date Type Department Care Team (Late st Contact Info) Description 11/28/2010 Abstract [place] [address] Hemal Bustillo MD [facility] [place] [address] Social History Tobacco Use Types Packs/Day Years Used Date Smoking Tobacco: Never Assessed Sex and Gender Information Value Date Recorded Sex Assigned at Not on file Gender Identity Not on file Sexual Orientation Not on file documented as of this encounter Plan of Treatment Not on file documented as of this encounter Visit Diagnoses Not on filedocumented in this encounter Care Teams Server Programmer Relationship Specialty Start Date End Date Anil Mcwilliams MD [address] [place] [address] PCP - General 06/17/10 documented as of this encounter
--- OUTSIDE RECORDS SUMMARY | 2024-03-08 03:06 | XMS_ITS | Encounter Summary ---
Author Organization [facility] Address [facility] [place] [address] Care Team Providers Care Resaw Machine Operator Name Role Phone Anil Mcwilliams MD Primary Care Provider [phone] Reason for Visit * Reason Comments GI Problem Encounter Details Date Type Department Care Team (Late st Contact Info) Description 01/20/2012 9:00 AM EDT Follow-[place] [id number] Hemal Bustillo MD [facility] [place] [address] Crohn's (Primary Dx) Discharge Disposition: Home Social History Tobacco Use Types Packs/Day Years Used Date Smoking Tobacco: Former Sex and Gender Information Value Date Recorded Sex Assigned at Not on file Gender Identity Not on file Sexual Orientation Not on file documented as of this encounter Last Filed Vital Signs Vital Sign Reading Time Taken Comments Blood Pressure 151/79 01/20/2012 8:48 AM EDT Pulse 72 01/20/2012 8:48 AM EDT Temperature - - Respiratory Rate - - Oxygen Saturation - - Inhaled Oxygen Concentration - - Weight 75.3 kg (166 lb) 01/20/2012 8:48 AM EDT Height 182.9 cm (6') 01/20/2012 8:48 AM EDT Body Mass Index 22.51 01/20/2012 8:48 AM EDT documented in this encounter Progress Notes * Hemal Bustillo MD - 01/20/2012 9:29 AM EDT I. Probable Crohn's disease involving ileum and ascending colon. A. Diagnosed on screening colonoscopy, essentially asymptomatic. B. Colonoscopy performed for screening, Dr. Galdamez, 08/13/10: cecal hyperemia, increased vascularity and edema, focal patches of mild inflammation in the ascending colon. Beefy appearance exudates. TI:erythematous, patchy tissue with exudates. 1. Pathology reviewed at [facility] [place]. a. TI: mildly active, chronic, nonspecific ileitis with focal erosion. b. Ascending colon: moderately active, chronic colitis. c. Transverse colon: mildly active, chronic, nonspecific colitis. d. Left colon: mildly active, chronic, nonspecific colitis, patchy. e. Rectum: rectal mucosa within normal limits. C. Lialda initiated 09/05 II. H. pylori gastritis. III. GERD. Prilolsec 40 qd IV. BPH and urinary retention. Subjective: Currently doing well. Moves bowels once a day occasional loose. Not sure if Lialda is doing anything as he is essentially Asx. Tolerating this medication well. Had labs in Jul not sure of the results, questions if he can come off of lialda Gerd sx controlled on Omeprazole 40 qd ROS negative GEN: Healthy-appearing in no acute distress. Appears stated age. Cooperate and answers questions appropriately. SKIN: No rashes or abnormal lesions. NECK: No adenopathy and no thyromegaly. HEENT: PERRL, CAR USHER and OP clear without ulceration or lesions. [...] dose to 20 mg F/u one year. Given he is Asx will try off Lialda, he will call if he has any trouble and then could go back on it Check results of labs CBC F/u with me at time of colonoscopy in Spring 2013 15 minutes of 25 minute office visit in direct face to face pt contact documented in this encounter Plan of Treatment Not on file documented as of this encounter Visit Diagnoses Diagnosis Crohn's- Primary Regional enteritis of unspecified site documented in this encounter Care Teams Resaw Machine Operator Relationship Specialty Start Date End Date Anil Mcwilliams MD [address] [place] [address] PCP - General 06/17/10 documented as of this encounter
--- OUTSIDE RECORDS SUMMARY | 2024-03-08 03:06 | XMS_ITS | Clinical Summary ---
Author Organization [facility] Address [address] [place] [address] Care Team Providers Care Purchasing Manager/Sales Name Role Phone Anil Mcwilliams MD Primary Care Provider [phone] Social History Tobacco Use Types Packs/Day Years Used Date Smoking Tobacco: Never Assessed Sex and Gender Information Value Date Recorded Sex Assigned at Not on file Gender Identity Not on file Sexual Orientation Not on file Plan of Treatment Health Maintenance Due Date Last Done Comments Hepatitis C Screen 1948 RSV Immunization ( o r 60+ Years) (1 - 1-dose 60+ series) 2008 Fall Risk Screening 2013 COVID-19 Vaccine (2022-24 season) 2023 Care Teams Purchasing Manager/Sales Relationship Specialty Start Date End Date Anil Mcwilliams MD [address] [place] [id number] PCP - General 08/15/10
--- OUTSIDE RECORDS SUMMARY | 2024-03-08 03:06 | XMS_ITS | Clinical Summary ---
Author Organization [facility] Address [facility] [place] [address] Care Team Providers Care Manager Stone Name Role Phone Anil Mcwilliams MD Primary Care Provider [phone] Allergies No known active allergies Medications Medication Sig Dispensed Refills Start Date End Date Status SILDENAFIL CITRATE (VIAGRA ORAL) 09/03/2010 Active lisinopril (PRINIVIL;ZESTRIL) 5 mg Tablet Take 5 mg by mouth daily. Active omeprazole (PRILOSEC) 40 mg Capsule, Delayed Release(E.C.) Take 40 mg by mouth daily. Active Active Problems Problem Noted Date Diagnosed Date Crohn's 12/03/2010 Overview (2012): I. Probable Crohn's disease involving ileum and ascending colon. A. Diagnosed on screening colonoscopy, essentially asymptomatic. B. Colonoscopy performed for screening, Dr. Galdamez, 08/13/10: cecal hyperemia, increased vascularity and edema, focal patches of mild inflammation in the ascending colon. Beefy appearance exudates. TI: erythematous, patchy tissue with exudates. 1. Pathology reviewed at [facility] [place]. a. TI: mildly active, chronic, nonspecific ileitis with focal erosion. b. Ascending colon: moderately active, chronic colitis. c. Transverse colon: mildly active, chronic, nonspecific colitis. d. Left colon: mildly active, chronic, nonspecific colitis, patchy. e. Rectum: rectal mucosa within normal limits. C. Lialda initiated 09/05 GERD (gastroesophageal reflux disease) 1 BPH (benign prostatic hyperplasia) 12/03/2010 Immunizations Name Administration Dates Next Due Influenza PF, Split 07/02/2011 Social History Tobacco Use Types Packs/Day Years Used Date Smoking Tobacco: Former Sex and Gender Information Value Date Recorded Sex Assigned at Not on file Gender Identity Not on file Sexual Orientation Not on file Last Filed Vital Signs Vital Sign Reading [...] Mass Index 23.35 05/30/2014 3:36 PM EST Plan of Treatment Health Maintenance Due Date Last Done Comments CT Colonography 1948 Colonoscopy 1948 Colorectal Cancer Screening 1948 FIT DNA 1948 FIT 1948 Sigmoidoscopy (10 year) with FIT yearly 1948 Sigmoidoscopy 1948 Hepatitis C Screening 1966 Lipid Screening 1966 Tdap adult 1967 Tetanus vaccine 1967 Zoster vaccine (1 of 2) 1998 Advance Directive 2003 AAA Screen 2013 Pneumoccocal Vaccine: 65+ (1 of 1 - PCV) 2013 Covid-19 Vaccine (1 - 2022- season) 2023 Influenza (Flu) vaccine (1 o f 1 - Influenza standard series) 03/26/2024 07/02/2011 Care Teams Manager Stone Relationship Specialty Start Date End Date Anil Mcwilliams MD [address] [place] [address] PCP - General 06/17/10
[2024-03-08 18:09] LABS: PSA, Diagnostic 6.4 ng/mL (<=6.5)
== END 2024-03-08 03:05 | disposition home or self-care (01) ==
LOC: LBO 03:04
PROVIDERS: PCP Nurse Practitioner Family; Visit Provider Nurse Practitioner Gerontology
DX: N40.1 Benign prostatic hyperplasia with lower urinary tract symptoms (principal); R97.20 Elevated prostate specific antigen [PSA]
CPT/HCPCS: 36415; 84153

== ENCOUNTER → 2024-03-15 09:53 | Outpatient (BNVA) | payer MEDICARE, SELFPAY | PROVIDERS: PCP Nurse Practitioner Family; Visit Provider Nurse Practitioner Gerontology | DX: N40.1 Benign prostatic hyperplasia with lower urinary tract symptoms (principal); N28.89 Other specified disorders of kidney and ureter; R97.20 Elevated prostate specific antigen [PSA]; N28.1 Cyst of kidney, acquired | CPT/HCPCS: 51798; 99213 ==

== ENCOUNTER 2024-05-10 02:24 | Outpatient (CLI) | payer MEDICARE, SELFPAY ==
[2024-05-10] MEDS: Gadoterate meglumine 20 ML VIAL 17 ML IVP (12:52)
--- NOTE | 2024-05-10 13:15 | DI.MRI_ITS ---
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 CONTRAST MATERIAL: IV Contrast: 17 mL of Dotarem contrast administered. COMPARISON: MR MR BRAIN WO from 12/04/2020 MR MR ANGIO BRAIN WO from 12/04/2020 MR MR BRAIN WO from 11/01/2023 FINDINGS: The examination is limited due to patient motion artifact. VENTRICLES AND EXTRA AXIAL SPACES: Normal in size and morphology for the patient's age. HEMORRHAGE: None. CEREBRAL PARENCHYMA: No focus of restricted diffusion to suggest acute infarct. No space-occupying le joss identified. MIDLINE SHIFT: None. BRAINSTEM/CEREBELLUM: Normal. CALVARIUM: Normal. ENHANCEMENT: There is again seen smooth diffuse meningeal thickening with smooth homogeneous enhancem ent following contrast administration. There is similar meningeal thickness compared to the prior ex amination from 11/01/2023. VISUALIZED PARANASAL SINUSES/MASTOIDS: There is mucosal thickening in the visualized paranasal sinuse s. There is also some fluid seen in the right mastoid air cells. [place]: Normal flow void. [place]: Unremarkable. OTHER FINDINGS: IMPRESSION: 1. Stable smooth diffuse meningeal thickening with homogeneous enhancement. 2. Stable pansinusitis. 3. No intraparenchymal mass or enhancing lesion. No evidence of an acute infarct. DATA REPOSITORY:
== END 2024-05-10 02:44 ==
LOC: DI 02:25
PROVIDERS: PCP Nurse Practitioner Family; Visit Provider Psychiatry & Neurology Neurology
DX: G96.198 Other disorders of meninges, not elsewhere classified (principal)
CPT/HCPCS: 70553

== ENCOUNTER → 2024-05-23 12:39 | Outpatient (BNVA) | payer MEDICARE, SELFPAY | PROVIDERS: PCP Nurse Practitioner Family; Referring Provider Nurse Practitioner Family; Visit Provider Psychiatry & Neurology Neurology | DX: G96.198 Other disorders of meninges, not elsewhere classified (principal) | CPT/HCPCS: 99213 ==

== ENCOUNTER 2024-07-10 01:20 | Outpatient (CLI) | payer MEDICARE, SELFPAY ==
--- NOTE | 2024-07-10 | DI.US_ITS ---
Exam(s) US SOFT TISSUE HEAD OR NECK EXAM: US SOFT TISSUE HEAD OR NECK CLINICAL HISTORY: CERVICAL LYMPHADENITIS, I88.9. TECHNIQUE: Ultrasound was performed using standard protocol. COMPARISON: No exams were available for comparison FINDINGS: Sonographic assessment utilizing grayscale and color Doppler imaging was performed and targeted to th e area of clinical concern. No suspicious cystic or solid masses are seen. A sonographically normal appearing lymph node is seen in the left neck measuring 1.3 x 0.4 x 0.5 cm. IMPRESSION: No suspicious cystic or solid masses. No sonographic evidence of cervical adenopathy. DATA REPOSITORY:
== END 2024-07-10 01:40 ==
LOC: DI 01:20
PROVIDERS: PCP Nurse Practitioner Family; Visit Provider Family Medicine
DX: I88.9 Nonspecific lymphadenitis, unspecified (principal)
CPT/HCPCS: 76536

== ENCOUNTER 2024-09-06 02:43 | Outpatient (CLI) | payer MEDICARE, SELFPAY ==
--- NOTE | 2024-09-06 07:15 | DI.US_ITS ---
Exam(s) US RENAL EXAM: US RENAL CLINICAL HISTORY: monitoring renal mass/cyst,BPH LOC/LUTS,N40.1,N28.1. TECHNIQUE: Harris scale, color and spectral Doppler were used. COMPARISON: CT CT ABD/PELVIS W CONTRAST from 10/17/2020 US US RENAL from 09/03/2022 US US RENAL from 09/09/2023 FINDINGS: Mild fat exceed a ptosis noted. Right kidney: 11.0cm Echogenicity: Normal Hydronephrosis: No Cyst or mass: Upper pole cysts measuring 3.1 x 2.4 x 2.2 cm. Smaller cyst seen laterally measuring 1 .3 cm. Nephrolithiasis: No Left kidney: 11.7cm. Area of scarring again noted at lower pole. No recurrence mass Echogenicity: Normal Hydronephrosis: No Cyst or mass: No Nephrolithiasis: No Bladder:Normal. Both ureteral jets are visualized. Prevoid vol:356 cc Postvoid vol: The patient could not void. The prostate is enlarged, measuring 96 cc in volume. IMPRESSION: No suspicious renal masses. DATA REPOSITORY:
== END 2024-09-06 03:03 ==
LOC: DI 02:43
PROVIDERS: PCP Nurse Practitioner Family; Visit Provider Nurse Practitioner Gerontology
DX: N28.1 Cyst of kidney, acquired
CPT/HCPCS: 76770

== ENCOUNTER 2024-09-06 04:10 | Outpatient (CLI) | payer MEDICARE, SELFPAY ==
[2024-09-06 10:27] LABS: CREATININE 1.1 mg/dL (0.70-1.30); Estimated GFR 69.57 (mL/min/1.73m2)
[2024-09-06 17:48] LABS: PSA, Diagnostic 6.1 ng/mL (<=6.5)
== END 2024-09-06 04:11 | disposition home or self-care (01) ==
LOC: LBO 04:10
PROVIDERS: Psychiatry & Neurology Neurology; PCP Nurse Practitioner Family; Visit Provider Nurse Practitioner Gerontology
DX: R97.20 Elevated prostate specific antigen [PSA] (principal); N40.1 Benign prostatic hyperplasia with lower urinary tract symptoms; G96.198 Other disorders of meninges, not elsewhere classified
CPT/HCPCS: 36415; 82565; 84153

== ENCOUNTER → 2024-09-13 10:00 | Outpatient (BNVA) | payer MEDICARE, SELFPAY | PROVIDERS: PCP Nurse Practitioner Family; Referring Provider Nurse Practitioner Family; Visit Provider Nurse Practitioner Gerontology | DX: R31.0 Gross hematuria (principal); N40.1 Benign prostatic hyperplasia with lower urinary tract symptoms; N28.89 Other specified disorders of kidney and ureter; R97.20 Elevated prostate specific antigen [PSA] | CPT/HCPCS: 99214 ==

== ENCOUNTER 2024-11-23 21:59 | Outpatient (REF) | payer MEDICARE, SELFPAY ==
[2024-11-23 22:00] LABS: Abs Immature Grans 0.02 10^3/uL (0.0-0.06); Absolute Basophil Count 0.05 10^3/uL (0.0-0.2); Absolute Lymphocyte Count 1.34 10^3/uL (1.2-3.4); Absolute Monocyte Count 0.48 10^3/uL (0.1-0.8); Absolute Neutrophil Count 4.33 10^3/uL (1.2-6.7); Basophils % 0.8 %; Eosinophils % 3.1 %; HCT 45.9 % (40.0-50.0); HGB 15.2 g/dL (13.5-17.5); Immature Grans % 0.3 %; Lymphocytes % 20.9 %; MCH 28.7 pg (27.0-33.0); MCHC 33.1 % (32.0-36.0); MCV 87 fL (80-95); MPV 10.6 fL (8.0-11.0); Monocytes % 7.5 %; Neutrophils % 67.4 %; Platelet Count 301 10^3/uL (130-400); RDW 12.7 % (11.8-14.1); RDW-SD 39.8 fL; WBC 6.42 10^3/uL (4.4-10.8)
[2024-11-23 22:13] LABS: ALT 34 U/L (16-63); AST 29 U/L (15-37); Albumin 4.1 g/dL (3.4-5.0); Alkaline Phosphatase 65 U/L (46-116); Anion Gap 8.4 mmol/L (3-11); BUN 17 mg/dL (7-18); Bilirubin, Total 0.4 mg/dL (0.2-1.0); CO2 28.6 mmol/L (21.0-32.0); CREATININE 1.1 mg/dL (0.70-1.30); Calcium 8.8 mg/dL (8.5-10.1); Chloride 106 mmol/L (98-107); Estimated GFR 69.57 (mL/min/1.73m2); Glucose 90 mg/dL (74-106); Potassium 4.4 mmol/L (3.5-5.1); Sodium 143 mmol/L (136-145); TSH (W/Ref FT4) 3.26 uIU/mL (0.36-3.74); Total Protein 7.6 g/dL (6.4-8.2)
== END 2024-11-23 22:00 | disposition home or self-care (01) ==
LOC: NCHCN 21:59
PROVIDERS: PCP Nurse Practitioner Family; Visit Provider Nurse Practitioner Family
DX: I48.91 Unspecified atrial fibrillation (principal)
CPT/HCPCS: 80053; 83735; 84443; 85025

== ENCOUNTER 2024-11-28 09:50 | Outpatient (CLI) | payer MEDICARE, SELFPAY | END 2024-11-28 09:51 | disposition home or self-care (01) | PROVIDERS: PCP Nurse Practitioner Family; Visit Provider Nurse Practitioner Family | DX: I48.91 Unspecified atrial fibrillation (principal) | CPT/HCPCS: 93246 ==

== ENCOUNTER 2024-12-14 02:34 | Outpatient (CLI) | payer MEDICARE, SELFPAY ==
--- NOTE | 2024-12-14 | DI.US_ITS ---
APPROVED REPORT EXAM: Comprehensive 2D, Doppler, and color-flow Echocardiogram Patient Location: Out-Patient Paper Feeder: Cheryle Harris RDCS (AE) Indications: Unspecified atrial fibrillation Other Information Study Quality: Adequate. Technically limited study due to body habitus, limited parasternal imaging.. Conclusion Normal left ventricular wall thickness and chamber size. Ejection fraction is 55%. Wall motion is n ormal Normal right ventricular size and function Mildly dilated left atrium. Normal right atrial size Trileaflet aortic valve with mild regurgitation Normal mitral valve with mild regurgitation Mild tricuspid regurgitation. Estimated right ventricular systolic pressure is 25 mmHg Wall motion Left Ventricle Technically limited parasternal imaging of left ventricle. The left ventricular systolic function is normal. The left ventricular ejection fraction is within the normal range. There is normal LV segmen wilver wall motion. There is no ventricular septal defect visualized. LVEF is 55%. Right Ventricle The right ventricle is normal size. The right ventricular systolic function is normal. Atria Left atrium is mildly dilated. The right atrium size is normal. The interatrial septum is intact with no evidence for an atrial septal defect. Aortic Valve The aortic valve is normal in structure. Aortic valve is trileaflet. There is no aortic valvular sten osis. Mild aortic regurgitation. Mitral Valve The mitral valve is normal in structure. No evidence of mitral valve stenosis. Mild mitral regurgita tion. Tricuspid Valve The tricuspid valve is normal in structure. There is no tricuspid valve stenosis. Mild tricuspid re gurgitation. The RVSP is 25.3mmHg. Pulmonic Valve The pulmonary valve is normal in structure. There is no pulmonic valvular regurgitation. Great Vessels The aortic root is normal in size. The ascending aorta is normal in size. Aortic arch is normal in ca liber. IVC is normal in size and collapses >50% with inspiration. Pericardium There is no pericardial effusion. 2D Dimensions Ao Root d 2.94 cm M: 3.1 - 3.7 Ao Asc Diam d 3.23 cm M: 2.6 - 3.4 M-Mode TAPSE 1.80 cm (M/F) >1.7 Auto EF LV EDV A4C 90.1 mL LV EDV A2C 115.3 mL LV EDV BP 102.0 mL LV ESV A4C 41.5 mL LV ESV A2C 51.5 mL LV ESV BP 47.5 mL LVEF(%) A4C 54.0 % LVEF(%) A2C 55.3 % LVEF(%) BP 53.4 % LV SV A4C 48.6 ml LV SV A2C 63.8 ml LV SV BP 54.5 ml LV CO A4C 3.7 L/min LV CO A2C 5.2 L/min LV CO BP 4.4 L/min HR A4C 75.32 BPM HR A2C 81.27 BPM LV EDV Index (BP) LA Volume LA Length A4C 5.9 cm LA Length A2C 6.4 cm LA Area A4C s 21.49 cm2 LA Area A2C s 22.54 cm2 LA Vol A4C A-L 66.78 mL LA Vol A2C A-L 67.39 mL LA Vol Biplane A-L 70.1 mL LA Vol/BSA A4C A-L LA Vol/BSA A2C A-L LA Vol/BSA BP A-L 34.0 mL/m2 LA Vol A4C MOD 62.6 mL LA Vol A2C MOD 64.0 mL LA Vol BP MOD 65.6 mL RA Volume RA Area A4C 12.5 cm2 RA ESV A4C (A-L) 28.6mL RA Vol/BSA A4C A-L RA Length A4C 4.6 cm RA ESV A4C (MOD) 27.1mL LV Diastology MV E' medial 0.118 (>0.07 m/s) MV E Vmax 1.06 (0.4-1.3 m/s) MV E' lateral 0.108 (>0.1 m/s) Aortic Valve AoV Vmax 1.46 m/s LVOT Vmax 1.18 m/s AoV Peak Grad 43.3 mmHg LVOT Peak Grad 5.6 mmHg AoV Area (Vmax) 2.67 cm2 LVOT VTI 0.205 m AoV VTI 0.300 m LVOT Mean Grad 3.3 mmHg AoV Mean Jean. 1.02 m/s LVOT SV 67.90 mL AoV Mean Grad 4.8 mmHg LVOT Diam s 2.05 cm AoV Area (VTI) 2.26 cm2 AV Regurg Peak Gr. 8.50 mmHg Velocity Ratio 0.81 AR Decel [place] 2.3m/sec2 AR DT 1887 msec AR PHT 547 msec AR Vmax 4.42 m/s Mitral Valve MV Vmax TIPS 1.16 m/s MV Mean Grad 2.0 (<2mmHg) MV Area PHT 3.68 cm2 MV VTI 0.228 m Pulmonary Valve PV Vmax 0.86 (0.5-1.5 m/s) RVOT Vmax 0.85 m/s PV Peak Grad 2.9 mmHg RVOT Peak Gr. 2.9 mmHg PV Mean Jean 0.59 m/s RVOT VTI 0.184 m PV Mean Grad 1.7 mmHg RVOT Mean Gr. 1.6 mmHg Tricuspid Valve RA Pressure 3.00 mmHg TR Vmax 2.36 m/s TV S' 0.14 m/s TR Peak Grad 22.2 mmHg RVSP (TR) 25.3 mmHg
== END 2024-12-14 02:54 ==
LOC: DI 02:34
PROVIDERS: PCP Nurse Practitioner Family; Visit Provider Internal Medicine Cardiovascular Disease
DX: I48.91 Unspecified atrial fibrillation (principal); I08.2 Rheumatic disorders of both aortic and tricuspid valves
CPT/HCPCS: 93306

== ENCOUNTER 2024-12-19 07:13 | Outpatient (CLI) | payer MEDICARE, SELFPAY ==
--- NOTE | 2024-12-19 08:32 | W.CARDEVENT ---
Date of service: 12/19/24 Time of Service: 08:32 Cardiac Event Recorder Referring Provider:: Gaviota Brock Indications:: Palpitations, atrial fibrillation Cardiac Event Note: This is a cardiac event monitor. Patient was monitored for 12 days and 13 hours. Rhythm throughout was atrial fibrillation with an average heart rate of 102. Minimum was 57, maximum 195. 44% of the time the patient's heart rate was above 100. There were occasional ventricular ectopic beats There were no pauses greater than 3 seconds No symptoms were reported
== END 2024-12-19 07:14 | disposition home or self-care (01) ==
LOC: CARDOPNVT 07:13
PROVIDERS: PCP Nurse Practitioner Family; Visit Provider Internal Medicine Cardiovascular Disease
DX: R00.2 Palpitations (principal); I48.91 Unspecified atrial fibrillation
CPT/HCPCS: 93248

== ENCOUNTER 2025-01-05 11:08 | Outpatient (CLI) | payer MEDICARE, SELFPAY | END 2025-01-05 11:09 | disposition home or self-care (01) | LOC: DI.CARD 11:12 | PROVIDERS: PCP Nurse Practitioner Family; Referring Provider Nurse Practitioner Family; Visit Provider Internal Medicine Cardiovascular Disease | DX: I48.19 Other persistent atrial fibrillation (principal) | CPT/HCPCS: 93010 ==

== ENCOUNTER → 2025-01-05 11:08 | Outpatient (BNVA) | payer MEDICARE, SELFPAY | PROVIDERS: PCP Nurse Practitioner Family; Referring Provider Nurse Practitioner Family; Visit Provider Internal Medicine Cardiovascular Disease | DX: I48.19 Other persistent atrial fibrillation (principal); Z79.01 Long term (current) use of anticoagulants | CPT/HCPCS: 99214; 93005 ==

== ENCOUNTER 2025-03-07 03:46 | Outpatient (CLI) | payer MEDICARE, SELFPAY ==
[2025-03-07 18:07] LABS: PSA, Diagnostic 6.3 ng/mL (<=6.5)
== END 2025-03-07 03:47 | disposition home or self-care (01) ==
PROVIDERS: PCP Nurse Practitioner Family; Visit Provider Nurse Practitioner Gerontology
DX: N40.1 Benign prostatic hyperplasia with lower urinary tract symptoms (principal); R97.20 Elevated prostate specific antigen [PSA]
CPT/HCPCS: 36415; 84153

== ENCOUNTER 2025-03-15 14:00 | Emergency (ER) | payer MEDICARE, SELFPAY ==
[2025-03-15] VITALS (45 sets, daily range): BP systolic 154–211; BP diastolic 78–119; PULSE 57–118; RESP 12–24; TEMP 36.3; O2SAT 94–100
--- NOTE | 2025-03-15 14:00 | RT.EKG_ITS ---
APPROVED REPORT Exam: Resting ECG Reason for Exam: dizziness Patient Location: E HR:119 bpm ECG Measurements Heart Rate 119 AXIS IA [id number] P [id number] QRSd 69 QRS -34 QT 337 T 50 QTc 475 Conclusion Atrial fibrillation...V-rate 78-161, irreg A-activity Inferior infarct, old...Q >35mS, II III aVF No STEMI
--- NOTE | 2025-03-15 14:15 | DI.RAD_ITS ---
Exam(s) XR PORTABLE CHEST AP EXAM: XR PORTABLE CHEST AP CLINICAL HISTORY: Dizziness TECHNIQUE: 2D digital imaging was performed. COMPARISON: CR XR PORTABLE CHEST AP from 08/01/2021 FINDINGS: LUNGS: Clear. No pleural abnormality seen. HEART: Normal size. AORTA: Normal diameter. BONES: Unremarkable for age. Soft tissues: Unremarkable. IMPRESSION: No acute findings. DATA REPOSITORY: RADIATION DOSE DELIVERED:
[2025-03-15 14:44] LABS: Abs Immature Grans 0.03 10^3/uL (0.0-0.06); HCT 49.3 % (40.0-50.0); HGB 16.6 g/dL (13.5-17.5); Immature Grans % 0.4 %; MCH 28.4 pg (27.0-33.0); MCHC 33.7 % (32.0-36.0); MCV 84 fL (80-95); MPV 10.5 fL (8.0-11.0); Platelet Count 311 10^3/uL (130-400); RBC 5.84 10^6/uL (4.36-5.78); RDW 13.2 % (11.8-14.1); RDW-SD 40.5 fL; WBC 8.32 10^3/uL (4.4-10.8)
[2025-03-15] MEDS: dilTIAZem 25 MG/5 ML VIAL 20 MG IVP (14:53)
--- NOTE | 2025-03-15 15:00 | W.ED.GENAD ---
Discharge Plan Disposition Patient Disposition: Home Condition: Good Discharge Details Clinical Impression: Atrial fibrillation, Near syncope Primary Care Provider: Gaviota Brock ED Provider: Moiz Chicas Home Meds and New Rx's Prescriptions: Continued mesalamine [Lialda] 1.2 gram tablet,delayed release (DR/EC) 2.4 g PO DAILY valsartan 40 mg tablet 40 mg PO DAILY meclizine 25 mg tablet 25 mg PO DAILY PRN (Reason: motion sickness) Qty: 30 3RF venlafaxine 37.5 mg capsule,extended release 24hr 75 mg PO DAILY metoprolol succinate 50 mg tablet extended release 24 hr 50 mg PO DAILY Qty: 90 3RF tamsulosin [Flomax] 0.4 mg capsule 0.4 mg PO DAILY Qty: 90 3RF omeprazole 20 MG capsule,delayed release(DR/EC) 20 mg PO DAILY@0730 amlodipine 5 MG tablet 10 mg PO DAILY sildenafil 100 mg tablet 100 mg PO PRN aspirin [Ecotrin Low Strength] 81 MG tablet,delayed release (DR/EC) 81 mg PO DAILY multivitamin 1 EACH capsule 1 ea PO DAILY Discharge Instructions Additional Instructions: Please follow-up with your primary care provider regarding your visit to the emergency department today. Be sure to discuss results of all test performed here today to include radiology, and laboratory testing as well as results for any pending cultures. Should your symptoms worsen, or if you develop new concerning symptoms, please return immediately emergency department for further evaluation. HPI General Date/Time Provider Initiated Documentation: 03/15/25 14:14. HPI Narrative: MDM/Narrative: 74-year-old male presents as above. Vital signs notable for hypertension, and tachycardia. Patient's presentation is concerning for possible acute life-threatening pathology such as ACS, PE, less likely to be stroke as patient did not actually suffer any vertiginous symptoms despite the triage note. I suspect symptoms are most likely due to the fact that the patient did not take any of his antiarrhythmics prior to going to work. I suspect he was flipped into A-fib RVR while at the [employer], and to his credit return home and self medicated with appropriate medications. Given his reassuring neurologic exam, and nonischemic EKG. I will monitor the patient to see if he has response to his oral medications to decrease his heart rate and blood pressure. If not we will intervene with IV medications. Will also obtain screening labs including troponin, electrolytes, CBC, urine and chest x-ray to assess for possible electrolyte disturbance or infection which may explain the patient's heart rate. 1709 On reassessment, patient is resting comfortably. His heart rate is now 88, blood pressure is significantly reduced prior to arrival. Patient has ambulated, notes that he feels fine denies any current complaints. Results shared with them discussed with the patient and h his were agreeable to plan for discharge to follow-up primary care. Disposition: Home HPI: The patient is a 74-year-old male with a history of vertigo and atrial fibrillation, presenting with vertigo. He is accompanied by his . 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 He has a known history of vertigo and reported experiencing presyncope without the sensation of room spinning. His condition worsened, prompting him to drive home and take meclizine, which provided some relief. He continues to feel abnormal when standing and reports a mild headache, described as similar to a hangover. He did not experience pain during the episode. His observed profuse sweating. He denies recent leg swelling, chest pain, dyspnea, fever, chills, or cough. He felt cold and clammy at the onset of symptoms. He has had no contact with sick individuals and has no history of pneumonia or urinary tract infection. His urination is normal. He does note that he did not take his medications prior to going to the [employer], and did take his chronic medications once he returned home. PAST SURGICAL HISTORY: No significant surgical history ROS: Negative besides as mentioned above Exam: Vital signs: Reviewed. General Appearance: Alert and oriented. No acute distress. HEENT: NCAT, EOMI, not icteric. External ears normal. No rhinorrhea. Moist mucous membranes. Neck: Supple, full range of motion, no observable masses, No meningeal sign. Respiratory: Wheezing in lungs Cardiovascular: RRR, no edema. Gastrointestinal: No guarding rebound or tenderness on exam Back: No midline tenderness to palpation or palpable step-offs of the C/T/L spine. Musculoskeletal: No peripheral edema. Atraumatic Skin: Warm and dry, no rash Neurological: Cranial nerves II-XII intact. Strength 5/5 in bilateral upper and lower extremities. No nystagmus lateral or vertical gaze Psychiatric: Appropriate for situation. Other observations: Rhythm: A-fib with rapid ventricular response Rate: 119 bpm [place]: Leftward axis axis Intervals: QTc 475 ms Other findings: No acute ST segment or T wave changes to suggest acute ischemia. Labs: Laboratory Tests Range/Units 03/15/25 03/15/25 03/15/25 14:30 14:43 14:50 WBC (4.4-10.8) 10^3/uL 8.32 RBC (4.36-5.78) 10^6/uL 5.84 H Hgb (13.5-17.5) g/dL 16.6 Hct (40.0-50.0) % 49.3 MCV (80-95) fL 84 MCH (27.0-33.0) pg 28.4 MCHC (32.0-36.0) % 33.7 RDW (11.8-14.1) % 13.2 Plt Count (130-400) 10^3/uL 311 MPV (8.0-11.0) fL 10.5 Immature Gran % % 0.4 Neutrophils % % 73.3 Lymphocytes % % 14.9 Monocytes % % 7.1 Eosinophils % % 3.5 Basophils % % 0.8 Nucleated RBC % (0.0-0.3) % 0.0 Absolute Neutrophils (1.2-6.7) 10^3/uL 6.10 Absolute Lymphocytes (1.2-3.4) 10^3/uL 1.24 Absolute Monocytes (0.1-0.8) 10^3/uL 0.59 Absolute Eosinophils (0.0-0.7) 10^3/uL 0.29 Absolute Basophils (0.0-0.2) 10^3/uL 0.07 PT (9.1-11.1) sec 10.9 INR (0.9-1.1) 1.1 APTT (20.6-30.2) sec 25.3 Sodium (136-145) mmol/L 143 Potassium (3.5-5.1) mmol/L 4.4 Chloride (98-107) mmol/L 105 Carbon Dioxide (21.0-32.0) mmol/L 28.7 Anion Gap (3-11) mmol/L 9.3 BUN (7-18) mg/dL 13 Creatinine (0.70-1.30) mg/dL 1.3 Est GFR (CKD-EPI 2020) (mL/min/1.73m2) 56.93 Glucose (74-106) mg/dL 115 H Calcium (8.5-10.1) mg/dL 9.4 Magnesium (1.8-2.4) mg/dL 2.1 Total Bilirubin (0.2-1.0) mg/dL 0.5 AST (15-37) U/L 27 ALT (16-63) U/L 34 Alkaline Phosphatase (46-116) U/L 56 Troponin I (<or=76) ng/L 7 Total Protein (6.4-8.2) g/dL 8.1 Albumin (3.4-5.0) g/dL 4.2 TSH (0.36-3.74) uIU/mL 1.86 Urine Color (Yellow) Urine Clarity (Clear) Urine pH (5-8) Ur Specific [place] (1.005-1.025) Urine Protein (Neg-Trace) mg/dL Urine Ketones (Negative) mg/dL Urine Blood (Negative) Urine Nitrite (Negative) Urine Bilirubin (Negative) Urine Urobilinogen (Up to 0.2) mg/dL Ur Leukocyte Esterase (Negative) Urine RBC (0-2) HPF Urine WBC (0-5) HPF Ur Epithelial Cells (Negative) HPF Urine Crystals (Negative) HPF Urine Bacteria (Negative) HPF Urine Casts (Negative) LPF Urine Mucus (Negative) Ur Culture Indicated? Urine Glucose (Negative) mg/dL COVID-19 Source Nasopharynx SARS-CoV-2 (PCR) (Negative) Negative Influenza Type A (PCR) (Negative) Negative Influenza Type B (PCR) (Negative) Negative RSV (PCR) (Negative) Negative Range/Units 03/15/25 03/15/25 15:35 16:15 WBC (4.4-10.8) 10^3/uL RBC (4.36-5.78) 10^6/uL Hgb (13.5-17.5) g/dL Hct (40.0-50.0) % MCV (80-95) fL MCH (27.0-33.0) pg MCHC (32.0-36.0) % RDW (11.8-14.1) % Plt Count (130-400) 10^3/uL MPV (8.0-11.0) fL Immature Gran % % Neutrophils % % Lymphocytes % % Monocytes % % Eosinophils % % Basophils % % Nucleated RBC % (0.0-0.3) % Absolute Neutrophils (1.2-6.7) 10^3/uL Absolute Lymphocytes (1.2-3.4) 10^3/uL Absolute Monocytes (0.1-0.8) 10^3/uL Absolute Eosinophils (0.0-0.7) 10^3/uL Absolute Basophils (0.0-0.2) 10^3/uL PT (9.1-11.1) sec INR (0.9-1.1) APTT (20.6-30.2) sec Sodium (136-145) mmol/L Potassium (3.5-5.1) mmol/L Chloride (98-107) mmol/L Carbon Dioxide (21.0-32.0) mmol/L Anion Gap (3-11) mmol/L BUN (7-18) mg/dL Creatinine (0.70-1.30) mg/dL Est GFR (CKD-EPI 2020) (mL/min/1.73m2) Glucose (74-106) mg/dL Calcium (8.5-10.1) mg/dL Magnesium (1.8-2.4) mg/dL Total Bilirubin (0.2-1.0) mg/dL AST (15-37) U/L ALT (16-63) U/L Alkaline Phosphatase (46-116) U/L Troponin I (<or=76) ng/L 6 Total Protein (6.4-8.2) g/dL Albumin (3.4-5.0) g/dL TSH (0.36-3.74) uIU/mL Urine Color (Yellow) Yellow Urine Clarity (Clear) Clear Urine pH (5-8) 7.5 Ur Specific [place] (1.005-1.025) 1.020 Urine Protein (Neg-Trace) mg/dL 30 H Urine Ketones (Negative) mg/dL Negative Urine Blood (Negative) Negative Urine Nitrite (Negative) Negative Urine Bilirubin (Negative) Negative Urine Urobilinogen (Up to 0.2) mg/dL 0.2 Ur Leukocyte Esterase (Negative) Negative Urine RBC (0-2) HPF 0-2 Urine WBC (0-5) HPF Negative Ur Epithelial Cells (Negative) HPF Negative Urine Crystals (Negative) HPF Negative Urine Bacteria (Negative) HPF Rare Urine Casts (Negative) LPF 0-2 Hyaline Urine Mucus (Negative) Negative Ur Culture Indicated? No Urine Glucose (Negative) mg/dL Negative COVID-19 Source SARS-CoV-2 (PCR) (Negative) Influenza Type A (PCR) (Negative) Influenza Type B (PCR) (Negative) RSV (PCR) (Negative) Radiology: Exam(s) XR PORTABLE CHEST AP EXAM: XR PORTABLE CHEST AP CLINICAL HISTORY: Dizziness TECHNIQUE: 2D digital imaging was performed. COMPARISON: CR XR PORTABLE CHEST AP from 08/01/2021 FINDINGS: LUNGS: Clear. No pleural abnormality seen. HEART: Normal size. AORTA: Normal diameter. BONES: Unremarkable for age. Soft tissues: Unremarkable. IMPRESSION: No acute findings. DATA REPOSITORY: RADIATION DOSE DELIVERED: Related Data Home Medications ?Medication ?Instructions ?Recorded ?Confirmed omeprazole 20 mg capsule,delayed 20 mg PO DAILY@0730 02/04/13 01/05/25 release amlodipine 5 mg tablet 10 mg PO DAILY 11/01/14 01/05/25 aspirin 81 mg tablet,delayed 81 mg PO DAILY 07/01/16 01/05/25 release (Ecotrin Low Strength) multivitamin 1 ea PO DAILY 07/01/16 01/05/25 sildenafil 100 mg tablet 100 mg PO PRN 06/16/20 01/05/25 mesalamine 1.2 gram tablet,delayed 2.4 g PO DAILY 11/11/20 01/05/25 release (Lialda) valsartan 40 mg tablet 40 mg PO DAILY 09/15/23 01/05/25 meclizine 25 mg tablet 25 mg PO DAILY PRN motion sickness 11/09/23 01/05/25 #30 tabs venlafaxine 37.5 mg 75 mg PO DAILY 05/23/24 01/05/25 capsule,extended release 24 hr tamsulosin 0.4 mg capsule (Flomax) 0.4 mg PO DAILY urinary retention 08/28/24 01/05/25 #90 caps metoprolol succinate 50 mg 50 mg PO DAILY #90 tabs 01/05/25 01/05/25 tablet,extended release 24 hr Previous Rx's ?Medication ?Instructions ?Recorded meclizine 25 mg tablet 25 mg PO DAILY PRN motion sickness 11/09/23 #30 tabs tamsulosin 0.4 mg capsule (Flomax) 0.4 mg PO DAILY urinary retention 08/28/24 #90 caps metoprolol succinate 50 mg 50 mg PO DAILY #90 tabs 01/05/25 tablet,extended release 24 hr Allergies Allergy/AdvReac Type Severity Reaction Status Date / Time sertraline Allergy Severe Other (See Verified 01/05/25 11:20 Comment) oxycodone Allergy Intermediate Hives, Verified 01/05/25 11:20 Itching losartan Allergy Unknown Other (See Verified 01/05/25 11:20 Comment) lisinopril AdvReac Cough Verified 01/05/25 11:20 General Stated Complaint: Dizzy/Sync WAYNE: 2 Course Vital Signs Vital signs: Vital Signs Temperature 36.3 C L 03/15/25 14:04 Pulse 94 H 03/15/25 14:04 Respiratory Rate 20 03/15/25 14:04 Blood Pressure 211/102 H 03/15/25 14:04 Pulse Oximetry 98 03/15/25 14:04 Temperature 36.3 C L 03/15/25 14:04 Temperature Source Oral 03/15/25 14:04 Pulse 94 H 03/15/25 14:04 Respiratory Rate 20 03/15/25 14:04 Blood Pressure 211/102 H 03/15/25 14:04 Blood Pressure Position Sitting 03/15/25 14:04 Pulse Oximetry 98 03/15/25 14:04 Oxygen Delivery Method Room Air 03/15/25 14:04 Oxygen Flow Rate 0 03/15/25 14:04 Pain Level 0 03/15/25 14:04 Lab/Test Results Lab/Test Results: Laboratory Tests Range/Units 03/15/25 14:30 WBC (4.4-10.8) 10^3/uL 8.32 RBC (4.36-5.78) 10^6/uL 5.84 H Hgb (13.5-17.5) g/dL 16.6 Hct (40.0-50.0) % 49.3 MCV (80-95) fL 84 MCH (27.0-33.0) pg 28.4 MCHC (32.0-36.0) % 33.7 RDW (11.8-14.1) % 13.2 Plt Count (130-400) 10^3/uL 311 MPV (8.0-11.0) fL 10.5 Immature Gran % % 0.4 Neutrophils % % 73.3 Lymphocytes % % 14.9 Monocytes % % 7.1 Eosinophils % % 3.5 Basophils % % 0.8 Nucleated RBC % (0.0-0.3) % 0.0 Absolute Neutrophils (1.2-6.7) 10^3/uL 6.10 Absolute Lymphocytes (1.2-3.4) 10^3/uL 1.24 Absolute Monocytes (0.1-0.8) 10^3/uL 0.59 Absolute Eosinophils (0.0-0.7) 10^3/uL 0.29 Absolute Basophils (0.0-0.2) 10^3/uL 0.07 PFSH All Active Problems (Updated 03/15/25 @ 17:13 by Moiz Chicas MD) Near syncope (Acute) Obstructive sleep apnea (Chronic) Essential hypertension (Acute) GERD with stricture without esophagitis (Acute) Generalized anxiety disorder (Acute) Atrial fibrillation (Chronic) Renal cyst (Acute) Meningeal disorder (Acute) Gross hematuria (Acute) Fatigue (Acute) Hematuria (Acute) Trigger thumb of left hand (Acute) Fracture of tibia with fibula, left, closed (Acute 09/19/15) BPH loc w urin obs/LUTS (Acute) Elevated PSA (Acute) Medical History BPPV (benign paroxysmal positional vertigo) Ulcerative colitis Fracture of tibia Sleep apnea HBP (high blood pressure) GERD (gastroesophageal reflux disease) Abnormal EKG frequent PVCs BPH (benign prostatic hyperplasia) Surgical History S/P ORIF (open reduction internal fixation) fracture Tib/fib complicated by arterial lac S/P hernia repair S/P TURP Family History Brother Hypertension Heart disease Mother , 80s of cva Hyperlipidemia Stroke Father , 60s of alcohol abuse Alcohol use disorder Social History Smoking/Tobacco Use Status: Former Tobacco Use Smoking risk assessment performed?: Yes Alcohol Intake: current Alcohol Intake frequency: holidays/special occasions only Alcohol type: beer Drug use: Never Substance use type: does not use Household members: spouse Housing: house Number of Children: 2 current occupation: Retired Do you feel safe at home: Yes Do you feel safe in your relationship?: Yes
[2025-03-15 15:13] LABS: INR 1.1 (0.9-1.1); PTT Activated 25.3 sec (20.6-30.2); Prothrombin Time 10.9 sec (9.1-11.1)
[2025-03-15 15:14] LABS: ALT 34 U/L (16-63); AST 27 U/L (15-37); Albumin 4.2 g/dL (3.4-5.0); Alkaline Phosphatase 56 U/L (46-116); Anion Gap 9.3 mmol/L (3-11); BUN 13 mg/dL (7-18); Bilirubin, Total 0.5 mg/dL (0.2-1.0); CO2 28.7 mmol/L (21.0-32.0); Calcium 9.4 mg/dL (8.5-10.1); Chloride 105 mmol/L (98-107); Estimated GFR 56.93 (mL/min/1.73m2); Glucose 115 mg/dL (74-106); Magnesium 2.1 mg/dL (1.8-2.4); Potassium 4.4 mmol/L (3.5-5.1); Sodium 143 mmol/L (136-145); TSH 1.86 uIU/mL (0.36-3.74); Total Protein 8.1 g/dL (6.4-8.2); Troponin I 7 ng/L (<or=76)
[2025-03-15 15:43] LABS: COVID-19 PCR Negative (Negative); RSV PCR Negative (Negative)
[2025-03-15 16:07] LABS: Troponin I 6 ng/L (<or=76)
[2025-03-15 16:24] LABS: Glucose Negative (Negative)
[2025-03-15 16:32] LABS: C & S Indicated? No; RBC 0-2 HPF (0-2); WBC Negative HPF (0-5)
== END 2025-03-15 17:48 | disposition home or self-care (01) ==
PROVIDERS: Emergency Provider General Practice; PCP Nurse Practitioner Family
DX: I48.91 Unspecified atrial fibrillation (principal); R55 Syncope and collapse
CPT/HCPCS: 99284 ×2; 36415; 96374; 80053; 87637; 93005; 71045; 81003; 81015; 83735; 84443; 84484; 85025; 85610; 85730; 93010

== ENCOUNTER → 2025-04-11 08:02 | Outpatient (BNVA) | payer MEDICARE, SELFPAY | PROVIDERS: PCP Nurse Practitioner Family; Referring Provider Nurse Practitioner Family; Visit Provider Nurse Practitioner Gerontology | DX: N40.1 Benign prostatic hyperplasia with lower urinary tract symptoms (principal); R97.20 Elevated prostate specific antigen [PSA]; R31.0 Gross hematuria; N28.1 Cyst of kidney, acquired; N28.89 Other specified disorders of kidney and ureter; N52.9 Male erectile dysfunction, unspecified; R39.9 Unspecified symptoms and signs involving the genitourinary system | CPT/HCPCS: 99214; 51798 ==

== ENCOUNTER → 2025-04-17 09:45 | Outpatient (BNVA) | payer MEDICARE, SELFPAY | PROVIDERS: PCP Nurse Practitioner Family; Referring Provider Nurse Practitioner Family; Visit Provider Internal Medicine Cardiovascular Disease | DX: I48.19 Other persistent atrial fibrillation (principal); I10 Essential (primary) hypertension; Z79.01 Long term (current) use of anticoagulants; Z79.899 Other long term (current) drug therapy | CPT/HCPCS: 99214 ==

== ENCOUNTER → 2025-05-21 11:30 | Outpatient (BNVA) | payer MEDICARE, SELFPAY | PROVIDERS: PCP Nurse Practitioner Family; Referring Provider Nurse Practitioner Family; Visit Provider Urology | DX: R31.0 Gross hematuria (principal); Z79.01 Long term (current) use of anticoagulants; Z87.438 Personal history of other diseases of male genital organs | CPT/HCPCS: 76857 ==

== ENCOUNTER → 2025-07-03 08:43 | Outpatient (BNVA) | payer MEDICARE, SELFPAY | PROVIDERS: PCP Nurse Practitioner Family; Referring Provider Nurse Practitioner Family; Visit Provider Urology | DX: R31.9 Hematuria, unspecified (principal); N40.1 Benign prostatic hyperplasia with lower urinary tract symptoms; Z79.01 Long term (current) use of anticoagulants | CPT/HCPCS: 52000 ==

== ENCOUNTER 2025-07-12 11:52 | Outpatient (REF) | payer MEDICARE, SELFPAY ==
[2025-07-12 16:37] LABS: ALT 22 U/L (10-49); AST 26 U/L (<34); Albumin 4.2 g/dL (3.2-5.0); Alkaline Phosphatase 64 U/L (46-116); Anion Gap 10.7 mmol/L (3-11); BUN 19 mg/dL (9-23); Bilirubin, Total 0.5 mg/dL (0.2-1.2); CO2 27.3 mmol/L (20.0-31.0); Calcium 9.1 mg/dL (8.3-10.6); Chloride 108 mmol/L (98-107); Glucose 91 mg/dL (74-106); Potassium 4.0 mmol/L (3.5-5.1); Sodium 146 mmol/L (136-145); Total Protein 7.1 g/dL (5.7-8.2)
[2025-07-12 17:43] LABS: HCT 46.1 % (40.0-50.0); HGB 15.2 g/dL (13.5-17.5); MCH 29.2 pg (27.0-33.0); MCHC 33.0 % (32.0-36.0); MCV 89 fL (80-95); MPV 10.8 fL (8.0-11.0); Platelet Count 297 10^3/uL (130-400); RBC 5.20 10^6/uL (4.36-5.78); RDW 12.6 % (11.8-14.1); RDW-SD 41.1 fL; WBC 5.68 10^3/uL (4.4-10.8)
== END 2025-07-12 11:53 | disposition home or self-care (01) ==
LOC: NCHCN 11:52
PROVIDERS: PCP Nurse Practitioner Family; Visit Provider Family Medicine
DX: I48.91 Unspecified atrial fibrillation (principal)
CPT/HCPCS: 80053; 85027

== ENCOUNTER → 2025-07-25 09:24 | Outpatient (CLI) | payer MEDICARE, SELFPAY ==
--- NOTE | 2025-07-25 09:33 | DI.RAD_ITS ---
Exam(s) XR CHEST 2V PA LATERAL EXAM: XR CHEST 2V PA LATERAL CLINICAL HISTORY: Dyspnea, R06.09 TECHNIQUE: 2D digital imaging was performed. Two views. COMPARISON: CR XR CHEST 2V PA LATERAL from 12/04/2020 CR XR PORTABLE CHEST AP from 08/01/2021 CR XR PORTABLE CHEST AP from 03/15/2025 FINDINGS: HEART: Normal size. Aorta: Not dilated. PULMONARY VASCULATURE: Normal. MEDIASTINUM: Unremarkable. LUNGS: Clear. PLEURAL SPACE: No pleural effusion or pneumothorax. BONE:Old or subacute fracture of the right posterolateral 6th rib. Old midthoracic compression fracture. SOFT TISSUES: Unremarkable. IMPRESSION: No acute abnormality. DATA REPOSITORY: RADIATION DOSE DELIVERED:
== END ==
LOC: DI 09:24
PROVIDERS: PCP Nurse Practitioner Family; Visit Provider Family Medicine
DX: R06.09 Other forms of dyspnea (principal)
CPT/HCPCS: 71046